=== PATIENT | female | born 1985 | race African-American/Black ===

== ENCOUNTER 2020-02-28 09:21 | Emergency (ER) | payer BC, SELFPAY ==
--- NOTE | ~2020-02-28 | XR_ITS ---
EXAMINATION: XR chest 2V 02/28/2020 10:32 INDICATION: Chest pain. Respiratory distress. PROCEDURE: 2 view chest COMPARISON: No prior studies for comparison. FINDINGS: The lungs are clear. The cardiomediastinal silhouette is within normal limits. There are no pleural effusions. There is no pneumothorax suspected. IMPRESSION: 1: NO ACUTE CARDIOPULMONARY DISEASE. Reviewed, dictated and finalized at location B. 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
--- NOTE | ~2020-02-28 | XR_ITS ---
EXAMINATION: XR foot RT min 3V DATE: 02/28/2020 10:32 INDICATION: Right foot pain. TECHNIQUE: 4 views of right foot were obtained. COMPARISON: None. FINDINGS: Bone alignment is normal. No acute fracture. There is an old healed fracture of diaphysis o f fifth metatarsal. Joint spaces are normal. There is an enthesophyte at posterior aspect of calcanea l tuberosity. IMPRESSION: 1. No acute fracture. Reviewed, dictated and finalized at location A. TUTOR IMPRESSION: 1. No acute fracture.
[2020-02-28 09:43] VITALS: BP 121/62; PULSE 74; RESP 18; TEMP 36.2; O2SAT 99
[2020-02-28] MEDS: predniSONE 20 MG TABLET 60 MG PO (12:06)
--- NOTE | 2020-02-28 12:45 | ED.GENADULT ---
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 prolonged time noting aching pain worse with weightbearing and activity patient also notes she has had some tightness of the chest with history of asthma and tobacco abuse but denies chest pain fever chills or URI symptoms and on arrival is in the room in no distress and does not appear uncomfortable Related Data Home Medications Medication Instructions Recorded Confirmed albuterol sulfate INHALATION 02/28/20 Allergies Allergy/AdvReac Type Severity Reaction Status Date / Time sulfamethoxazole Allergy Other Verified 02/28/20 11:32 [From Bactrim] trimethoprim [From Bactrim] Allergy Other Verified 02/28/20 11:32 Review of Systems Review of Systems: All systems reviewed & are unremarkable except as noted in HPI and below PMFSH Past Medical History Medical History (Updated 02/28/20 @ 12:51 by Hussain Harrison PA-C) Asthma Social History Social History (Updated 02/28/20 @ 12:47 by Hussain Harrison PA-C) Smoking status: Current every day smoker Gender identity (if verbalized by the patient): Female Sexual Orientation (if Verbalized by the Patient): Straight or Heterosexual Exam Narrative: Exam Narrative: GENERAL: Well-appearing, well-nourished, and in no acute distress. HEAD: Normocephalic, atraumatic. EYES: PERRLA and EOMI. ENT: Nares clear, no rhinorrhea or epistaxis. Mucous membranes moist. CHEST: Clear to auscultation. No respiratory distress. Expiratory wheezes noted no crackles HEART: Regular rate and rhythm. No murmur heard. Normal peripheral pulses. ABDOMEN: Soft, nontender, nondistended, normal active bowel sounds. EXTREMITIES: Normal range of motion. No edema. Tenderness of the plantar surface of the right midfoot no deformities noted remainder of foot and extremity without deformity SKIN: Warm, dry, no rash. NEURO: No focal deficits. Alert and oriented x3. Neurovascularly intact PSYCH: Normal mood and affect. Course Course Emergency Course: Patient in the room in no distress was evaluated negative x-rays felt appropriate for outpatient reevaluation will be given steroids for bronchitis advised to discontinue smoking and given instructions for podiatry follow-up and reasons to return Vital Signs Vital signs: Vital Signs Temperature 97.2 F L 02/28/20 09:43 Pulse Rate 74 02/28/20 09:43 Respiratory Rate 18 02/28/20 09:43 Blood Pressure 121/62 02/28/20 09:43 Pulse Oximetry 99 02/28/20 09:43 Temperature 97.2 F L 02/28/20 09:43 Pulse Rate 74 02/28/20 09:43 Respiratory Rate 18 02/28/20 09:43 Blood Pressure 121/62 02/28/20 09:43 Pulse Oximetry 99 02/28/20 09:43 Medical Decision Making MDM Narrative Medical decision making narrative: Patients injury or pain is consistent with musculoskeletal etiology. No signs of neurological or vascular compromise on exam. Compartments and tisues are soft without signs of compartment syndrome. Pain is felt appropriate for further evaluation on an outpatient basis. Vital Signs Vital Signs: Vital Signs Temperature 97.2 F L 02/28/20 09:43 Pulse Rate 74 02/28/20 09:43 Respiratory Rate 18 02/28/20 09:43 Blood Pressure 121/62 02/28/20 09:43 Pulse Oximetry 99 02/28/20 09:43 Temperature 97.2 F L 02/28/20 09:43 Pulse Rate 74 02/28/20 09:43 Respiratory Rate 18 02/28/20 09:43 Blood Pressure 121/62 02/28/20 09:43 Pulse Oximetry 99 02/28/20 09:43 Imaging Data Radiologist's impression: ITS Impressions Chest X-Ray 02/28/20 10:34 IMPRESSION: 1: NO ACUTE CARD
[2020-02-28 13:02] VITALS: BP 118/51; PULSE 64; RESP 16; TEMP 36.9; O2SAT 100
== END 2020-02-28 13:01 | disposition home or self-care (01) ==
PROVIDERS: Emergency Provider Emergency Medicine
DX: M79.671 Pain in right foot (principal); J45.909 Unspecified asthma, uncomplicated; F17.200 Nicotine dependence, unspecified, uncomplicated
CPT/HCPCS: 71046; 73630; 99284; J7512

== ENCOUNTER 2020-08-11 22:40 | Emergency (ER) | payer BC, SELFPAY ==
--- NOTE | ~2020-08-11 | XR_ITS ---
EXAMINATION: XR chest 2V DATE: 08/11/2020 23:51 INDICATION: Cough and shortness of breath TECHNIQUE: PA and lateral views of the chest are obtained. COMPARISON: 02/28/2020 FINDINGS: The lungs are free of acute opacities. There is no pleural effusion or pneumothorax. The ca rdiomediastinal silhouette is normal. The visualized bones and soft tissues are unremarkable. IMPRESSION: 1. No acute cardiopulmonary abnormality. Reviewed, dictated and finalized at location A.
[2020-08-11 22:40] VITALS: BP 124/70; PULSE 91; RESP 21; TEMP 36.7; O2SAT 96
[2020-08-11 22:45] VITALS: PULSE 82
[2020-08-11 22:46] VITALS: PULSE 82; RESP 12; O2SAT 94
--- NOTE | 2020-08-11 23:05 | ED.ASTHMA ---
HPI - Asthma General Chief Complaint: Asthma Stated Complaint: asthma Time Seen by Provider: 08/11/20 22:57 Source: patient Mode of arrival: ambulatory Limitations: no limitations History of Present Illness HPI Narrative: Patient is a 34-year-old female complaining of asthma attack , started yesterday worse today. Patient states that she has been having URI symptoms, described as cough, productive, yellowish-white sputum, accompanied by nasal congestion for the past 2 to 3 days. Patient states that she has a history of asthma and takes albuterol for it but states that she has not used it in a while and could be . Denies any chest pain, abdominal pain, fever, chills, nausea, vomiting, or diarrhea. Related Data Home Medications Medication Instructions Recorded Confirmed albuterol sulfate INHALATION 02/28/20 Allergies Allergy/AdvReac Type Severity Reaction Status Date / Time sulfamethoxazole Allergy Other Verified 08/11/20 22:47 [From Bactrim] trimethoprim [From Bactrim] Allergy Other Verified 08/11/20 22:47 Review of Systems Review of Systems: All systems reviewed & are unremarkable except as noted in HPI and below Constitutional: Constitutional: Denies body ache(s), Denies chills, Denies excessive sweating, Denies fatigue, Denies fever(s), Denies headache(s), Denies lethargy, Denies malaise, Denies weakness and Denies weight loss Eyes: Eyes: Denies blurry vision, Denies change in vision and Denies loss of vision ENT: Denies dizziness, Denies ear discharge, Denies headache(s), Denies lip swelling, Denies epistaxis, Denies neck pain, Denies throat swelling and Denies tongue swelling Cardiovascular: Cardiovascular: Denies chest pain, Denies chest pain at rest, Denies chest pain with activity, Denies diaphoresis, Denies rapid heart rate, Denies edema, Denies irregular heart rhythm, Denies lightheadedness and Denies palpitations Respiratory: Respiratory: Denies chest congestion and Denies hemoptysis Gastrointestinal: Gastrointestinal: Denies abdominal pain, Denies melena, Denies hematochezia, Denies diarrhea, Denies nausea, Denies vomiting and Denies hematemesis Musculoskeletal: Musculoskeletal: Denies abnormal gait, Denies deformity, Denies joint swelling, Denies limited range of motion, Denies neck pain and Denies numbness Neurologic: Denies Abnormal speech present, Denies abnormal gait, Denies confusion, Denies dizziness, Denies headache(s), Denies focal weakness, Denies loss of vision, Denies numbness, Denies Other visual disturbances, Denies Sensory deficit (Neuro) and Denies weakness Psychiatric: Psychiatric: Denies confusion, Denies depression, Denies auditory hallucinations, Denies homicidal ideation and Denies suicidal ideation Endocrine: Endocrine: Denies cold intolerance, Denies excessive sweating, Denies fatigue, Denies heat intolerance and Denies palpitations Hematologic/Lymphatic: Hematologic/Lymphatic: Denies easy bleeding and Denies easy bruising Allergic/Immunologic: Allergic/Immunologic: Denies lip swelling, Denies throat swelling and Denies tongue swelling PMF Past Medical History Medical History (Updated 08/12/20 @ 00:01 by Law Tan MD) Asthma Social History Social History (Updated 02/28/20 @ 12:47 by Hussain Harrison PA-C) Smoking status: Current every day smoker Gender identity (if verbalized by the patient): Female Comments Past medical history: Asthma Social history: Half pack per day smoker, no EtOH or drug use Family history: Diabetes, hypertension Exam Const: General: cooperative, healthy appearing, comfortable, no acute distress, well developed, alert and awake; No confusion Orientation/consciousness: oriented to person, oriented to place, oriented to time, patient oriented x3 and No confusion Limitations: no limitations Other: Mild distress HENMT: Head: normal to inspection, normocephalic and atraumatic Ears: hearing grossly normal bilaterally, TM
[2020-08-11] MEDS: IPRATROPIUM BR 0.02% INH SOLN 0.5 MG/2.5 ML VIAL INHALATION (23:12)
[2020-08-11] MEDS: ALBUTEROL SULFATE NEB 2.5 MG/0.5 ML INH 5 MG INHALATION (23:12)
[2020-08-11 23:13] VITALS: PULSE 89; RESP 20
[2020-08-11 23:20] VITALS: PULSE 94; RESP 20
[2020-08-11 23:52] VITALS: PULSE 82; RESP 18; O2SAT 97
[2020-08-12 00:18] VITALS: BP 97/68; PULSE 84; RESP 18; TEMP 36.7; O2SAT 99
[2020-08-12] MEDS: ACETAMINOPHEN 325 MG TABLET 650 MG PO (00:18)
== END 2020-08-12 00:19 | disposition home or self-care (01) ==
PROVIDERS: Emergency Provider Emergency Medicine
DX: J45.21 Mild intermittent asthma with (acute) exacerbation (principal); J06.9 Acute upper respiratory infection, unspecified
CPT/HCPCS: 71046; 94640; 99283; A9270

== ENCOUNTER 2021-07-17 07:47 | Emergency (ER) | payer BC, SELFPAY ==
--- NOTE | ~2021-07-17 | US_ITS ---
EXAMINATION: US OB <= 14 weeks fetus DATE: 07/17/2021 12:09 INDICATION: Bleeding and abdominal pain during first trimester TECHNIQUE: Real-time pelvic ultrasound utilizing both a transvaginal and transabdominal probe was pe rformed. The interpreting radiologist was not present for the study. COMPARISON: None. FINDINGS: The uterus measures 8.3 x 4.7 x 4.4 cm. The endometrial complex [id number] mm in thickness with no d efinite intrauterine gestational sac. There are a few small nonspecific regions of increased echogeni city without posterior acoustic shadowing at the posterior margin of the endometrial complex potentia lly representing small amount of hemorrhage. The right ovary measures 3.2 x 2.0 x 1.5 cm. The left ovary measures 3.2 x 1.9 x 1.5 cm. 1.7 x 0.9 cm thick-walled hypoechoic corpus luteum cyst in the left ovary. Vascular flow identified in both ovari es on color Doppler. There is no free fluid in the pelvis. IMPRESSION: 1. No evident intrauterine gestational sac. Differential includes early , failed o r ectopic . 2. A few small foci of increased echogenicity without shadowing to suggest calcification along the po sterior margin of the endometrial complex which could represent hemorrhage. Reviewed, dictated and finalized at location A. IMPRESSION: 1. No evident intrauterine gestational sac. Differential includes early pregnan cy, failed or ectopic . 2. A few small foci of increased echogenicity without shadowing to suggest calc ification along the posterior margin of the endometrial complex which could rep resent hemorrhage.
[2021-07-17 07:51] VITALS: BP 122/75; PULSE 82; RESP 18; TEMP 36.4; O2SAT 99
--- NOTE | 2021-07-17 07:57 | PC.NURSE ---
Pt states she believes she is approximately 4 weeks . LMP in may. Pt reports light spotting since yesterday. Denies abd pain.
[2021-07-17 08:43] LABS: Add Urine Microscopic? YES; Appearance Urine Clear (Clear); Bilirubin Urine Negative (Negative); Blood Urine 3+ (Negative); Color Urine Yellow (Yellow); Glucose Urine UA Negative (Negative); Ketones Urine Negative (Negative); Leukocyte Esterase Ur Negative LEU/UL (Negative); Mucus Urine Rare /lpf; Nitrate Urine Negative (Negative); Protein Urine Negative (Negative); Squamous Epithelial Cell Urine Few /hpf (Few); Urobilinogen Urine Negative mg/dL (<2.0)
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
[2021-07-17 10:01] LABS: Basophils Percent Auto 0.3 % (0.2-1.2); Eosinophils Absolute Auto 0.1 K/mm3 (0-0.3); Eosinophils Percent Auto 1.5 % (0-4.4); Hematocrit 31.4 % (37.0-47.0); Hemoglobin 10.6 g/dL (12.0-15.0); Immature Granulocyte Absolute 0.01 K/mm3 (0.00-0.031); Immature Granulocyte Percent A 0.1 % (0-0.5); Lymphocytes Absolute Auto 2.09 K/mm3 (0.9-3.2); Lymphocytes Percent Auto 31.1 % (18.3-44.2); Mean Corpuscular HGB Conc 33.8 g/dl (32-36); Mean Corpuscular Hemoglobin 30.5 pg (26-34); Mean Corpuscular Volume 90.2 fl (80-100); Mean Platelet Volume 8.6 fl (7.4-10.4); Monocytes Absolute Auto 0.6 K/mm3 (0.1-0.6); Monocytes Percent Auto 9.1 % (2.6-8.5); Neutrophils Absolute Auto 3.9 K/mm3 (1.3-6.7); Neutrophils Percent Auto 57.9 % (45.5-73.1); Platelet Count Result 249 k/mm3 (150-375); Red Blood Count 3.48 M/mm3 (4.2-5.4); Red Cell Distribution Width 13.3 % (11.5-14.5); White Blood Count 6.7 K/mm3 (4.5-10.0)
[2021-07-17 10:14] LABS: Alanine Aminotransferase 13 U/L (4-35); Albumin Level 3.9 g/dL (3.5-5.1); Alkaline Phosphatase 63 U/L (38-126); Anion Gap 4 mmol/L (8-16); Aspartate Amino Transferase 22 U/L (14-36); Bilirubin,Total 0.2 mg/dL (0.2-1.3); Blood Urea Nitrogen 10 mg/dL (7-17); Calcium 8.6 mg/dL (8.4-10.2); Carbon Dioxide 22 mmol/L (22-30); Chloride 110 mmol/L (98-107); Estimated CRCL calculation 103 ml/min; Estimated Glomerular Filt Rate > 60; Glucose 91 mg/dL (65-110); Potassium 3.9 mmol/L (3.4-5.0); Sodium 136 mmol/L (137-145)
--- NOTE | 2021-07-17 11:41 | PC.NURSE ---
Pt in ultrasound.
--- NOTE | 2021-07-17 13:17 | PC.NURSE ---
Pt informatics physician liaison light asking to speak with physician. CINDY Hampton made aware.
[2021-07-17 13:22] VITALS: BP 112/97; PULSE 69; RESP 18; O2SAT 100
[2021-07-17 14:39] VITALS: BP 103/73; PULSE 70; RESP 16; O2SAT 99
== END 2021-07-17 14:27 | disposition home or self-care (01) ==
PROVIDERS: Physician Assistant; Emergency Provider Emergency Medicine
DX: O20.0 Threatened abortion (principal); Z3A.01 Less than 8 weeks gestation of pregnancy; O99.511 Diseases of the respiratory system complicating pregnancy, first trimester; J45.909 Unspecified asthma, uncomplicated; O99.331 Smoking (tobacco) complicating pregnancy, first trimester; F17.200 Nicotine dependence, unspecified, uncomplicated
CPT/HCPCS: 36415; 76801; 80053; 81001; 81025; 84702; 85025; 85461; 87086; 99284

== ENCOUNTER 2021-11-16 11:52 | Emergency (ER) | payer BC, SELFPAY ==
[2021-11-16 12:02] VITALS: PULSE 79; RESP 16; TEMP 36.6; O2SAT 100
[2021-11-16 12:30] VITALS: PULSE 98; RESP 23
--- NOTE | 2021-11-16 12:33 | PC.NURSE ---
Notified Dr Goodrich of pt's positive test results.
[2021-11-16] MEDS: IPRATROPIUM BR 0.02% INH SOLN 0.5 MG/2.5 ML VIAL INHALATION (12:35)
[2021-11-16] MEDS: ALBUTEROL SULFATE NEB 2.5 MG/3 ML INH 5 MG INHALATION (12:35)
--- NOTE | 2021-11-16 13:34 | ED.HA ---
HPI - Headache General Chief Complaint: Headache Stated Complaint: headache Time Seen by Provider: 11/16/21 11:58 History of Present Illness HPI Narrative: Patient is a 36-year-old female who presents ER with headache. Ongoing for week. Aching on the right side of the forehead and then also some pain in the neck. No fevers or chills or sweats. Mild sinus congestion no sore throat or cough. Has been trying some Benadryl for the congestion with minimal improvement. She takes Tylenol, ibuprofen, and BC powder for the headache which helps with the headache returns. Reports increased stress. Has not had a period since June 2021 when she had a miscarriage. Concerned she may be but has not yet taken a test. No lower abdominal pain. No vaginal bleeding or discharge. Denies numbness or tingling to the arms or legs. No recent trauma. Related Data Home Medications Medication Instructions Recorded Confirmed albuterol sulfate 90 mcg/actuation inhalation 02/28/20 07/22/21 breath activated powder inhaler Allergies Allergy/AdvReac Type Severity Reaction Status Date / Time sulfamethoxazole Allergy Other Verified 11/16/21 12:01 [From Bactrim] trimethoprim [From Bactrim] Allergy Other Verified 11/16/21 12:01 Review of Systems Review of Systems: All systems reviewed & are unremarkable except as noted in HPI and below Constitutional: Constitutional: Denies chills, Denies fatigue and Denies fever(s) Eyes: Eyes: Denies change in vision and Denies photophobia ENT: Reports nasal congestion and Denies sore throat Respiratory: Respiratory: Denies cough, Denies dyspnea and Denies wheezing Gastrointestinal: Gastrointestinal: Denies abdominal pain, Denies nausea and Denies vomiting Genitourinary: Genitourinary: Denies abnormal vaginal bleeding, Denies nocturia, Denies dysuria and Denies pelvic pain Neurologic: Denies syncope, Reports headache(s), Denies focal weakness and Denies numbness PMFSH Past Medical History Medical History Anxiety Asthma GERD (gastroesophageal reflux disease) Surgical History Surgical History No pertinent past surgical history [place] teeth removed Social History Social History Smoking status: Current every day smoker Tobacco type: cigarettes Alcohol intake: current Substance use: current Substance use type: marijuana Gender identity (if verbalized by the patient): Female Sexual Orientation (if Verbalized by the Patient): Straight or Heterosexual Exam Narrative: GENERAL: Well-appearing, well-nourished, and in no acute distress. HEAD: Normocephalic, atraumatic. EYES: PERRL and EOMI. ENT: Mucous membranes moist. Mild tenderness right frontal sinus. No maxillary sinus tenderness. TMs normal bilaterally. CHEST: Clear to auscultation. No respiratory distress. HEART: Regular rate and rhythm. Normal peripheral pulses. ABDOMEN: Soft, nontender, nondistended. EXTREMITIES: Normal range of motion. No edema. NEURO: Alert and oriented x3. PSYCH: Normal mood and affect. Course Course Emergency Course: Patient resting comfortably. Informed of results. Patient tearful after discovering she was . Reports she is worried about what family members will say. She does not currently have an OB although she has seen Dr. Vernon in the past. Discussed she is welcome to follow-up with Dr. Reyes but will provide her the name of the on-call OB. Patient inquiring whether her headache could be related to stress. Discussed that it is certainly a possibility. Recommend Tylenol for headache. Will provide some Flonase for the sinus congestion. Vital Signs Vital signs: Vital Signs Temperature 97.8 F 11/16/21 12:02 Pulse Rate 79 11/16/21 12:02 Respiratory Rate 16 11/16/21 12:02 Pulse Oxi
[2021-11-16 13:50] VITALS: BP 107/78; PULSE 74; O2SAT 100
== END 2021-11-16 13:52 | disposition home or self-care (01) ==
PROVIDERS: Emergency Provider Emergency Medicine
DX: O26.899 Other specified pregnancy related conditions, unspecified trimester (principal); R51.9 Headache, unspecified; O99.519 Diseases of the respiratory system complicating pregnancy, unspecified trimester; J45.909 Unspecified asthma, uncomplicated; O99.619 Diseases of the digestive system complicating pregnancy, unspecified trimester; K21.9 Gastro-esophageal reflux disease without esophagitis; O99.330 Smoking (tobacco) complicating pregnancy, unspecified trimester; F17.210 Nicotine dependence, cigarettes, uncomplicated; Z3A.00 Weeks of gestation of pregnancy not specified
CPT/HCPCS: 81025; 94640; 99283

== ENCOUNTER 2021-11-27 17:02 | Emergency (ER) | payer BC, SELFPAY ==
--- NOTE | ~2021-11-27 | US_ITS ---
EXAMINATION: US OB <= 14 weeks fetus INDICATION: 15 weeks , vaginal bleeding TECHNIQUE: Sonography of the pelvis was performed by transabdominal techniques. COMPARISON: None. RESULT: Uterus: - Orientation: Anteverted - Size: 12.6 x 9.6 x 9.2 cm - Myometrium: homogeneous echogenicity Gestation: - Intrauterine gestational sac: Single present - Embryo: Single present - [place] rump length: 7.57 cm, corresponding gestational age 13 weeks, 5 days -Gestational heart rate: present 145 bpm -Subgestational hematoma: Absent Right ovary: -Not visualized. No adnexal mass detected transabdominally. Left ovary: -Not visualized. No adnexal mass detected transabdominally. Pelvis free fluid: None. IMPRESSION: Single, live intrauterine gestation. Estimated Gestational Age: 13 weeks, 5 days by crown rump length. GRETCHEN by ultrasound 05/30/2022. Reviewed, dictated and finalized at location K. IMPRESSION: Single, live intrauterine gestation. Estimated Gestational Age: 13 weeks, 5 days by crown rump length. GRETCHEN by ultra sound 05/30/2022.
[2021-11-27 17:06] VITALS: BP 114/49; PULSE 92; RESP 19; TEMP 36.7; O2SAT 97
[2021-11-27 17:25] LABS: Basophils Percent Auto 0.2 % (0.2-1.2); Eosinophils Absolute Auto 0.4 K/mm3 (0-0.3); Eosinophils Percent Auto 4.1 % (0-4.4); Hematocrit 28.6 % (37.0-47.0); Hemoglobin 9.5 g/dL (12.0-15.0); Immature Granulocyte Absolute 0.02 K/mm3 (0.00-0.031); Immature Granulocyte Percent A 0.2 % (0-0.5); Lymphocytes Absolute Auto 2.03 K/mm3 (0.9-3.2); Lymphocytes Percent Auto 20.2 % (18.3-44.2); Mean Corpuscular HGB Conc 33.2 g/dl (32-36); Mean Corpuscular Hemoglobin 30.3 pg (26-34); Mean Corpuscular Volume 91.1 fl (80-100); Mean Platelet Volume 8.7 fl (7.4-10.4); Monocytes Absolute Auto 0.6 K/mm3 (0.1-0.6); Monocytes Percent Auto 5.5 % (2.6-8.5); Neutrophils Percent Auto 69.8 % (45.5-73.1); Platelet Count Result 246 k/mm3 (150-375); Red Blood Count 3.14 M/mm3 (4.2-5.4); Red Cell Distribution Width 12.9 % (11.5-14.5); White Blood Count 10.1 K/mm3 (4.5-10.0)
--- NOTE | 2021-11-27 17:51 | ED.PREGNANCY ---
HPI - General Chief complaint: Vaginal Bleeding Stated complaint: 15 weeks preg, spotting Time Seen by Provider: 11/27/21 17:32 History of Present Illness HPI Narrative: 36-year-old female who is 15 weeks with no care G4, P2 presents the emergency room for sudden onset of a scant amount of vaginal bleeding. Patient states that she saw vaginal bleeding began later this afternoon. Denies any abdominal pain or cramping. Patient admits that she recently had a miscarriage earlier this year. Related Data Home Medications Medication Instructions Recorded Confirmed albuterol sulfate 90 mcg/actuation inhalation 02/28/20 07/22/21 breath activated powder inhaler Allergies Allergy/AdvReac Type Severity Reaction Status Date / Time sulfamethoxazole Allergy Other Verified 11/27/21 18:35 [From Bactrim] trimethoprim [From Bactrim] Allergy Other Verified 11/27/21 18:35 Review of Systems Review of Systems: CONSTITUTIONAL: Denies fever, chills, or sweats. EYES: Denies visual changes, redness, or discharge. ENT: Denies rhinorrhea, congestion, sore throat, or otalgia. CARDIOVASCULAR: Denies chest pain, palpitations, or edema. RESPIRATORY: Denies cough or dyspnea. GASTROINTESTINAL: Denies abdominal pain, nausea, vomiting, or diarrhea. GENITOURINARY: Reports vaginal bleeding SKIN: Denies rash or itching. MUSCULOSKELETAL: Denies back pain, joint pain, or myalgia. NEUROLOGIC: Denies headache, numbness, dizziness, or weakness. PSYCHIATRIC: Denies anxiety or depression. PMFSH Past Medical History Medical History Anxiety Asthma GERD (gastroesophageal reflux disease) Surgical History Surgical History No pertinent past surgical history [place] teeth removed Social History Social History Smoking status: Current every day smoker Tobacco type: cigarettes Alcohol intake: current Substance use: current Substance use type: marijuana Gender identity (if verbalized by the patient): Female Sexual Orientation (if Verbalized by the Patient): Straight or Heterosexual Exam Narrative: GENERAL: Well-appearing, well-nourished, no physical limitations, and in no acute distress. HEAD: Normocephalic, atraumatic. EYES: Conjunctivae normal, PERRLA and EOMI. CHEST: Clear to auscultation. No respiratory distress. No wheezes rales or rhonchi. No tenderness. HEART: Regular rate and rhythm. No murmur heard. Normal peripheral pulses. ABDOMEN: Soft, nontender, nondistended, normal active bowel sounds. BACK: No CVA tenderness EXTREMITIES: Normal range of motion. No edema. No clubbing or cyanosis SKIN: Warm, dry, no rash. No noted wounds NEURO: No focal deficits. Alert and oriented x3. MAEW. CN's II-XI intact bilaterally, normal gait PSYCH: Cooperative. Normal mood and affect. Course Vital Signs Vital signs: Vital Signs Temperature 36.7 C 11/27/21 17:06 Pulse Rate 92 11/27/21 17:06 Respiratory Rate 19 11/27/21 17:06 Blood Pressure 114/49 L 11/27/21 17:06 Pulse Oximetry 97 11/27/21 17:06 Oxygen Delivery Room Air 11/27/21 17:06 Temperature 36.7 C 11/27/21 17:06 Pulse Rate 80 11/27/21 19:33 Respiratory Rate 20 11/27/21 19:33 Blood Pressure 106/64 11/27/21 19:33 Pulse Oximetry 97 11/27/21 19:33 Oxygen Delivery Room Air 11/27/21 17:06 MDM - OB/Uterine Contractions Lab Data Result diagrams: 11/27/21 17:13 Labs: Lab Results 11/27/21 11/27/21 11/27/21 Range/Units 17:13 17:13 17:13 WBC 10.1 H (4.5-10.0) K/mm3 RBC 3.14 L (4.2-5.4) M/mm3 Hgb 9.5 L (12.0-15.0) g/dL Hct 28.6 L (37.0-47.0) % MCV 91.1 (80-100) fl MCH 30.3 (26-34) pg MCHC 33.2 (32-36) g/dl RDW 12.9 (11.5-14.5) % Plt Count 246 (150-375) k/mm3 MPV 8.7 (7.4-10.4
--- NOTE | 2021-11-27 18:34 | PC.NURSE ---
pt taken to ultrasound at this time
--- NOTE | 2021-11-27 19:10 | PC.NURSE ---
Report received from LONI Chamberlain. Assumed care of patient at this time.
[2021-11-27 19:33] VITALS: BP 106/64; PULSE 80; RESP 20; O2SAT 97
== END 2021-11-27 20:00 | disposition home or self-care (01) ==
PROVIDERS: Emergency Medicine; Emergency Provider Nurse Practitioner Family
DX: O23.41 Unspecified infection of urinary tract in pregnancy, first trimester (principal); N39.0 Urinary tract infection, site not specified; O99.511 Diseases of the respiratory system complicating pregnancy, first trimester; J45.909 Unspecified asthma, uncomplicated; Z3A.13 13 weeks gestation of pregnancy; O99.331 Smoking (tobacco) complicating pregnancy, first trimester; F17.210 Nicotine dependence, cigarettes, uncomplicated
CPT/HCPCS: 36415; 76801; 84702; 85025; 85461; 99284

== ENCOUNTER 2021-11-28 20:10 | Emergency (ER) | payer BC, SELFPAY ==
[2021-11-28 21:07] VITALS: BP 106/80; PULSE 70; RESP 18; TEMP 36.5; O2SAT 100
--- NOTE | 2021-11-28 21:26 | ED.FEMALEGU ---
HPI - Female Genitourinary General Chief complaint: Vaginal Bleeding Stated complaint: 15 weeks preg, vaginal bleeding Time Seen by Provider: 11/28/21 21:17 History of Present Illness HPI Narrative: 36-year-old female returns to the emergency room for continued vaginal bleeding. . Patient is a approximately 14 weeks per her the pelvic ultrasound that was completed yesterday. Patient states that she feels that the bleeding is heavier than yesterday. Denies saturating any pads. Patient has not had any care up to this point. Denies any abdominal pain or cramping. Related Data Home Medications Medication Instructions Recorded Confirmed albuterol sulfate 90 mcg/actuation inhalation 02/28/20 07/22/21 breath activated powder inhaler Allergies Allergy/AdvReac Type Severity Reaction Status Date / Time sulfamethoxazole Allergy Other Verified 11/28/21 21:38 [From Bactrim] trimethoprim [From Bactrim] Allergy Other Verified 11/28/21 21:38 Review of Systems Review of Systems: CONSTITUTIONAL: Denies fever, chills, or sweats. EYES: Denies visual changes, redness, or discharge. ENT: Denies rhinorrhea, congestion, sore throat, or otalgia. CARDIOVASCULAR: Denies chest pain, palpitations, or edema. RESPIRATORY: Denies cough or dyspnea. GASTROINTESTINAL: Denies abdominal pain, nausea, vomiting, or diarrhea. GENITOURINARY: Reports vaginal bleeding SKIN: Denies rash or itching. MUSCULOSKELETAL: Denies back pain, joint pain, or myalgia. NEUROLOGIC: Denies headache, numbness, dizziness, or weakness. PSYCHIATRIC: Denies anxiety or depression. [facility] Past Medical History Medical History Anxiety Asthma GERD (gastroesophageal reflux disease) Surgical History Surgical History No pertinent past surgical history [place] teeth removed Social History Social History Smoking status: Current every day smoker Tobacco type: cigarettes Alcohol intake: current Substance use: current Substance use type: marijuana Gender identity (if verbalized by the patient): Female Sexual Orientation (if Verbalized by the Patient): Straight or Heterosexual Exam Narrative: GENERAL: Well-appearing, well-nourished, no physical limitations, and in no acute distress. HEAD: Normocephalic, atraumatic. EYES: Conjunctivae normal, PERRLA and EOMI. CHEST: Clear to auscultation. No respiratory distress. No wheezes rales or rhonchi. No tenderness. HEART: Regular rate and rhythm. No murmur heard. Normal peripheral pulses. ABDOMEN: Soft, nontender, nondistended, normal active bowel sounds. FHT 145 : Normal external female exam. Scant amount of vaginal blood in the vaginal vault Cervical os is closed. BACK: No CVA tenderness; No cervical/thoracic/lumbar tenderness, step-offs, bony abnormality; FROM EXTREMITIES: Normal range of motion. No edema. No clubbing or cyanosis SKIN: Warm, dry, no rash. No noted wounds NEURO: No focal deficits. Alert and oriented x3. MAEW. CN's II-XI intact bilaterally, normal gait PSYCH: Cooperative. Normal mood and affect. Course Vital Signs Vital signs: Vital Signs Temperature 36.5 C 11/28/21 21:07 Pulse Rate 70 11/28/21 21:07 Respiratory Rate 18 11/28/21 21:07 Blood Pressure 106/80 11/28/21 21:07 Pulse Oximetry 100 11/28/21 21:07 Oxygen Delivery Room Air 11/28/21 21:07 Temperature 36.5 C 11/28/21 21:07 Pulse Rate 70 11/28/21 21:07 Respiratory Rate 18 11/28/21 21:07 Blood Pressure 106/80 11/28/21 21:07 Pulse Oximetry 100 11/28/21 21:07 Oxygen Delivery Room Air 11/28/21 21:07 MDM - Female Genitourinary MDM Narrative Medical decision making narrative: Discussed case with Dr. Siddiqi. She recommends patient following up with an LEAN LEADER through [facility]. Lab Data Result diagrams:
[2021-11-28] MEDS: SODIUM CHLORIDE 0.9% IV 1,000 ML 999 ML IV CONT (21:43)
[2021-11-28 21:54] LABS: Basophils Percent Auto 0.3 % (0.2-1.2); Eosinophils Absolute Auto 0.4 K/mm3 (0-0.3); Eosinophils Percent Auto 4.6 % (0-4.4); Hematocrit 29.8 % (37.0-47.0); Hemoglobin 9.8 g/dL (12.0-15.0); Immature Granulocyte Absolute 0.03 K/mm3 (0.00-0.031); Immature Granulocyte Percent A 0.3 % (0-0.5); Lymphocytes Absolute Auto 2.08 K/mm3 (0.9-3.2); Lymphocytes Percent Auto 22.5 % (18.3-44.2); Mean Corpuscular HGB Conc 32.9 g/dl (32-36); Mean Corpuscular Hemoglobin 30.1 pg (26-34); Mean Corpuscular Volume 91.4 fl (80-100); Mean Platelet Volume 8.9 fl (7.4-10.4); Monocytes Absolute Auto 0.6 K/mm3 (0.1-0.6); Monocytes Percent Auto 6.8 % (2.6-8.5); Neutrophils Percent Auto 65.5 % (45.5-73.1); Platelet Count Result 263 k/mm3 (150-375); Red Blood Count 3.26 M/mm3 (4.2-5.4); White Blood Count 9.2 K/mm3 (4.5-10.0)
[2021-11-28 22:32] LABS: Appearance Urine Clear (Clear); Bilirubin Urine Negative (Negative); Blood Urine 3+ (Negative); Color Urine Yellow (Yellow); Glucose Urine UA Negative (Negative); Ketones Urine Negative (Negative); Leukocyte Esterase Ur Negative LEU/UL (Negative); Nitrate Urine Negative (Negative); Protein Urine Negative (Negative); Specific Grav Ur 1.025 (1.001-1.035)
[2021-11-28 22:47] LABS: Add Urine Microscopic? YES
[2021-11-28 22:48] LABS: RBC Urine 51-75 /hpf (0-2); Squamous Epithelial Cell Urine Moderate /hpf (Few); WBC Urine 0-3 /hpf
[2021-11-29] VITALS: BP 124/77; PULSE 72; RESP 16; O2SAT 100
== END 2021-11-29 00:02 | disposition home or self-care (01) ==
PROVIDERS: Emergency Provider Nurse Practitioner Family
DX: O20.9 Hemorrhage in early pregnancy, unspecified (principal); O99.512 Diseases of the respiratory system complicating pregnancy, second trimester; J45.909 Unspecified asthma, uncomplicated; O99.612 Diseases of the digestive system complicating pregnancy, second trimester; K21.9 Gastro-esophageal reflux disease without esophagitis; O99.332 Smoking (tobacco) complicating pregnancy, second trimester; F17.210 Nicotine dependence, cigarettes, uncomplicated; Z3A.14 14 weeks gestation of pregnancy
CPT/HCPCS: 36415; 81001; 85025; 96360; 99284; J7030

== ENCOUNTER 2022-02-13 07:55 | Observation (INO) | payer BC, SELFPAY ==
[2022-02-13] VITALS (8 sets, daily range): BP systolic 96–144; BP diastolic 44–99; PULSE 75–193; TEMP 36.6; BMI 23.8
--- NOTE | ~2022-02-13 | US_ITS ---
EXAMINATION: US OB limited DATE: 02/13/2022 10:14 INDICATION: Vaginal bleeding . Placental check. TECHNIQUE: Real-time ultrasound of the pelvis was performed. The interpreting radiologist was not pre sent for the study. COMPARISON: None. FINDINGS: There is a single living fetus in breech presentation. The placenta is anterior with no evident subc horionic hematoma. The caudal margin of the placenta is approximately 5.1 cm from the internal cervic al os. heart rate is 134 beats per minute (bpm). The amniotic fluid index is 11.9 cm, which is normal (5th%-95%: 9.7-22.2 cm at 25 weeks estimated gestational age). IMPRESSION: 1. Single living fetus in breech presentation with heart rate of 134 bpm. 2. Normal amniotic fluid index of 11.9 cm. 3. Normal anterior placenta with caudal margin 5.1 cm from the internal cervical os. Reviewed, dictated and finalized at location A. HOUSE DELIVERY DRIVER IMPRESSION: 1. Single living fetus in breech presentation with heart rate of 134 bpm . 2. Normal amniotic fluid index of 11.9 cm. 3. Normal anterior placenta with caudal margin 5.1 cm from the internal cervica l os.
--- NOTE | 2022-02-15 07:44 | PM.OBTRLD ---
OB - Triage/Final Diagnosis Visit Information Reason for evaluation: threatened labor Comments/Additional reasons for admission: I have assessed the risk for this patient, Loraine Arnold, and determined that she would benefit from observation care. Evaluation Laboratory results: Laboratory Tests 02/13/22 08:54 KB Hemoglobin Negative
== END 2022-02-13 11:05 | disposition home or self-care (01) ==
PROVIDERS: Admitting Provider Obstetrics & Gynecology; Visit Provider Obstetrics & Gynecology
DX: O47.02 False labor before 37 completed weeks of gestation, second trimester (principal); Z3A.25 25 weeks gestation of pregnancy
CPT/HCPCS: 36415; 76815; 85460; G0378; G0379

== ENCOUNTER 2022-11-05 08:34 | Emergency (ER) | payer OTHER, SELFPAY ==
[2022-11-05] VITALS (14 sets, daily range): BP systolic 100–140; BP diastolic 62–95; PULSE 66–104; RESP 12–20; TEMP 36.2; O2SAT 97–100
--- NOTE | ~2022-11-05 | XR_ITS ---
EXAMINATION: XR chest 2V DATE: 11/05/2022 11:14 INDICATION: Cough and congestion TECHNIQUE: PA and lateral views of the chest are obtained. COMPARISON: 08/11/2020 FINDINGS: The lungs are free of acute opacities. No pleural effusion or pneumothorax. The cardiomedia stinal silhouette is normal. The visualized bones and soft tissues are unremarkable. IMPRESSION: 1. No acute cardiopulmonary abnormality. Reviewed, dictated and finalized at location A.
--- NOTE | 2022-11-05 09:13 | ECG_ITS ---
Measurements Intervals [place] Rate: 59 P: 72 [place]: 179 QRS: 18 QRSD: 83 T: 11 QT: 418 QTc: 416 Interpretive Statements SINUS BRADYCARDIA NONSPECIFIC T-WAVE ABNORMALITY ABNORMAL ECG NO PREVIOUS ECG AVAILABLE FOR COMPARISON Electronically Signed On 11-05-2022 12:41:09 CDT by Onur Rose M.D.
--- NOTE | 2022-11-05 09:16 | ED.URI ---
HPI - URI/Sore Throat General Chief Complaint: Upper Respiratory Infection Stated Complaint: headache, not feeling well Time Seen by Provider: 11/05/22 08:56 Source: patient Mode of arrival: ambulatory Limitations: no limitations History of Present Illness HPI Narrative: Patient is a 37 y/o female who presents to the ED with c/o URI sx's. Patient reports she began feeling unwell yesterday morning with sore throat, myalgias, headache, cough, congestion, wheezing. She feels like her asthma is acting up. She denies difficulty breathing or feeling short of breath but states the wheezing has been bothersome. Patient has an albuterol inhaler at home, which she has been trying but does not feel it is helping. She reports she previously has done well with Ventolin, but states her insurance would not approve it. She denies any chest pain, lower extremity pain or swelling. Denies fevers. Denies cough, vomiting, abdominal pain. Patient took Robitussin and Tylenol today. Related Data Home Medications Medication Instructions Recorded Confirmed albuterol sulfate 90 mcg/actuation inhalation 02/28/20 07/22/21 breath activated powder inhaler Allergies Allergy/AdvReac Type Severity Reaction Status Date / Time sulfamethoxazole Allergy Other Verified 11/28/21 21:38 [From Bactrim] trimethoprim [From Bactrim] Allergy Other Verified 11/28/21 21:38 Review of Systems Review of Systems: CONSTITUTIONAL: Denies fever, chills, or sweats. ENT: See HPI. CARDIOVASCULAR: Denies chest pain, palpitations, or edema. RESPIRATORY: See HPI. GASTROINTESTINAL: Denies abdominal pain, nausea, vomiting. MUSCULOSKELETAL: Denies back pain, joint pain, or myalgia. NEUROLOGIC: See HPI. All systems reviewed & are unremarkable except as noted in HPI and below PMFSH Past Medical History Medical History Anxiety Asthma GERD (gastroesophageal reflux disease) Surgical History Surgical History No pertinent past surgical history [place] teeth removed Social History Social History Smoking status: Current every day smoker Tobacco type: cigarettes Alcohol intake: current Substance use: current Substance use type: marijuana Gender identity (if verbalized by the patient): Female Sexual Orientation (if Verbalized by the Patient): Straight or Heterosexual Exam Narrative: GENERAL: Well appearing, well-nourished, non-toxic, in no acute distress. HEAD: Normocephalic, atraumatic. ENT: MMs moist. No significant posterior pharynx erythema. No tonsillar hypertrophy or exudate. Uvula midline. NECK: Supple. No adenopathy, no masses. RESPIRATORY: Airway patent, respirations nonlabored. Diffuse tight lung sounds bilaterally, scattered expiratory wheezing. CARDIOVASCULAR: Regular rate and rhythm without murmurs, rubs, or gallops. Radial pulses 2+ and equal bilaterally. ABDOMINAL: Soft, nontender, nondistended, no hepatosplenomegaly. Normoactive BS. MUSCULOSKELETAL: Moves all extremities. Strength/ROM intact without gross deformities. No edema. SKIN: Warm, dry, normal color. No rashes. NEURO: A&O X3. Speech clear. Cranial nerves II-XII grossly intact. Steady gait. No ataxic movements. PSYCHIATRIC: Appropriate mood and affect. Normal interaction. Course Vital Signs Vital signs: Vital Signs Temperature 97.2 F L 11/05/22 08:35 Pulse Rate 104 H 11/05/22 08:35 Respiratory Rate 16 11/05/22 08:35 Blood Pressure 134/87 11/05/22 08:35 Pulse Oximetry 97 11/05/22 08:35 Oxygen Delivery Room Air 11/05/22 08:35 Temperature 97.2 F L 11/05/22 08:35 Pulse Rate 72 11/05/22 12:13 Respiratory Rate 20 11/05/22 12:13 Blood Pressure 100/67 11/05/22 12:13 Pulse Oximetry 100 11/05/22 12:13 Oxygen Delivery Room Air 11/05/22 08:43
[2022-11-05 09:22] LABS: Strep Group A RT-PCR NOT DETECTED (Negative)
[2022-11-05 09:33] LABS: Influenza A QL RT-PCR Negative (Negative); Influenza B QL RT-PCR Negative (Negative); SARS-CoV-2 RNA PCR Negative (Negative)
[2022-11-05] MEDS: IPRATROPIUM BR 0.02% INH SOLN 0.5 MG/2.5 ML VIAL 1.5 MG INHALATION (09:40)
[2022-11-05] MEDS: LEVALBUTEROL NEB 1.25 MG/3 ML 2.5 MG INHALATION (09:40)
[2022-11-05 09:42] LABS: Basophils Percent Auto 0.1 % (0.2-1.2); Hematocrit 36.7 % (37.0-47.0); Immature Granulocyte Absolute 0.02 K/mm3 (0.00-0.031); Immature Granulocyte Percent A 0.2 % (0-0.5); Lymphocytes Percent Auto 6.9 % (18.3-44.2); Mean Corpuscular HGB Conc 32.7 g/dl (32-36); Mean Corpuscular Hemoglobin 30.1 pg (26-34); Mean Platelet Volume 9.2 fl (7.4-10.4); Monocytes Absolute Auto 0.2 K/mm3 (0.1-0.6); Monocytes Percent Auto 2.8 % (2.6-8.5); Neutrophils Absolute Auto 7.8 K/mm3 (1.3-6.7); Platelet Count Result 269 k/mm3 (150-375); Red Blood Count 3.99 M/mm3 (4.2-5.4); Red Cell Distribution Width 12.7 % (11.5-14.5); White Blood Count 8.6 K/mm3 (4.5-10.0)
[2022-11-05] MEDS: KETOROLAC 30 MG/ML VIAL (*BKC) IV PUSH (09:46)
[2022-11-05] MEDS: methylPREDNISolone SOD SUCC 125 MG VIAL IV PUSH (09:46)
[2022-11-05] MEDS: SODIUM CHLORIDE 0.9% IV 1,000 ML 999 ML IV CONT (09:47)
[2022-11-05 10:10] LABS: Alanine Aminotransferase 18 U/L (6-35); Alkaline Phosphatase 61 U/L (38-126); Anion Gap 4 mmol/L (8-16); Aspartate Amino Transferase 20 U/L (14-36); Bilirubin,Total 0.3 mg/dL (0.2-1.3); Blood Urea Nitrogen 10 mg/dL (7-17); Calcium 8.9 mg/dL (8.4-10.2); Carbon Dioxide 20 mmol/L (22-30); Chloride 109 mmol/L (98-107); Estimated CRCL calculation 105 ml/min; Estimated Glomerular Filt Rate > 60; Glucose 140 mg/dL (65-110); Potassium 4.6 mmol/L (3.4-5.0); Sodium 133 mmol/L (137-145)
[2022-11-05 10:20] LABS: Troponin I < 0.012 ng/mL (0.000-0.034)
== END 2022-11-05 12:21 | disposition home or self-care (01) ==
PROVIDERS: Preventive Medicine Aerospace Medicine; Emergency Provider Physician Assistant
DX: J45.901 Unspecified asthma with (acute) exacerbation (principal); J06.9 Acute upper respiratory infection, unspecified; Z20.822 Contact with and (suspected) exposure to COVID-19; K21.9 Gastro-esophageal reflux disease without esophagitis; F17.210 Nicotine dependence, cigarettes, uncomplicated; R00.1 Bradycardia, unspecified; R94.31 Abnormal electrocardiogram [ECG] [EKG]
CPT/HCPCS: 36415; 71046; 80053; 84484; 85025; 87636; 87651; 93005; 94640; 96361; 96374; 96375; 99284; J1885; J2930; J7030

== ENCOUNTER 2023-07-22 19:25 | Observation (INO) | payer OTHER, SELFPAY ==
[2023-07-22] VITALS (15 sets, daily range): BP systolic 126–152; BP diastolic 64–108; PULSE 109–132; RESP 17–33; TEMP 36.1–36.5; O2SAT 90–100; BMI 24.3
--- NOTE | ~2023-07-22 | XR_ITS ---
EXAMINATION: XR chest 1V portable Exam Date/Time: 07/22/2023 20:00 CDT HISTORY: ASTHMA EXACERBATION Comparison: 11/05/2022. RESULT: Lines, tubes, and devices: None. Lungs and pleura: Clear. Cardiomediastinal silhouette: Stable. Other: No acute osseous or upper abdominal finding. Old right clavicular midshaft fracture, healed i n deformity IMPRESSION: No acute cardiopulmonary process. Reviewed, dictated and finalized at location K.
[2023-07-22] MEDS: ALBUTEROL SULFATE NEB 2.5 MG/3 ML INH 10 MG INHALATION ×2 (19:43→21:13)
[2023-07-22] MEDS: EPINEPHrine HCL INJ 1 MG/ML AMPUL 0.3 MG IM (19:45)
[2023-07-22] MEDS: methylPREDNISolone SOD SUCC 125 MG VIAL IV PUSH (19:45)
--- NOTE | 2023-07-22 19:47 | ED.ASTHMA ---
HPI - Asthma General Chief Complaint: Asthma Stated Complaint: asthma Time Seen by Provider: 07/22/23 19:33 Source: patient Mode of arrival: ambulatory Limitations: no limitations History of Present Illness HPI Narrative: PATIENT CAME TO THE EMERGENCY ROOM WITH SHORTNESS OF BREATH, HISTORY OF ASTHMA, ALBUTEROL IS NOT WORKING, SYMPTOMS STARTED IN THE LAST COUPLE DAYS AND GRADUALLY GETTING WORSE. SATURATION ON ARRIVAL TO THE ED WAS 89%. Related Data Home Medications Medication Instructions Recorded Confirmed albuterol sulfate 90 mcg/actuation inhalation 02/28/20 07/22/21 breath activated powder inhaler Allergies Allergy/AdvReac Type Severity Reaction Status Date / Time sulfamethoxazole Allergy Other Verified 11/28/21 21:38 [From Bactrim] trimethoprim [From Bactrim] Allergy Other Verified 11/28/21 21:38 Review of Systems Review of Systems: All systems reviewed & are unremarkable except as noted in HPI and below PMFSH Past Medical History Medical History Anxiety Asthma GERD (gastroesophageal reflux disease) Surgical History Surgical History No pertinent past surgical history [place] teeth removed Social History Social History Smoking status: Current every day smoker Tobacco type: cigarettes Alcohol intake: current Substance use: current Substance use type: marijuana Gender identity (if verbalized by the patient): Female Sexual Orientation (if Verbalized by the Patient): Straight or Heterosexual Exam Narrative: GENERAL APPEARANCE: WELL-DEVELOPED, WELL-NOURISHED SKIN: NORMAL COLOR HEAD: NORMOCEPHALIC, NONTRAUMATIC EYES: CLEAR CONJUNCTIVA ENT: OROPHARYNX NORMAL, EARS NORMAL, NOSE NORMAL NECK: SUPPLE, NONTENDER CHEST AND RESPIRATORY: SIGNIFICANT DIMINUTION OF AIR ENTRY BILATERALLY, FEW FINE WHEEZING BILATERALLY, INTERCOSTAL RETRACTION, ACTIVE RESPIRATORY MUSCLES HEART: TACHYCARDIA ABDOMEN: SOFT, NONTENDER, NO ORGANOMEGALY, QUIET BOWEL SOUNDS VASCULAR: NORMAL PERIPHERAL PULSES, NORMAL CAPILLARY REFILL. 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 IS NORMAL TESTED, NO GROSS MOTOR DEFICIT Course Reevaluation(s) Reevaluation #1: IMPROVING Date: 07/22/23 Time: 22:19 Vital Signs Vital signs: Vital Signs Temperature 36.5 C 07/22/23 19:26 Pulse Rate 125 H 07/22/23 19:26 Respiratory Rate 24 H 07/22/23 19:26 Blood Pressure 152/96 H 07/22/23 19:26 Pulse Oximetry 90 07/22/23 19:26 Oxygen Delivery Room Air 07/22/23 19:26 Temperature 36.5 C 07/22/23 19:26 Pulse Rate 118 H 07/22/23 22:15 Respiratory Rate 19 07/22/23 22:15 Blood Pressure 138/81 07/22/23 22:15 Pulse Oximetry 100 07/22/23 22:15 Oxygen Delivery BiPAP 07/22/23 21:38 Oxygen Flow Rate 2 07/22/23 19:45 MDM - Asthma MDM Narrative Medical decision making narrative: PATIENT CAME TO THE ED BY PRIVATE CAR WITH SEVERE RESPIRATORY DISTRESS, HISTORY OF ASTHMA, PHYSICAL EXAMINATION SHOWED MARKED DIMINUTION OF AIR ENTRY BILATERALLY, FEW FINE WHEEZING BILATERALLY, EPINEPHRINE 0.3 MG IM, SOLU-MEDROL 125 MG IV, 10 MG OF ALBUTEROL NEBULIZER FOR 1 HOUR, TO G OF MAGNESIUM IV WITH LITTLE IMPROVEMENT. REPEATED EPINEPHRINE 0.5 MG IM AND 10 MG OF ALBUTEROL OVER 1 HOUR AND 0.5 MG OF ATROVENT TIME 1, WITH SLIGHT IMPROVEMENT, NOT SIGNIFICANT ENOUGH. BIPAP STARTED 08/03 PATIENT HAD SOME IMPROVEMENT BUT NOT SIGNIFICANT ENOUGH TO BE DISCHARGED HOME. ADMIT TO IMU DISCUSSED WITH THE HOSPITALIST. Differential Diagnos
--- NOTE | 2023-07-22 19:49 | PC.NURSE ---
Pt arrives to treatment room tachypnic, tachycardic, gasping, tripoding, with audible wheezing. States she has recently had what felt like a URI with productive white sputum. Reports using her inhaler and neb at home without relief. REsp and ERP notified and to bedside within 5 min. Orders received.
[2023-07-22 20:13] LABS: Basophils Absolute Auto 0.1 K/mm3 (0.0-0.1); Basophils Percent Auto 0.6 % (0.2-1.2); Eosinophils Absolute Auto 0.4 K/mm3 (0-0.3); Eosinophils Percent Auto 5.1 % (0-4.4); Hemoglobin 12.3 g/dL (12.0-15.0); Immature Granulocyte Absolute 0.01 K/mm3 (0.00-0.031); Immature Granulocyte Percent A 0.1 % (0-0.5); Lymphocytes Absolute Auto 2.93 K/mm3 (0.9-3.2); Lymphocytes Percent Auto 35.4 % (18.3-44.2); Mean Corpuscular HGB Conc 33.2 g/dl (32-36); Mean Corpuscular Hemoglobin 29.6 pg (26-34); Mean Corpuscular Volume 88.9 fl (80-100); Mean Platelet Volume 9.1 fl (7.4-10.4); Monocytes Absolute Auto 0.7 K/mm3 (0.1-0.6); Monocytes Percent Auto 8.3 % (2.6-8.5); Neutrophils Absolute Auto 4.2 K/mm3 (1.3-6.7); Neutrophils Percent Auto 50.5 % (45.5-73.1); Platelet Count Result 265 k/mm3 (150-375); Red Blood Count 4.16 M/mm3 (4.2-5.4); Red Cell Distribution Width 13.6 % (11.5-14.5); White Blood Count 8.3 K/mm3 (4.5-10.0)
[2023-07-22 20:26] LABS: Anion Gap 5 mmol/L (4-12); Blood Urea Nitrogen 9 mg/dL (7-17); Calcium 8.9 mg/dL (8.4-10.2); Carbon Dioxide 25 mmol/L (22-30); Chloride 109 mmol/L (98-107); Estimated Glomerular Filt Rate > 60; Glucose 113 mg/dL (65-110); Potassium 3.4 mmol/L (3.4-5.0); Sodium 139 mmol/L (137-145)
[2023-07-22] MEDS: MAGNESIUM SULF 2 GM/WATER 50ML 2 GM/50 ML BAG IVPB (20:42)
[2023-07-22] MEDS: EPINEPHrine HCL INJ 1 MG/ML AMPUL 0.5 MG IM ×2 (20:42→21:16)
[2023-07-22] MEDS: ACETAMINOPHEN 500 MG TABLET 1000 MG PO (21:16)
[2023-07-22 21:22] LABS: Alveolar/Arterial O2 Gradient 133.4 mmHg; Fractional Inspired Oxygen 36 %; HCO3 ABG 23.7 mEq/l (22.0-26.0); Oxygen Content ABG 16.6 %vol (16.0-22.0); Oxygen Saturation ABG 93.8 % (95.0-100.0); Oxyhemoglobin 92.6 % THb (90.0-100.0); PCO2 ABG 43.9 mmHg (35.0-45.0); PO2 ABG 72.4 mmHg (80.0-100.0); PO2 FiO2 Ratio Arterial Blood 2.01 %; Total Hemoglobin 12.7 g/dL (12.0-18.0)
[2023-07-22 21:23] LABS: Device NASAL CANNULA; Modified Allen's Test Pass; Site Drawn RIGHT RADIAL
--- NOTE | 2023-07-22 21:56 | PM.IMHP ---
H&P: HPI History of Present Illness Date/Time: 07/22/23 21:56 Chief Complaint: Asthma attack Narrative: 37-year-old female with a past medical history of moderate persistent asthma, tobacco use and marijuana use who presented to the ER due to respiratory distress from acute asthma exacerbation. Patient reports that she usually uses her rescue inhaler 2 to 3 times a week and has been compliant with her inhaled corticosteroids. She reports that she usually has asthma exacerbations twice a year that required hospitalization. She has required BiPAP support several times but has never required intubation. She reports that her asthma exacerbations are usually triggered by changes in the season. She she denies any lower extremity swelling, calf pain, recent travel or ill contacts. She went to [facility] a couple of days ago and received a prescription for prednisone. She went to get the prescription filled today but decided that her symptoms were so bad that she needs to come to the ER for evaluation. Oxygen saturations in the ER were in the upper 80s on room air. After nebulizer treatments patient was still having hypoxia. She also had significant work of breathing, tachypnea and retractions. She was then placed on BiPAP which improved her symptoms. She received 2 hour long albuterol nebulizers with Atrovent added to the 2nd nebulizer treatment. She also received 125 mg of IV Solu-Medrol, magnesium and for doses of IM epinephrine. She reports that she will often get pain in her back when she has an asthma exacerbation. She denies any ripping or tearing pain, chest pain or palpitations. Review of Systems Review of Systems: 12 systems were reviewed with pertinent positives and negatives per HPI. Except as documented in the HPI, all other systems were reviewed and are negative. She reports some irregular menstrual cycles ever since she had her tubal ligation last year. [facility] Past Medical History Medical History Anxiety Asthma GERD (gastroesophageal reflux disease) Surgical History Surgical History (Updated 07/23/23 @ 01:32 by Jacy Chen DO) History of section History of tubal ligation [place] teeth removed Family History Family History Grandparent Asthma Sibling Asthma Mother Diabetes mellitus Hypertension Father Hypertension Social History Social History (Updated 07/23/23 @ 01:34 by Jacy Chen DO) Social History: She lives at home with her 3 children ages 18, 8 and 1-year-old. 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 She has smoked as much as 0.5 packs of cigarettes per day since she was in her early 20s. She occasionally smokes marijuana. Every few months and only in moderation. Code status: Full code Surrogate decision maker: Nikki Crisostomo Smoking packs per day: 0.25 Smoking cigarettes per day: 5.0 Years smoked: 5 Smoking pack-years: 1.25 Smoking status: Current every day smoker Tobacco type: cigarettes Alcohol intake: current Substance use: never Substance use type: does not use Do You Feel Safe in your Home?: Yes Lack of Transportation: No Lack of Food: Sometimes True Current Housing: Decline to Answer Concerned About Future Housing: Decline to Answer Difficulty Paying Gas/Electric Bills: Decline to Answer Difficulty Paying for Meds: Decline to Answer Currently Unemployed: Decline to Answer Education: Decline to Answer Difficulty w/ Childcare or Family Care: Decline to Answer Gender identity (if verbalized by the patient): Female Sexual Orientation (if Verbalized by the Patient): Straight or Heterosexual Spiritual care concerns: No Meds Home Medications and Allergies Home Medications Medication Instructions Recorded Confirmed Type prednisone 20 mg tablet 20 mg PO BID 5 days #10 tabs 02/28/20 0
[2023-07-22] MEDS: IPRATROPIUM BR 0.02% INH SOLN 0.5 MG/2.5 ML VIAL INHALATION (21:57)
--- NOTE | 2023-07-22 22:08 | ECG_ITS ---
SEE SCANNED COPY FOR CONFIRMED REPORT MTDD
[2023-07-22 22:37] LABS: Influenza A QL RT-PCR Negative (Negative); Influenza B QL RT-PCR Negative (Negative); RSV RNA, RT-PCR Negative (Negative); SARS-CoV-2 RNA PCR Negative (Negative)
--- NOTE | 2023-07-22 23:10 | PC.NURSE ---
This patient, Loraine Arnold, was admitted to IMU Room 213-01. Patient/family oriented to hospital policies and general routines including ID bracelet, bed and alarms, visiting hours, pain management, procedures, bathroom and other care routines, personal items, smoking policy, room service/diet, and visiting hours. Information on how to activate the Rapid Response Team has been discussed. Patient/Family are encouraged to report perceived risks to care and to ask questions if they do not understand what they are told or what they should do.
[2023-07-22] MEDS: methylPREDNISolone SOD SUCC 125 MG VIAL 60 MG IV PUSH (23:33)
[2023-07-23] VITALS (25 sets, daily range): BP systolic 103–142; BP diastolic 53–74; PULSE 70–117; RESP 14–22; TEMP 36.5–36.9; O2SAT 96–98
[2023-07-23] MEDS: IPRATROPIUM 0.5 MG/ALBUTEROL SULFATE 2.5 MG AMPUL.NEB 3 ML INHALATION ×6 (00:48→20:26)
[2023-07-23] MEDS: ACETAMINOPHEN 325 MG TABLET 650 MG PO ×4 (03:34→20:22)
[2023-07-23 04:55] LABS: Hematocrit 37.8 % (37.0-47.0); Hemoglobin 12.2 g/dL (12.0-15.0); Mean Corpuscular HGB Conc 32.3 g/dl (32-36); Mean Corpuscular Hemoglobin 29.3 pg (26-34); Mean Corpuscular Volume 90.6 fl (80-100); Platelet Count Result 272 k/mm3 (150-375); Red Blood Count 4.17 M/mm3 (4.2-5.4); Red Cell Distribution Width 13.8 % (11.5-14.5); White Blood Count 8.9 K/mm3 (4.5-10.0)
[2023-07-23 05:11] LABS: Anion Gap 12 mmol/L (4-12); Blood Urea Nitrogen 9 mg/dL (7-17); Carbon Dioxide 17 mmol/L (22-30); Chloride 107 mmol/L (98-107); Estimated CRCL calculation 93 ml/min; Estimated Glomerular Filt Rate > 60; Glucose 194 mg/dL (65-110); Potassium 3.9 mmol/L (3.4-5.0); Sodium 136 mmol/L (137-145)
[2023-07-23] MEDS: methylPREDNISolone SOD SUCC 125 MG VIAL 60 MG IV PUSH ×3 (06:22→22:32)
[2023-07-23] MEDS: NICOTINE (*PBKC) 2 MG GUM PO ×2 (06:22→14:40)
[2023-07-23] MEDS: ENOXAPARIN 40 MG/0.4 ML SYRINGE SUB-Q (08:16)
[2023-07-23] MEDS: FLUTICASONE/SALMETEROL 45-21 MCG INHALER 1 PUFF 2 PUFF INHALATION ×2 (08:50→20:27)
--- NOTE | 2023-07-23 11:45 | PM.IMPN ---
Progress Note: A&P Assessment and Plan (1) Acute hypoxic respiratory failure: Code(s): J96.01 - Acute respiratory failure with hypoxia Status: Acute Assessment and Plan: Patient presents with acute respiratory failure. She was noted to have retractions, tachypnea tachycardia. For SpO2 was in the 80s. She was started on supplemental oxygen. ABG 7.35/44/72 on 4 L. Patient ultimately was placed on BiPAP. She received 2 hour long albuterol nebulizer treatments with Atrovent. She was started on Solu-Medrol IV. She was given magnesium and IM epinephrine x3. She was able to be weaned off the BiPAP overnight. She is on room air currently. Still wheezing but feels much better. Continue to follow closely. (2) Asthma with status asthmaticus: Qualifiers: Asthma persistence: persistent Asthma severity: moderate Qualified Code(s): J45.42 - Moderate persistent asthma with status asthmaticus Code(s): J45.902 - Unspecified asthma with status asthmaticus Status: Acute Assessment and Plan: As above. Patient is not on Advair at home she states. She only uses the albuterol rescue inhaler. Suspected triggers were change in season, ongoing tobacco use and ongoing marijuana use. She was encouraged to follow-up with a primary care doctor to get a referral to see a instructional writer to have her asthma better treated. Advair has been added here which will continue Continue steroids. Add sliding scale protocol (3) Nonsustained ventricular tachycardia: Code(s): I47.29 - Other ventricular tachycardia Status: Acute Assessment and Plan: Patient had 5 beat run of nonsustained V-tach today. EKG showed normal sinus rhythm with nonspecific T-wave changes. She does have a metabolic acidosis noted. Potassium 3.9. Check magnesium. Monitor on telemetry. (4) Metabolic acidosis: Code(s): E87.20 - Acidosis, unspecified Status: Acute Assessment and Plan: Patient developed a metabolic non gap acidosis. Probably related to above. Will continue to follow. (5) Tobacco abuse disorder: Code(s): Z72.0 - Tobacco use Status: Acute Assessment and Plan: Patient was educated about the benefits of smoking cessation (6) Marijuana use: Code(s): F12.90 - Cannabis use, unspecified, uncomplicated Status: Acute Assessment and Plan: Patient was educated about the benefits of stopping marijuana use. She was also instructed that if she wants to use marijuana, then she should use another route of ingestion such as oral intake instead of smoking marijuana. She voiced understanding of this. Plan DVT prophylax -Lovenox Code status -full Subjective Date/time seen: 07/23/23 11:45 Interval history: 37yo female with anxiety, asthma, tobacco abuse and marijuana abuse here for respiratory distress from acute asthma exacerbation. Shortness of breath is better. She is having crampy abdominal pain. Still wheezing. She is up walking to the bathroom but does have dyspnea on exertion. She does state that she was taking prednisone from the ER prior to admission the past 2-3 days Exam Narrative: AF 98.4 122/69 96 14 96% ra Gen - NARD Chest - diffuse expiratory wheezes bilaterally CV - RRR S1/S2. Telemetry showing 5 beat run nonsustained V-tach otherwise no significant dysrhythmias Abd - Soft, NT/ND, Positive BS Ext - No pedal edema Psych - Nml mood and affect Skin - Warm and dry Objective Data Vital Signs Vital Signs: Vital Signs - 24 hr 07/22/23 19:26 07/22/23 19:45 07/22/23 19:45 Temperature 97.7 F Pulse Rate 125 H 125 H 120 H Respiratory Rate 24 H 30 H Blood Pressure 152/96 H Pulse Oximetry 90 Oxygen Delivery Room Air Oxygen Flow Rate 07/22/23 19:45 07/22/23 20:47 07/22/23 21:16 Temperature Pulse Rate 132 H 126 H Respiratory Rate 33 H 25 H Blood Pressure Pulse Oximetry 94 O
--- NOTE | 2023-07-23 12:34 | PCCCNOTE ---
On 07/23/23, the student, [Mikala Rodriguez ], provided care and completed [facility] documentation on this patient. I have reviewed the student's documentation and agree with the findings.
[2023-07-23] MEDS: LORATADINE 10 MG TABLET PO (18:10)
[2023-07-23 20:07] LABS: Glucose Point of Care 211 mg/dl (65-105)
[2023-07-23] MEDS: KETOROLAC 30 MG/ML VIAL (*BKC) IV PUSH (22:44)
[2023-07-24] VITALS (16 sets, daily range): BP systolic 109–120; BP diastolic 58–64; PULSE 72–99; RESP 17–18; TEMP 35.9–36.4; O2SAT 98–99
[2023-07-24] MEDS: IPRATROPIUM 0.5 MG/ALBUTEROL SULFATE 2.5 MG AMPUL.NEB 3 ML INHALATION ×4 (00:22→12:58)
[2023-07-24 05:01] LABS: Anion Gap 8 mmol/L (4-12); Blood Urea Nitrogen 10 mg/dL (7-17); Calcium 9.2 mg/dL (8.4-10.2); Carbon Dioxide 21 mmol/L (22-30); Chloride 105 mmol/L (98-107); Estimated CRCL calculation 93 ml/min; Estimated Glomerular Filt Rate > 60; Glucose 223 mg/dL (65-110); Potassium 4.2 mmol/L (3.4-5.0); Sodium 134 mmol/L (137-145)
[2023-07-24 05:07] LABS: Hemoglobin A1C 5.6 % (<5.7)
[2023-07-24 05:25] LABS: SPREG INTERNAL CONTROL Positive; Serum Qual hCG Negative
[2023-07-24] MEDS: methylPREDNISolone SOD SUCC 125 MG VIAL 60 MG IV PUSH (05:44)
[2023-07-24 07:36] LABS: Glucose Point of Care 212 mg/dl (65-105)
[2023-07-24] MEDS: LORATADINE 10 MG TABLET PO (08:15)
[2023-07-24] MEDS: INSULIN ASPART (*BKC) 100 UNITS/ML SUB-Q (08:15)
[2023-07-24] MEDS: predniSONE 20 MG TABLET 40 MG PO (08:17)
[2023-07-24] MEDS: FLUTICASONE/SALMETEROL 45-21 MCG INHALER 1 PUFF 2 PUFF INHALATION (08:25)
[2023-07-24 11:07] LABS: Glucose Point of Care 179 mg/dl (65-105)
--- NOTE | 2023-07-24 16:13 | PM.DS ---
DS: Admitting Diagnosis Discharge Date 07/24/23 Admitting Diagnosis Shortnes of breath DS: Discharge Diagnosis Discharge Diagnosis (1) Acute hypoxic respiratory failure: Code(s): J96.01 - Acute respiratory failure with hypoxia Status: Acute (2) Asthma with status asthmaticus: Qualifiers: Asthma severity: moderate Asthma persistence: persistent Qualified Code(s): J45.42 - Moderate persistent asthma with status asthmaticus Code(s): J45.902 - Unspecified asthma with status asthmaticus Status: Acute (3) Nonsustained ventricular tachycardia: Code(s): I47.29 - Other ventricular tachycardia Status: Acute (4) Metabolic acidosis: Code(s): E87.20 - Acidosis, unspecified Status: Acute (5) Tobacco abuse disorder: Code(s): Z72.0 - Tobacco use Status: Acute (6) Marijuana use: Code(s): F12.90 - Cannabis use, unspecified, uncomplicated Status: Acute DS: Summary Hospital Course Reason for hospitalization: 37yo female with anxiety, asthma, tobacco abuse and marijuana abuse here for respiratory distress from acute asthma exacerbation. Please see H&P for details Hospital Course: Patient presents with acute respiratory failure.? She was noted to have retractions, tachypnea and tachycardia. Hrr SpO2 was in the 80s.? She was started on supplemental oxygen.? ABG 7.35/44/72 on 4 L. Patient ultimately was placed on BiPAP.? She received 2 hour long albuterol nebulizer treatments with Atrovent.? She was started on Solu-Medrol IV.? She was given magnesium and IM epinephrine x3.?She was tarted on BiPAP but able to be weaned off the BiPAP overnight.? She was ultimately weaned to room air. Patient is not on Advair at home.? She only uses the albuterol rescue inhaler. Suspected triggers were change in season, ongoing tobacco use and ongoing marijuana use. She was encouraged to follow-up with a primary care doctor to get a referral to see a sample hand to have her asthma better treated. Advair was added here. Patient was educated about the benefits of smoking cessation. Patient was educated about the benefits of stopping marijuana use.? She was also instructed that if she wants to use marijuana, then she should use another route of ingestion such as oral intake instead of smoking marijuana.? She voiced understanding of this. Patient had 5 beat run of nonsustained V-tach once. EKG showed normal sinus rhythm with nonspecific T-wave changes. She does have a metabolic acidosis noted that improved. No recurrence. She was weaned to oral steroids. SHe overall did well and was able to be discharged home on 05/25/23. Status at Discharge Cognitive/behavioral status at discharge: stable Time Spent with Patient Time attestation: Total time spent providing and/or coordinating discharge services: 36 minutes Time spent: Greater than 30 minutes Exam Narrative: AF 96.6 120/62 73 18 99% ra Gen - NARD Chest - scattered expiratory wheezes, nml RR CV - RRR S1/S2. Telemetry showing no significant dysrhythmias Abd - Soft, NT/ND, Positive BS Ext - No pedal edema Psych - Nml mood and affect Skin - Warm and dry DS: Data Data Completed and Pending Labs on day of discharge: Labs from last 24 hours 07/24/23 07/24/23 07/24/23 10:58 07:33 04:17 Sodium 134 L Potassium 4.2 Chloride 105 Carbon Dioxide 21 L Anion Gap 8 BUN 10 Creatinine 0.60 L Estim Creat Clear Calc 93 Estimated GFR > 60 Glucose 223 H POC Capillary Glucose 179 H 212 H Hemoglobin A1c 5.6 Calcium 9.2 Magnesium 2.0 Serum HCG, Qual Negative 07/23/23 20:00 Sodium Potassium Chloride Carbon Dioxide Anion Gap BUN Creatinine Estim Creat Clear Calc Estimated GFR Glucose POC Capillary Glucose 211 H Hemoglobin A1c Calcium Magnesium Serum HCG, Qual Discharge Plan Discharge Attending physician on discharge: Pastor Mixon
[2023-07-24 16:25] LABS: Glucose Point of Care 178 mg/dl (65-105)
[2023-07-24] MEDS: ACETAMINOPHEN 325 MG TABLET 650 MG PO (16:48)
== END 2023-07-24 17:15 | disposition home or self-care (01) ==
LOC: ANHED 22:28 → ANHIMU 22:57
PROVIDERS: Admitting Provider Internal Medicine; Emergency Provider Emergency Medicine; Visit Provider Internal Medicine
DX: J96.01 Acute respiratory failure with hypoxia (principal); J45.42 Moderate persistent asthma with status asthmaticus; I47.29 Other ventricular tachycardia; E87.20 Acidosis, unspecified; Z79.51 Long term (current) use of inhaled steroids; F17.210 Nicotine dependence, cigarettes, uncomplicated; F12.90 Cannabis use, unspecified, uncomplicated; Z20.822 Contact with and (suspected) exposure to COVID-19
CPT/HCPCS: 36415; 36600; 71045; 80048; 82805; 82948; 83036; 83735; 84703; 85025; 85027; 87637; 93005; 94640; 96365; 96366; 96372; 96374; 96375; 96376; 99285; A9270; G0378; G0379; J0171; J1650; J1815; J1885; J2919; J3475; J7512

== ENCOUNTER 2023-12-14 14:22 | Outpatient (CLI) | payer OTHER, SELFPAY ==
[2023-12-14 18:43] LABS: Basophils Percent Auto 0.4 % (0.2-1.2); Eosinophils Absolute Auto 0.3 K/mm3 (0-0.3); Eosinophils Percent Auto 4.8 % (0-4.4); Hematocrit 36.5 % (37.0-47.0); Hemoglobin 12.6 g/dL (12.0-15.0); Immature Granulocyte Absolute 0.01 K/mm3 (0.00-0.031); Immature Granulocyte Percent A 0.2 % (0-0.5); Lymphocytes Percent Auto 35.5 % (18.3-44.2); Mean Corpuscular HGB Conc 34.5 g/dl (32-36); Mean Corpuscular Hemoglobin 31.1 pg (26-34); Mean Corpuscular Volume 90.1 fl (80-100); Mean Platelet Volume 9.4 fl (7.4-10.4); Monocytes Absolute Auto 0.4 K/mm3 (0.1-0.6); Monocytes Percent Auto 6.7 % (2.6-8.5); Neutrophils Percent Auto 52.4 % (45.5-73.1); Platelet Count Result 322 k/mm3 (150-375); Red Blood Count 4.05 M/mm3 (4.2-5.4); Red Cell Distribution Width 12.6 % (11.5-14.5); White Blood Count 5.6 K/mm3 (4.5-10.0)
[2023-12-14 19:25] LABS: Rheumatoid Factor < 12.0 IU/ML (<12)
[2023-12-14 20:35] LABS: Folic Acid > 20.0 ng/mL (2.76->20)
[2023-12-14 20:40] LABS: Iron 114 ug/dL (37-170)
[2023-12-14 20:50] LABS: Percent Iron Saturation 34 % (20-50)
[2023-12-14 22:15] LABS: Alanine Aminotransferase 15 U/L (6-35); Albumin Level 4.1 g/dL (3.5-5.1); Alkaline Phosphatase 68 U/L (38-126); Anion Gap 11 mmol/L (4-12); Aspartate Amino Transferase 33 U/L (14-36); Bilirubin,Total 0.5 mg/dL (0.2-1.3); Blood Urea Nitrogen 11 mg/dL (7-17); Carbon Dioxide 20 mmol/L (22-30); Chloride 107 mmol/L (98-107); Estimated Glomerular Filt Rate > 60; Glucose 97 mg/dL (65-110); Potassium 3.4 mmol/L (3.4-5.0); Sodium 138 mmol/L (137-145)
[2023-12-14 22:39] LABS: Thyroid Stimulating Hormone 0.385 uIU/mL (0.465-4.680)
== END 2023-12-14 14:23 | disposition home or self-care (01) ==
LOC: ANHGOSHLAB 14:23
PROVIDERS: PCP Nurse Practitioner; Visit Provider Nurse Practitioner
DX: D64.9 Anemia, unspecified (principal); J45.909 Unspecified asthma, uncomplicated; R20.0 Anesthesia of skin; R20.2 Paresthesia of skin; R53.83 Other fatigue
CPT/HCPCS: 36415; 80053; 82607; 82728; 82746; 83540; 83550; 84443; 85025; 86430

== ENCOUNTER 2024-01-11 12:32 | Outpatient (CLI) | payer OTHER, SELFPAY ==
[2024-01-11 20:25] LABS: Free T4 Free Thyroxine 0.97 ng/mL (0.78-2.19)
[2024-01-14 02:28] LABS: Triiodothyronine T3 Free 3.6 pg/mL (2.3-4.2)
== END 2024-01-11 12:33 | disposition home or self-care (01) ==
LOC: ANHGOSHLAB 12:33
PROVIDERS: PCP Nurse Practitioner; Visit Provider Nurse Practitioner
DX: R79.89 Other specified abnormal findings of blood chemistry (principal)
CPT/HCPCS: 36415; 84439; 84443; 84481

== ENCOUNTER 2024-05-29 14:03 | Emergency (ER) | payer OTHER, SELFPAY ==
[2024-05-29] VITALS (10 sets, daily range): BP systolic 135–136; BP diastolic 76–82; PULSE 57–69; RESP 16–78; TEMP 36.2; O2SAT 96–100
--- NOTE | ~2024-05-29 | US_ITS ---
EXAMINATION: US right upper quadrant DATE: 05/29/2024 15:07 INDICATION: Abdominal pain. TECHNIQUE: Multiple grayscale and Doppler ultrasound images of the abdomen were obtained. COMPARISON: None FINDINGS: The visualized portions of the head, body, and tail of the pancreas are normal. The liver i s normal without focal lesion. There is normal flow in main portal vein. The gallbladder is normal in size. No gallstones or gallbladder wall thickening. There is no sonographic Snyder's sign. The commo n duct is normal and measures 3 mm. IMPRESSION: 1. Normal right upper quadrant ultrasound. Reviewed, dictated and finalized at location A. HT TESTER
[2024-05-29 14:19] LABS: Basophils Percent Auto 0.2 % (0.2-1.2); Eosinophils Absolute Auto 0.1 K/mm3 (0-0.3); Eosinophils Percent Auto 2.2 % (0-4.4); Hematocrit 35.8 % (37.0-47.0); Hemoglobin 11.7 g/dL (12.0-15.0); Immature Granulocyte Absolute 0.01 K/mm3 (0.00-0.031); Immature Granulocyte Percent A 0.2 % (0-0.5); Lymphocytes Absolute Auto 2.27 K/mm3 (0.9-3.2); Lymphocytes Percent Auto 44.9 % (18.3-44.2); Mean Corpuscular HGB Conc 32.7 g/dl (32-36); Mean Corpuscular Hemoglobin 29.5 pg (26-34); Mean Corpuscular Volume 90.2 fl (80-100); Monocytes Absolute Auto 0.5 K/mm3 (0.1-0.6); Monocytes Percent Auto 9.7 % (2.6-8.5); Neutrophils Absolute Auto 2.2 K/mm3 (1.3-6.7); Neutrophils Percent Auto 42.8 % (45.5-73.1); Platelet Count Result 227 k/mm3 (150-375); Red Blood Count 3.97 M/mm3 (4.2-5.4); Red Cell Distribution Width 13.4 % (11.5-14.5); White Blood Count 5.1 K/mm3 (4.5-10.0)
[2024-05-29 14:30] LABS: Alanine Aminotransferase 18 U/L (6-35); Albumin Level 4.2 g/dL (3.5-5.1); Alkaline Phosphatase 75 U/L (38-126); Anion Gap 7 mmol/L (4-12); Aspartate Amino Transferase 23 U/L (14-36); Bilirubin,Total 0.3 mg/dL (0.2-1.3); Blood Urea Nitrogen 9 mg/dL (7-17); Calcium 9.1 mg/dL (8.4-10.2); Carbon Dioxide 26 mmol/L (22-30); Chloride 104 mmol/L (98-107); Estimated CRCL calculation 99 ml/min; Estimated Glomerular Filt Rate > 60; Glucose 94 mg/dL (65-110); Lipase 52 U/L (23-300); Potassium 3.8 mmol/L (3.4-5.0); Sodium 137 mmol/L (137-145)
[2024-05-29 14:43] LABS: BEDSIDEPREGUCG Negative (Negative)
[2024-05-29 14:46] LABS: Add Urine Microscopic? YES; Appearance Urine Cloudy (Clear); Bacteria Urine None Seen /hpf; Bilirubin Urine Negative (Negative); Blood Urine Negative (Negative); Color Urine Yellow (Yellow); Glucose Urine UA Negative (Negative); Ketones Urine Negative (Negative); Leukocyte Esterase Ur Negative LEU/UL (Negative); Nitrate Urine Negative (Negative); Non Pathogenic Casts 0-2; Protein Urine Negative (Negative); Specific Grav Ur 1.022 (1.001-1.035); Squamous Epithelial Cell Urine Many /hpf (Few); WBC Urine 0-5 /hpf (0-3); pH Urine 6.5 (5.0-9.0)
[2024-05-29] MEDS: IPRATROPIUM 0.5 MG/ALBUTEROL SULFATE 2.5 MG AMPUL.NEB 3 ML INHALATION (15:01)
--- NOTE | 2024-05-29 15:05 | PCRCNOTE ---
Stat neb treatment late due to RT waiting on patient to return from ultrasound. Neb treatment started at 1503.
[2024-05-29] MEDS: ONDANSETRON INJ 4 MG/2 ML VIAL IV PUSH (15:23)
[2024-05-29] MEDS: MORPHINE SULFATE (*CRX) 4 MG/ML INJ IV PUSH (15:23)
[2024-05-29] MEDS: SODIUM CHLORIDE 0.9% IV 1,000 ML 999 ML IV CONT (15:23)
--- NOTE | 2024-05-29 15:38 | ED_ITS ---
HPI - Abdominal Pain General Chief Complaint: Abdominal Pain Stated Complaint: Pain in right upper abdomen x 3 days Time Seen by Provider: 05/29/24 14:28 History of Present Illness HPI narrative: Patient is a 38-year-old female who presents ER with right upper quadrant abdominal pain. Ongoing for 3 days. Drinks occasional goes into her back. It is not associated with eating or drinking. She has felt some gas. No vomiting but has had mild nausea. No fevers or chills or sweats. No urinary frequency urgency or dysuria. Had recently been on antibiotics. Related Data Allergies Allergy/AdvReac Type Severity Reaction Status Date / Time sulfamethoxazole (From Allergy Unknown Other Verified 05/29/24 14:05 Bactrim) trimethoprim (From Bactrim) Allergy Unknown Other Verified 05/29/24 14:05 Review of Systems 2 Review of Systems: All systems reviewed & are unremarkable except as noted in HPI and below Constitutional: Constitutional: Reports no additional constitutional complaints ENT: Reports system reviewed and no additional complaints, except as documented Cardiovascular: Cardiovascular: Reports no additional cardiovascular complaints Respiratory: Respiratory: Reports no additional respiratory complaints Gastrointestinal: Gastrointestinal: Reports no additional gastrointestinal complaints [facility] Past Medical History Medical History Anxiety Asthma GERD (gastroesophageal reflux disease) Surgical History Surgical History History of section History of tubal ligation [place] teeth removed Family History Family History Grandparent Asthma Sibling Asthma Mother Diabetes mellitus Hypertension Father Hypertension Social History Social History Social History: She lives at home with her 3 children ages 18, 8 and 1-year-old. 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 She has smoked as much as 0.5 packs of cigarettes per day since she was in her early 20s. She occasionally smokes marijuana. Every few months and only in moderation. Code status: Full code Surrogate decision maker: Nikki Kranthi Smoking packs per day: 0.25 Smoking cigarettes per day: 5.0 Years smoked: 5 Smoking pack-years: 1.25 Smoking status: Current every day smoker Tobacco type: cigarettes Alcohol intake: current Substance use: never Substance use type: does not use Do You Feel Safe in your Home?: Yes Lack of Transportation: No Lack of Food: Sometimes True Current Housing: Decline to Answer Concerned About Future Housing: Decline to Answer Difficulty Paying Gas/Electric Bills: Decline to Answer Difficulty Paying for Meds: Decline to Answer Currently Unemployed: Decline to Answer Education: Decline to Answer Difficulty w/ Childcare or Family Care: Decline to Answer Gender identity (if verbalized by the patient): Female Sexual Orientation (if Verbalized by the Patient): Straight or Heterosexual Spiritual care concerns: No Exam 2 Narrative: GENERAL: Well-appearing, well-nourished, and in no acute distress. HEAD: Normocephalic, atraumatic. ENT: Mucous membranes moist. CHEST: Mild diffuse wheezing. No respiratory distress. HEART: Regular rate and rhythm. Normal peripheral pulses. ABDOMEN: Soft, tender palpation right upper quadrant without guarding, nondistended, normal active bowel sounds. No CVA tenderness. EXTREMITIES: Normal range of motion. No edema. SKIN: Warm, dry, no rash. NEURO: Alert and oriented x3. PSYCH: Normal mood and affect. Course Course Emergency Course: Pain improved with morphine. Received Zofran for possible nausea associated with medication. She had mild wheezing that improved with neb. Vital Signs Vital signs: Vital Signs Temperature 97.2 F L 05/29/24 14:06 Pulse Rate 69 05/29/24 14:06 Respiratory Rate 16 05/29/24 14:06 Blood Pressure 135/76 05/29/24 14:06 Pulse Oximetry 100 05/29/24 14:06 Oxygen Delivery Room Air 05/29/24 14:06 Temperature 97.2 F L 05/29/24 14:06 Pulse Rate 64 05/29/24 15:23 Respiratory Rate 18 05/29/24 15:23 Blood Pressure 135/76 05/29/24 14:06 Pulse Oximetry 98 05/29/24 15:23 Oxygen Delivery Room Air 05/29/24 14:06 MDM - Abdominal Pain Lab Data 05/29/24 14:13 05/29/24 14:13 Labs: Lab Results 05/29/24 05/29/24 05/29/24 Range/Units 14:13 14:34 14:42 WBC 5.1 (4.5-10.0) K/mm3 RBC 3.97 L (4.2-5.4) M/mm3 Hgb 11.7 L (12.0-15.0) g/dL Hct 35.8 L (37.0-47.0) % MCV 90.2 (80-100) fl MCH 29.5 (26-34) pg MCHC 32.7 (32-36) g/dl RDW 13.4 (11.5-14.5) % Plt Count 227 (150-375) k/mm3 MPV 9.0 (7.4-10.4) fl Immature Gran % (Auto) 0.2 (0-0.5) % Neut % (Auto) 42.8 L (45.5-73.1) % Lymph % (Auto) 44.9 H (18.3-44.2) % [place] % (Auto) 9.7 H (2.6-8.5) % Eos % (Auto) 2.2 (0-4.4) % Baso % (Auto) 0.2 (0.2-1.2) % Lymph # (Auto) 2.27 (0.9-3.2) K/mm3 [place] # (Auto) 0.5 (0.1-0.6) K/mm3 Eos # (Auto) 0.1 (0-0.3) K/mm3 Baso # (Auto) 0.0 (0.0-0.1) K/mm3 Abs Immat Gran (auto) 0.01 (0.00-0.031) K/mm3 Absolute Neuts (auto) 2.2 (1.3-6.7) K/mm3 Absolute Nucleated RBC 0.000 (0.0-0.012) K/mm3 Nucleated RBC % 0.0 (0.0-0.2) % Sodium 137 (137-145) mmol/L Potassium 3.8 (3.4-5.0) mmol/L Chloride 104 (98-107) mmol/L Carbon Dioxide 26 (22-30) mmol/L Anion Gap 7 (4-12) mmol/L BUN 9 (7-17) mg/dL Creatinine 0.61 L (0.7-1.0) mg/dL Estim Creat Clear Calc 99 ml/min Estimated GFR > 60 (59 - ) Glucose 94 (65-110) mg/dL Calcium 9.1 (8.4-10.2) mg/dL Total Bilirubin 0.3 (0.2-1.3) mg/dL AST 23 (14-36) U/L ALT 18 (6-35) U/L Alkaline Phosphatase 75 (38-126) U/L Total Protein 7.0 (6.3-8.2) g/dL Albumin 4.2 (3.5-5.1) g/dL Lipase 52 (23-300) U/L Urine Color Yellow (Yellow) Urine Appearance Cloudy H (Clear) Urine pH 6.5 (5.0-9.0) Ur Specific [place] 1.022 (1.001-1.035) Urine Protein Negative (Negative) mg/dL Urine Glucose (UA) Negative (Negative) mg/dL Urine Ketones Negative (Negative) mg/dL Ur Blood (Man) Negative (Negative) Urine Nitrate Negative (Negative) Urine Bilirubin Negative (Negative) Urine Urobilinogen 1.0 (<2.0) mg/dL Leukocyte Esterase Rfl Negative (Negative) SAKSHI/UL Urine RBC 3-5 H (0-2) /hpf Urine WBC 0-5 (0-3) /hpf Ur Squamous Epith Cells Many H (Few) /hpf Urine Bacteria None seen /hpf Urine Casts 0-2 POC Urine HCG, Qual Negative (Negative) Imaging Data Radiologist's impression: ITS Impressions Upper Quadrant Ultrasound 05/29/24 15:09 IMPRESSION: 1. Normal right upper quadrant ultrasound. Discharge Plan Discharge Clinical Impression: Right upper quadrant abdominal pain Patient Disposition: Home, Self-Care Condition: Stable Instructions: Abdominal Pain (ED) Additional Instructions: Return to the emergency department if you develop severe abdominal pain, severe nausea and vomiting to the point where you are unable to keep down fluids, if you develop chest pain or difficulty breathing, blood in your stool, dizziness or fainting, or if you develop any other new or concerning symptoms as these could be signs of more serious medical illness. Try to stay well hydrated. Patient Language: Italian Prescriptions: New pantoprazole 40 mg tablet,delayed release (DR/EC) 40 mg PO HS 28 Days Qty: 28 0RF ondansetron 4 mg tablet,disintegrating 4 mg PO Q6H PRN (Reason: nausea and vomiting) Qty: 10 0RF simethicone 125 mg capsule 125 mg PO QID Qty: 20 0RF Rx Instructions: administer after meals and at bedtime No Action albuterol sulfate [Ventolin HFA] 90 mcg/actuation HFA aerosol inhaler 2 inh inhalation Q4H PRN (Reason: shortness of breath or wheezing) Qty: 8.5 1RF Rx Instructions: DO NOT SUBSTITUTE. Follow-up/Referrals: Rogelio Sal DO [Primary Care Provider] - 1 Week
--- OUTSIDE RECORDS SUMMARY | 2024-05-29 15:42 | XMS_ITS | CONTINUITY OF CARE DOCUMENT ---
Author Name armando roberts Address Unknown Organization [facility] Address [address] [place] [id number] Phone [phone] Care Team Providers Care Teacher Emotionally Impaired Name Role Phone Prasad Vargas MD Unavailable Prasad Vargas MD Unavailable ANASTASIYA HERNANDEZ MD Unavailable INSURANCE PROVIDERS Payer name Policy type / Coverage type Randee red alliance party ID [place] (2) Medicaid [id number]
--- OUTSIDE RECORDS SUMMARY | 2024-05-29 15:42 | XMS_ITS | Clinical Summary ---
Author Organization [facility] Address [address] [place] [id number] Care Team Providers Care Rod Hanger Name Role Phone None, Provider MD Primary Care Provider Unavaila ble Allergies No known active allergies Medications buprenorphine (SUBUTEX) [address] 16 mg under the tongue daily. 04/07/2022 Active docusate sodium (COLACE) 100 MG capsule Take 100 mg by mouth 2 (two) times a day. 03/23/2022 Active FEROSUL 325 (65 Fe) MG tablet Take 325 mg by mouth daily with breakfast. 03/23/2022 Active ibuprofen (MOTRIN) 600 MG tablet Take 600 mg by mouth 2 (two) times daily as needed for Pain or Fever. 03/23/2022 Active VITAMIN WITH IRON 27-0.8 MG tablet Take 1 tablet by mouth daily. 04/03/2022 Active Active Problems Problem Noted Date Diagnosed Date Asthma exacerbation ([facility]) 04/10/2022 Family History Medical History Relation Comments Asthma Brother Asthma Maternal Grandmother Asthma Sister Relation Status Comments Brother Maternal Grandmother Sister Social History Tobacco Use Types Packs/Day Years Used Date Smoking Tobacco: Never Smokeless Tobacco: Never Tobacco Cessation:Counseling Given: Not Answered Alcohol Use Standard Drinks/Week Comments Not Currently 0 (1 standard drink = 0.6 oz pur e alcohol) Comments No Sex and Gender Information Value Date Recorded Sex Assigned at Not on file Legal Sex Female 7:36 PM SOLAR INST[employer] Gender Identity Not on file Sexual Orientation Not on file Last Filed Vital Signs Vital Sign Reading Time Taken Comments Blood Pressure 134/80 04/12/2022 11:00 AM SOLAR INSTALLER Pulse 97 04/12/2022 11:00 AM SOLAR INSTALLER Temperature 36.8 C (98.2 F) 04/12/2022 11:00 AM SOLAR INSTALLER Respiratory Rate 18 04/12/2022 11:0 0 AM SOLAR INSTALLER Oxygen Saturation 98% 04/12/2022 11: 00 AM SOLAR INSTALLER Inhaled Oxygen Concentration - - Weight 71.2 kg (156 lb 15.5 oz) 04/12/2022 4:00 AM SOLAR INSTALLER Height 167.6 cm (5' 6 ) 04/10/2022 7:44 PM SOLAR INSTALLER Body Mass Index 25.34 04/10/2022 7:44 PM SOLAR INSTALLER Plan of Treatment Health Maintenance Due Date Last Done Comments Annual Physical 09/08/1987 Hepatitis C 2002 Hepatitis B Vaccines (1 of 3 - 19+ 3-dose series) 09/08/2003 Pneumococcal Vaccine: Pediatrics (0 to 5 Years) and At-Risk Patients (6 to 64 Years) (2 of 2 - PCV) 08/28/2016 08/29/2015 COVID-19 Vaccine (2023-2 5 season) 2023 Influenza Adult (#1) 2023 01/19/2022, 05/13/2021 Cervical Cancer Screening Pa p Smear (Age 30 to 64) Every 3 Years 03/08/2025 03/08/2022 Cervical Cancer Screening Pa p with HPV Testing (Age 30 to 64) Every 5 Years 03/08/2027 03/08/2022 Cervical Cancer Screening wi th HPV 03/08/2027 DTaP, Tdap and Td Vaccines ( 3 - Td or Tdap) 02/24/2032 02/23/2022, 05/17/2015 HPV Vaccines Aged Out No longer eligi ble based on patient's age to complete this topic Meningococcal B Vaccine Aged Out No l onger eligible based on patient's age to complete this topic Meningococcal Vaccine Aged Out No chely anthony eligible based on patient's age to complete this topic RSV Immunizations Under 20 Months Aged Out No longer eligible b ased on patient's age to complete this topic Goals Goal Patient Goal Type Associated Problems Recent Progress Patient-Stated? Author Health - patient able to perform ADLs independently Lifestyle Khris Harding, RN Insurance 2029 Franny Morales [place] [id number] [facility] C/O PROVIDER SERVICES CINDY ZAMBRANO [id number] Advance Directives * Full Code (Latest Code Status on File) Date Activated Date Inactivated Comments 04/10/2022 10:29 PM 04/12/2022 2:07 PM Care Teams Rod Hanger Relationship Specialty Start Date End Date None, Provider, PCP - General UNKNOWN PHYSICIAN SPECIALTY 04/10/22
--- OUTSIDE RECORDS SUMMARY | 2024-05-29 15:42 | XMS_ITS | Clinical Summary ---
Author Organization [facility] Address [address] [place] [address] Care Team Providers Care Sort Line Name Role Phone No, Physician Primary Care Provider Allergies No known active allergies Medications mometasone-form oterol (DULERA 100) 100-5 mcg/actuation inhalerIndicati ons:Maintenance Therapy for Asthma Inhale 2 puffs 2 (two) times a day Rinse mouth with water after use. Do not swallow. Active acetaminophen 500 mg capsuleIndicati ons:Pain Take 2 capsules (1,000 mg total) by mouth every 6 (six) hours as needed for pain 60 tablet 2 Active fluticasone (VERAMYST) 27.5 mcg/actuation nasal sprayIndication s:Allergic Rhinitis Administer 2 sprays into each nostril daily before breakfast Active aspirin 81 mg enteric coated tabletIndicatio ns:prevention of thrombosis Take 1 tablet (81 mg total) by mouth relay assembler before breakfast 3 Active albuterol HFA (PROVENTIL HFA,VENTOLIN HFA,PROAIR HFA) 90 mcg/actuation inhalerIndicati ons:Acute Asthma Attack Inhale 2 puffs every 6 (six) hours as needed for wheezing 1 each 3 Active albuterol 0.63 mg/3 mL nebulizer solutionIndicat ions:Acute Asthma Attack Take 3 mL by nebulization every 6 (six) hours as needed for wheezing or shortness of breath 3 mL 3 3 Active acetaminophen (TYLENOL) 500 mg tabletIndicatio ns:Pain Take 2 tablets (1,000 mg total) by mouth every 8 (eight) hours 42 tablet 3 Active oxyCODONE (ROXICODONE) 5 mg immediate release tabletIndicatio ns:Pain Take 1 tablet (5 mg total) by mouth every 4 (four) hours as needed for pain 10 tablet 3 Active naproxen (NAPROSYN) 500 mg tablet Take 1 tablet (500 mg total) by mouth 2 (two) times a day with meals 30 tablet 3 Active triamcinolone (KENALOG) 0.1 % ointment Apply 1 Application topically 2 (two) times a day for 7 days, THEN 1 Application daily as needed for irritation. 30 g 1 4 Active Active Problems Problem Noted Date Diagnosed Date Unwanted fertility 11/03/2022 Overview (11/03/2022): Patient presents with continued undesired fertility. Consents lapsed, last signed 04/2022. Re-signed consents 11/03/22. Plan: - Case request placed under Dr. Liao. Will schedule/fill out FMLA paperwork when able - DMPA ordered for in-clinic administration in the interim - Discussed risks/benefits/alternatives to procedure, patient voiced understanding Encounter for other contraceptive management Overview (05/09/2022): Added automatically from request for surgery [id number] care following delivery 02/25 Overview (03/23/2022): # ID: Afebrile. No signs/symptoms of infection. #COVID-19: Test not indicated # Heme: EBL 800 mL. No symptoms acute blood loss anemia. Preop Hgb 9.2 > 8.6 POD1 # CV/Pulm: Vital signs stable, within normal limits. #Asthma: continue symbicort BID, albuterol PRN # GI/: Tolerating PO. Voiding spontaneously. Encouraged ambulation to increase passing flatus. Incision extended vertically, should not labor in the future, patient aware # Endo: GDMA1: Fasting BG POD1 95. For 2hr GTT at 6 week PP visit. # Psych: Anx/dep: Mood stable on no meds. S/p SW consult. Tob Use: patches offered # Pain: Controlled with above regimen.Pain well controlled with PO regimen. # Post DVT prophylaxis: The patient has the following MAJOR risk factors prolonged labor OR antepartum admission >72h immediately prior to delivery and the following MINOR risk factors delivery, tobacco use and parity >/=3. enoxaparin 40 mg daily ordered for VTE prophylaxis. # MOC: Depo-provera as bridge until BTL (tubal consent signed 03/21). # MOF: Both formula and . Urine drug screen not indicated. Patient informed of results: N/A. # COVID Vaccination Status: Not assessed # Disposition: Follow up task sent to [facility] scheduling pool. Desires discharge home today. premature rupture of membranes 2 Maternal asthma complicating 2 COPD exacerbation 11/13/2014 Smoking 11/13/2014 Acute respiratory failure with hypoxia 5 Asthma with status asthmaticus 08/21/2014 Asthma 08/21/2014 Overview (11/03/2022): Patient has a long standing history of asthma, began as a child. Notes some worsening symptoms, although, does not currently have an inhaler. Denies any recent hospitalizations, notes having nighttime symptoms 2x per week. Plan: - Provided with ventolin inhaler and albuterol neb Rx - Discussed that patient should call with worsening symptoms, for which she voiced understanding - Appreciate CPAP assistance with coordination of asthma symptoms for the OR Asthma with status asthmaticus 08/21/2014 Immunizations Immunization Administration Dates Next Due Influenza, Quadrivalent, Spl it, Preservative Free, Intramuscular 01/19/2022,05/13/2021 MMR 05/17/2015 Pneumococcal Polysaccharide PPV23 08/29/2015 Tdap 05/17/2015 Surgical History Surgery Date Site/Laterality Comments SECTION 03/27/2021 - 03/26/2022 Medical History Medical History Date Comments Asthma Social History Tobacco Use Types Packs/Day Years Used Date Smoking Tobacco: Every Day Cigarettes Smokeless Tobacco: Never Tobacco Cessation:Ready to Q uit: Not Asked; Counseling Given: Not Answered Social Connection and Isolat ion Panel [NHANES] Answer Date Recorded In a typical week, how many times do you talk on the phone with family, friends, or neighbors? More than three times a week 03/11/2022 How often do you get togethe r with friends or relatives? More than three times a week 03/11/2022 How often do you attend chur ch or baptist services? Never 03/11/2022 Do you belong to any clubs o r organizations such as zoroastrian groups, unions, fraternal or athletic groups, or school groups? No 03/11/2022 How often do you attend meet ings of the clubs or organizations you belong to? Never 03/11/2022 Are you , , di vorced, , never , or living with a partner? Never 03/11/2022 AUDIT-C Answer Date Recorded Q1: How often do you have a drink containing alc ohol? 2-4 times a month 01/03/2023 Q2: How many drinks containi ng alcohol do you have on a typical day when you are drinking? 1 or 2 01/03/2023 Frequency of Binge Drinking Not on file 12/25 Overall Financial Resource Strain (CARDIA) Answe r Date Recorded How hard is it for you to pa y for the very basics like food, housing, medical care, and heating? Somewhat hard 03/11/2022 Hunger Vital Sign Answer Date Recorded Within the past 12 months, y ou worried that your food would run out before you got the money to buy more. Never true 06/06/19 24 Within the past 12 months, t he food you bought just didn't last and you didn't have money to get more. Never true 06/06/2023 PRAPARE - Transportation Answer Date Re corded In the past 12 months, has l ack of transportation kept you from medical appointments or from getting medications? No 02/24 In the past 12 months, has l ack of transportation kept you from meetings, work, or from getting things needed for daily living? No 03/11/2022 Housing Stability Vital Sign Answer Juan e Recorded In the last 12 months, was t here a time when you were not able to pay the mortgage or rent on time? No 03/11/2022 In the last 12 months, how many places have you lived? 0 03/11/2022 In the last 12 months, was t here a time when you did not have a steady place to sleep or slept in a long term (including now)? No 03/11/2022 [place] Depression Scale Answer Date Recorded [place] Depression Scale Total 8 05/06/2022 The thought of harming myself has occurred to me . Never 05/06/2022 Personal Safety Answer Date Recorded Have you ever been in or are you currently in a harmful physical or emotional relationship or is someone making you feel afraid or unsafe? Denies 01/03/2023 Comments No Sex and Gender Information Value Date Recorded Sex Assigned at Not on file Legal Sex Female 7:43 PM BACTERIOLOGIST FOOD Gender Identity Not on file Sexual Orientation Not on file Obstetrics History Para Term AB IAB SAB Ectopic Multiple Livin g Live Births 4 3 2 1 1 1 0 3 3 Date Outcome GA Total Labor Labor/2nd/3rd Weight Sex Type Anes PTL Opla A1 A5 Name Clin 2005 Term M Vag-Sp ont Epidur al N Livin g Complications:None 2015 Term M Vag-Sp ont None N Livin g Complications:None 2021 SAB SAB 2021 28w 1d 1.11 kg (2 lb 7.2 oz) F C-S j incis Genera l Y Livin g 1 7 JANY RODRIGES,GI BILL gentile, Meet Arnold MD Delivery Location:[facility] Main C ampus ([facility] L AND D PROCEDURE) Last Filed Vital Signs Vital Sign Reading Time Taken Comments Blood Pressure 130/57 06/06/2023 2:49 PM CDT Pulse 84 06/06/2023 2:49 PM CDT Temperature 36 C (96.8 F) 01/03/2023 4:00 PM CDT Respiratory Rate 18 06/06/2023 2:49 PM CDT Oxygen Saturation 100% 06/06/2023 2:49 PM CDT Inhaled Oxygen Concentration - - Weight 69 kg (152 lb 3.2 oz) 06/06/2023 2:49 PM CDT Height 170.2 cm (5' 7 ) 06/06/2023 2:49 PM CDT Body Mass Index 23.84 06/06/2023 2:49 PM CDT Plan of Treatment Health Maintenance Due Date Last Done Comments Varicella Vaccines (1 of 2 - 13+ 2-dose series) 1997 Hepatitis B Screening 2002 Regular Well Visit/Exam 18-64 2002 Pneumococcal vaccine <65 (2 of 2 - PCV) 08/28/2016 08/29/2015 Cervical Cancer Screening 05/06/2023 05/06/2022 Depression Screening 05/06/2023 05/06/2022 Influenza Vaccine (#1) 2023 , 05/13/2021 DTaP/Tdap/Td Vaccine (3 - Td or Tdap) 02/24/2032 02/23/2022, 05/17/2015 Hepatitis C Screening Completed 12/01/2021 HPV Vaccines Aged Out No longer eligi ble based on patient's age to complete this topic Procedures Procedure Name Priority Date/Time Associated Diagnosis Comments PAP AND HIGH RISK HPV, REFLEX TO GENOTYPING Routine 05/06/2022 11:44 AM BACTERIOLOGIST FOOD care following delivery HEPATITIS C ANTIBODY Routine 12/01/2021 from Last 3 Months or Most Recently Relevant to Health Maintenance Results * Pap and High Risk HPV, reflex to Genotyping (05/06/2022 11:44 AM BACTERIOLOGIST FOOD) Thin prep (Pap test) 05/06/2022 11:44 AM BACTERIOLOGIST FOOD 05/06/2022 1:23 PM BACTERIOLOGIST FOOD Narrative PATHOLOGY [facility] - 05/17/2022 3:11 PM BACTERIOLOGIST FOOD EPIC results best viewed via link to PDF [facility] [place] [address] Note to Patients: This report may contain a detailed description of human tissue sent by a health care provider to the laboratory for pathologic evaluation. The content of this report is essential for diagnosis and may provide important critical findings. This information may be unfamiliar to patients to review without a medical professional present. It is advised that the patient review this report in the presence of a health care provider who can answer questions and explain the details. 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 FINAL INTERPRETATION SOURCE OF SPECIMEN Liquid based Thin Prep pap with HPV: STATEMENT OF ADEQUACY - Satisfactory for evaluation - Endocervical cells/transformation zone sample present GENERAL CATEGORIZATION: - Negative for squamous intraepithelial lesion or malignancy DESCRIPTION: - Atrophy Comments HPV Result: NEGATIVE for high risk types of Human Papilloma Virus (HPV) RNA This probe detects the presence of HPV types: 16, 18, 31, 33, 35, 39, 45, 51, 52, 56, 58, 59, 66 and 68. This HPV test was performed at [facility] in [place], [place] utilizing the Gen-Probe Aptima assay. ml/05/17/2022 15:11 Jenny Nixon MS, CT (ASCP) Report Electronically Reviewed and Signed Out By Jenny Nixon MS, CT (ASCP) 05/17/2022 15:11:39 Cervicovaginal Cytology (Pap Test) Disclaimer: The Pap test is a screening test used to detect cervical cancer and its precursors; it is not a diagnostic procedure. False negative and false positive results do occur. Pap test results should be interpreted in the context of pertinent clinical information and biopsy results as indicated. CMS Clinical Laboratory Improvement Amendments (CLIA) mandate that cytologic and histologic results be correlated for laboratory type disk quality control supervisor & improvement standards. FOR ALL HIGH-GRADE CASES we request submission of follow-up histological material and/or reports that have not been previously provided so that we may fulfill said required standards. Gross Description A. Liquid based Thin Prep pap with HPV: Cervical/vaginal - Screening ThinPrep Clinical Diagnosis and History Last Menstrual Period: Not Provided. The patient is a 36 year old female with screening. The HPV test was performed by [facility], [address] [place] [address]. Report Images and scanned documents, if included only viewable in PDF version The performance characteristics of some immunohistochemical stains, in-situ hybridization and fluorescence in-situ hybridization tests and immunophenotyping by flow cytometry cited in this report (if any) were determined by the Surgical Pathology Department at [facility] as part of an ongoing quality manager program and in compliance with federally mandated regulations drawn from the Clinical Laboratory Improvement Act of 1988 (CLIA '88). Some of these tests rely on the use of analyte specific reagents and are subject to specific labeling requirements by the US Food and Drug Administration. Such diagnostic tests may only be performed in a facility that is certified by the Department of Health and Human Services as a high complexity laboratory under CLIA '88. The FDA has determined that such clearance or approval is not necessary. This test is used for clinical purposes. It should not be regarded as investigational or for research. Nevertheless, federal rules concerning the medical use of analyte specific reagents require that the following disclaimer be attached to the report: This test was developed and its performance characteristics determined by the Surgical Pathology Department of [facility]. It has not been cleared or approved by the U. S. Food and Drug Administration. Marylu Tariq MD LAB CYTOLOGY ORDERABLES F inal Result PATHOLOGY [facility] [address] Floor [place], [place] [phone] * Hepatitis C antibody (12/01/2021) SCRIBED HCV ab neg Blood Pricila Le MD LAB MICROBIOLOGY - GENERAL ORDERABLES Final Result from Last 3 Months or Most Recently Relevant to Health Maintenance Insurance [facility] Advance Directives For more information, please contact: [phone] * Full Code (Latest Code Status on File) Date Activated Date Inactivated Comments 03/20/2022 3:50 AM 03/23/2022 3:29 PM * Full Code Date Activated Date Inactivated Comments 03/08/2022 5:08 PM 03/08/2022 10:52 PM Full CPR in case of cardiopulmonary arrest Care Teams Sort Line Relationship Specialty Start Date End Date No, Physician PCP - General 12/23/22
--- OUTSIDE RECORDS SUMMARY | 2024-05-29 15:42 | XMS_ITS | Data Portability ---
Author Organization [facility] CONNI[facility]ere Saucedo Address [address] [place] [address] Care Team Providers Care Oracle Sql Developer Name Role Phone VERA PAYNE Collections Rep Assessment Encounter Date Assessment Date Assessment LastModified by Organization Details LastModified Time 02/14/2022 02/14/2022 36y/o with PMH of asthma, anxiety/depressi on and tobacco abuse with GRETCHEN 05/29/2022 based on LMP 08/22/2021 Pt's presentation, findings, assessment and plan were discussed with resident. This is a high-risk , and pt has not followed all medical advice given. Pt left before I was able to see and examine pt with resident, altho' she understood that we were planning to see her. I reviewed the documentation and agree with the resident's note. Dr. Rodriguez Not available 02/17/2022 07:35:51 Plan of Treatment Reminders Order Date Submit Date Provider Last Modified By Organization Details Last Modified Time Details Appointments None recorded. Lab glucose tolerance test, post-50G, 1-hour 2021 022 [email or web address] [facility], [address], [address], [place], [address], 3 12:08:22 HIV 1 + 2, meaningful use set 2021 022 [email or web address] [facility], [address], [address], [place], [address], 3 12:08:23 RPR (rapid plasma reagin), serum 2021 022 [email or web address] [facility], [address], [address], [place], [address], 3 12:08:23 CBC 2021 022 [email or web address] [facility], [address], [address], [place], [address], 3 12:08:23 urinalysis, dipstick 2021 022 [email or web address] In-Office Order, Internal Use Only DO Not Attach Compendium DO Not Attach Compendium, Do Not Delete/merge, [id number] 2 17:09:44 urinalysis, dipstick 2021 022 [email or web address] In-Office Order, Internal Use Only DO Not Attach Compendium DO Not Attach Compendium, Do Not Delete/merge, [id number] 2 17:14:49 glucose tolerance test, post-50G, 1-hour 2021 022 [email or web address] [facility], [address], [address], [place], [address], 3 12:08:21 HIV 1 + 2, meaningful use set 2021 022 [email or web address] [facility], [address], [address], [place], [address], 3 12:08:22 RPR (rapid plasma reagin), serum 2021 022 [email or web address] [facility], [address], [address], [place], [address], 3 12:08:22 CBC 2021 022 [email or web address] [facility], [address], [address], [place], [address], 3 12:08:22 urinalysis complete, reflex culture 2021 022 VICTORINO [facility], [address], [address], [place], [address], 2 15:09:07 vaginal pathogens panel, THOMAS+probe, vaginal fluid 2021 VICTORINO [facility], [address], [address], [place], [address], 15:09:[address] referral 2022 023 VICTORINO Not available 3 12:18:55 Procedures None recorded. Surgeries None recorded. Imaging None recorded. Medication Orders fluconazole 150 mg tablet 2021 022 [email or web address] [id number], [address], [place], [place], [id number], 15:16:58 Patient TargetsNo targets recorded. Patient Instructions Encounter Date Encounter Id Patient Instructions Last Modified By Organization Details Last Modified Time 01/26/2022 [id number] On the date of this encounter, I saw and examined the patient, personally verifying the bowling and critical findings in the resident s note. I reviewed and agree with the resident/fellow s findings and plan. Not available 01/30/2022 19:04:54 02/23/2022 [id number] carpal tunnel syndrome: care instructions Not available 02/23/2022 21:50:41 carpal tunnel syndrome: exercises Not available 02/23/2022 21:50:41 On the date of this encounter, I saw and examined the patient, personally verifying the bowling and critical findings in the resident s note. I reviewed and agree with the resident/fellow s findings and plan. Not available 02/24/2022 11:25:06 03/08/2022 [id number] On the date of this encounter, I saw and examined the patient, personally verifying the bowling and critical findings in the resident s note. I reviewed and agree with the resident/fellow s findings and plan. [facility] Not available 03/16/2022 07:37:18 04/14/2022 [id number] eating healthy foods: care instructions Not available 04/14/2022 11:16:57 I hereby attest to the accuracy of the student s note as to history, physical examination, and medical decision-making with any exceptions or corrections noted. I independently performed or re-performed the physical examination and medical decision-making on the date of the encounter. [facility] Not available 04/14/2022 12:27:27 Reason for Referral Manager Care Referral for A [facility] Referring Physician: Pricila Le, Family Medicine, Encounter Date: 04/14/2022 Results Created Date Observation Date Name Description Value Unit Range Abnormal Flag Note LastModifiedBy Organization Detail LastModifiedTime 01/06/20 22 01/05/2022 AFP, SERUM , OPEN SPINA BIFID A comment: Akanksha dias , Ph.D. , [facility] Refer ences : Avail able Upon Reque st. Multi ples Of Media n Cutof fs For AFP [place] tions Singl eton 2.5 Black 2.8 IDD 2.0 Twins 4.5 Abbre viati on Defin ition s IDD - Insul in Dep Diabe georgina OSBR - Open Spina Bifid a Risk For furth er inqui jasmin conta ct [facility]i prtiesh at [phone]. This test was devel oped and its perfo rmanc e federico cteri stics deter mined by [facility]. It has not been clear ed or appro tyrese by the Food and Drug Admin istra tion. Not Available [facility] ([facility]) [address], [place], [address], 01/07/2022 06:14:55 01/06/2001/06/2022 AFP, SERUM , OPEN SPINA BIFID A results Report Not Available [facility] ([facility]) [address] [place], [address], 01/07/2022 06:14:55 01/06/2001/06/2022 AFP, SERUM , OPEN SPINA BIFID A test results: *Scree n Negati ve* Not Available [facility] ([facility]) [address] [place], [address], 01/07/2022 06:14:55 01/06/2001/06/2022 AFP, SERUM , OPEN SPINA BIFID A gest. age on collection date 19.4 weeks Not Available [facility]) [address] [place], [address], 01/07/2022 06:14:55 01/06/2001/06/2022 AFP, SERUM , OPEN SPINA BIFID A gestat. age based on GRETCHEN 05/29 Recal culat ions are not recom jose enrique d when gesta makeda l datin g by LMP and ultra sound are withi n 10 days. Not Available [facility] ([facility]) [address] [place], [address], 01/07/2022 06:14:55 01/06/2001/06/2022 AFP, SERUM , OPEN SPINA BIFID A [age] Not Available [facility]) [address] [place], [address], 01/07/2022 06:14:55 01/06/2001/06/2022 AFP, SERUM , OPEN SPINA BIFID A race Black Not Available [facility] ([facility]) [address] [place], [address], 01/07/2022 06:14:55 01/06/2001/06/2022 AFP, SERUM , OPEN SPINA BIFID A weight 143 lbs Not Available [facility] ([facility]) [address] [place], [address], 01/07/2022 06:14:55 01/06/2001/06/2022 AFP, SERUM , OPEN SPINA BIFID A insulin dep diabetes No Not Available [facility]) [address] [place], [address], 01/07/2022 06:14:55 01/06/2001/06/2022 AFP, SERUM , OPEN SPINA BIFID A multiple gestation No Not Available [facility]) [address] [place], [address], 01/07/2022 06:14:55 01/06/2001/06/2022 AFP, SERUM , OPEN SPINA BIFID A AFP value 84.0 NG/mL Not Available [facility] ([facility]) [address] [place], [address], 01/07/2022 06:14:55 01/06/2001/06/2022 AFP, SERUM , OPEN SPINA BIFID A AFP MOM 1.35 Not Available [facility] ([facility]) [address] [place], [address], 01/07/2022 06:14:55 01/06/2001/06/2022 AFP, SERUM , OPEN SPINA BIFID A OSBR risk 1 in 8303 Not Available [facility] ([facility]) [address] [place], [address], 01/07/2022 06:14:55 01/06/2001/06/2022 AFP, SERUM , OPEN SPINA BIFID A interpretati on Commen t Inter preta tion: Scree n Negat amrita This resul t is scree n negat amrita for OSB. The AFP MoM calcu lated is based on the gesta makeda l age provi ded. MS-AF P can ident filomena up to 80% of open neura l tube defec ts. Close d neura l tube defec ts and some open defec ts may not be detec mamie by this test. This test does not scree n for Down Syndr ome or Triso my 18. If scree mono for Down Syndr ome or Triso my 18 is petra ed, conta ct Agnes ic [facility] Servi pritesh to discu ss avail able optio ns. The Luz Elena can Colle ge of Obste trici ans and Gynec ologi sts recom mends amnio cente sis be offer ed to women age 35 and older . Not Available [facility] ([facility]) [address] [place], [address], 01/07/2022 06:14:55 01/06/2001/06/2022 AFP, SERUM , OPEN SPINA BIFID A pdf . Not Available [facility] ([facility]) [address] [place], [address], 01/07/2022 06:14:55 01/20/2001/20/2022 NUSWA B VAGIN ITIS PLUS (VG+) atopobium vaginae Low - 0 score Not Available [facility] ([facility]) [address] [place], [address], 01/21/2022 06:15:02 01/20/2001/20/2022 NUSWA B VAGIN ITIS PLUS (VG+) bvab 2 Low - 0 score Not Available [facility] ([facility]) [address] [place], [address], 01/21/2022 06:15:02 01/20/2001/20/2022 NUSWA B VAGIN ITIS PLUS (VG+) megasphaera 1 Low - 0 score Calcu late total score by bethel valentino the 3 indiv idual bacte rial vagin osis (BV) marke r score s toget her. Total score is inter prete d as follo ws: Total score 0-1: Indic ates the absen ce of BV. Total score 2: Indet ermin ate for BV. Addit ional clini fidencio data shoul d be evalu ated to estab mirnacarter carrera osis. Total score 3-6: Indic ates the prese nce of BV. This test was devel oped and its perfo rmanc e federico cteri stics deter mined by [facility]. It has not been clear ed or appro tyrese by the Food and Drug Admin istra tion. Not Available [facility] ([facility]) [address] [place], [address], 01/21/2022 06:15:02 01/20/2001/20/2022 NUSWA B VAGIN ITIS PLUS (VG+) damian albicans, THOMAS Negati ve negati ve Not Available [facility] ([facility]) [address] [place], [address], 01/21/2022 06:15:02 01/20/2001/20/2022 NUSWA B VAGIN ITIS PLUS (VG+) damian glabrata, THOMAS Negati ve negati ve Not Available [facility]) [address] [place], [address], 01/21/2022 06:15:02 01/20/2001/20/2022 NUSWA B VAGIN ITIS PLUS (VG+) trich vag by THOMAS Negati ve negati ve Not Available [facility]) [address] [place], [address], 01/21/2022 06:15:02 01/20/2001/20/2022 NUSWA B VAGIN ITIS PLUS (VG+) chlamydia trachomatis, THOMAS Negati ve negati ve Not Available [facility] ([facility]) [address] [place], [address], 01/21/2022 06:15:02 01/20/2001/20/2022 NUSWA B VAGIN ITIS PLUS (VG+) neisseria gonorrhoeae, THOMAS Negati ve negati ve Not Available [facility]) [address] [place], [address], 01/21/2022 06:15:02 01/27/20 22 01/28/2022 NUA B VAGIN ITIS PLUS (VG+) atopobium vaginae Low - 0 score Not Available [facility]) [address] [place], [address], 01/28/2022 15:09:06 01/27/2001/28/2022 NUA B VAGIN ITIS PLUS (VG+) bvab 2 Low - 0 score Not Available [facility]) [address] [place], [address], 01/28/2022 15:09:06 01/27/20 22 01/28/2022 [facility] (VG+) megasphaera 1 Low - 0 score Calcu late total score by bethel g the 3 indiv idual bacte rial vagin osis (BV) marke r score s toget her. Total score is inter prete d as follo ws: Total score 0-1: Indic ates the absen ce of BV. Total score 2: Indet ermin ate for BV. Addit ional clini fidencio data shoul d be evalu ated to estab mirna a diagn osis. Total score 3-6: Indic ates the prese nce of BV. This test was devel oped and its perfo rmanc e federico cteri stics deter mined by [facility]. It has not been clear ed or appro tyrese by the Food and Drug Admin istra tion. Not Available [facility] ([facility]) [address] [place], [address], 01/28/2022 15:09:06 01/27/20 22 01/28/2022 NUA B VAGIN ITIS PLUS (VG+) damian albicans, THOMAS Negati ve negati ve Not Available [facility]) [address] [facility] [address], [place], [address], 01/28/2022 15:09:06 01/27/20 22 01/28/2022 NUA B VAGIN ITIS PLUS (VG+) damian glabrata, THOMAS Negati ve negati ve Not Available [facility]) [address] [facility] [address], [place], [address], 01/28/2022 15:09:06 01/27/20 22 01/28/2022 NUSWA B VAGIN ITIS PLUS (VG+) trich vag by THOMAS Negati ve negati ve Not Available [facility]) [address] [facility] [address], [place], [address], 01/28/2022 15:09:06 01/27/20 22 01/28/2022 NUA B VAGIN ITIS PLUS (VG+) chlamydia trachomatis, THOMAS Negati ve negati ve Not Available [facility]) [address] [facility] [address], [place], [address], 01/28/2022 15:09:06 01/27/20 22 01/28/2022 NUA B VAGIN ITIS PLUS (VG+) neisseria gonorrhoeae, THOMAS Negati ve negati ve Not Available [facility]) [address] [facility] [address], [place], [address], 01/28/2022 15:09:06 01/27/20 22 01/27/2022 UA WITH CULTU RE REFLE X specific gravity 1.018 1.005- 1.030 Not Available [facility]) [address], [place], [address], 01/28/2022 15:09:07 01/27/20 22 01/27/2022 UA WITH CULTU RE REFLE X pH 8.0 5.0-7. 5 above high normal Not Available [facility]) [address], [place], [address], 01/28/2022 15:09:07 01/27/20 22 01/27/2022 UA WITH CULTU RE REFLE X urine-color Yellow yellow Not Available [facility] [address], [place], [address], 01/28/2022 15:09:07 01/27/20 22 01/27/2022 UA WITH CULTU RE REFLE X appearance Clear clear Not Available [facility]) [address], [place], [address], 01/28/2022 15:09:07 01/27/20 22 01/27/2022 UA WITH CULTU RE REFLE X WBC esterase 2+ negati ve abnormal Not Available [facility]) [address], [place], [address], 01/28/2022 15:09:07 01/27/20 22 01/27/2022 UA WITH CULTU RE REFLE X protein Trace negati ve/tra ce Not Available [facility]) [address], [place], [address], 01/28/2022 15:09:07 01/27/20 22 01/27/2022 UA WITH CULTU RE REFLE X glucose Negati ve negati ve Not Available [facility]) [address], [place], [address], 01/28/2022 15:09:07 01/27/20 22 01/27/2022 UA WITH CULTU RE REFLE X ketones Negati ve negati ve Not Available [facility]) [address] [facility] [address], [place], [address], 01/28/2022 15:09:07 01/27/20 22 01/27/2022 UA WITH CULTU RE REFLE X occult blood Negati ve negati ve Not Available [facility]) [address], [place], [address], 01/28/2022 15:09:07 01/27/20 22 01/27/2022 UA WITH CULTU RE REFLE X bilirubin Negati ve negati ve Not Available [facility]) [address] [facility] [address], [place], [address], 01/28/2022 15:09:07 01/27/20 22 01/27/2022 UA WITH CULTU RE REFLE X urobilinogen ,semi-qn 0.2 mg/dL 0.2-1. 0 Not Available [facility]) [address], [place], [address], 01/28/2022 15:09:07 01/27/20 22 01/27/2022 UA WITH CULTU RE REFLE X nitrite, urine Negati ve negati ve Not Available [facility]) [address], [place], [address], 01/28/2022 15:09:07 01/27/20 22 01/27/2022 UA WITH CULTU RE REFLE X microscopic examination See below: Micro scopi c was indic ated and was perfo rmed. Not Available [facility]) [address], [place], [address], 01/28/2022 15:09:07 01/27/20 22 01/27/2022 UA WITH CULTU RE REFLE X urinalysis reflex Commen t This speci men has refle xed to a Urine Cultu re. Not Available [facility]) [address], [place], [address], 01/28/2022 15:09:07 01/27/20 22 01/28/2022 URINE CULTU RE, ROUTI NE urine culture, routine Final report Not Available [facility]) [address] [facility], [place], [address], 01/28/2022 15:09:08 01/27/20 22 01/28/2022 URINE CULTU RE, ROUTI NE result 1 Commen t Mixed uroge nital alo 10,00 0-25, 000 colon y formi ng units per mL Not Available [facility]) [address], [place], [address], 01/28/2022 15:09:08 01/27/20 22 01/27/2022 MICRO SCOPI C EXAMI NATIO N WBC 6-10 /hpf 0-5 abnormal Not Available [facility]) [address] [facility], [place], [address], 01/28/2022 15:09:07 01/27/20 22 01/27/2022 MICRO SCOPI C EXAMI NATIO N RBC None seen /hpf 0-2 Not Available [facility] [address], [place], [address], 01/28/2022 15:09:07 01/27/20 22 01/27/2022 MICRO SCOPI C EXAMI NATIO N epithelial cells (non renal) 0-10 /hpf 0-10 Not Available [facility] [address] [place], [address], 01/28/2022 15:09:07 01/27/20 22 01/27/2022 MICRO SCOPI C EXAMI NATIO N casts None seen /lpf nonese en Not Available [facility]) [address] [place], [address], 01/28/2022 15:09:07 01/27/20 22 01/27/2022 MICRO SCOPI C EXAMI NATIO N bacteria Few nonese en/few Not Available [facility]) [address] [place], [address], 01/28/2022 15:09:07 02/15/20 22 02/14/2022 urina lysis , dipst ick Leukocytes Negati ve Not Available In-Office Order Internal Use Only DO Not Attach Compendium DO Not Attach Compendium, Do Not Delete/merge, [id number] 02/14/2022 16:13:41 02/15/20 22 02/14/2022 urina lysis , dipst ick Nitrite negati ve Not Available In-Office Order Internal Use Only DO Not Attach Compendium DO Not Attach Compendium, Do Not Delete/merge, [id number] 02/14/2022 16:13:41 02/15/20 22 02/14/2022 urina lysis , dipst ick Urobilinogen 8 Not Available In-Of fice Order Internal Use Only DO Not Attach Compendium DO Not Attach Compendium, Do Not Delete/merge, [id number] 02/14/2022 16:13:41 02/15/20 22 02/14/2022 urina lysis , dipst ick Protein 30 Not Available In-Office Order Internal Use Only DO Not Attach Compendium DO Not Attach Compendium, Do Not Delete/merge, [id number] 02/14/2022 16:13:41 02/15/20 22 02/14/2022 urina lysis , dipst ick pH 8.5 Not Available In-Office Order Internal Use Only DO Not Attach Compendium DO Not Attach Compendium, Do Not Delete/merge, [id number] 02/14/2022 16:13:41 02/15/20 22 02/14/2022 urina lysis , dipst ick Blood Negati ve Not Available In-Office Order Internal Use Only DO Not Attach Compendium DO Not Attach Compendium, Do Not Delete/merge, [id number] 02/14/2022 16:13:41 02/15/20 22 02/14/2022 urina lysis , dipst ick Specific [place] 1.020 Not Available In-Off ice Order Internal Use Only DO Not Attach Compendium DO Not Attach Compendium, Do Not Delete/merge, [id number] 02/14/2022 16:13:41 02/15/20 22 02/14/2022 urina lysis , dipst ick Ketone Trace Not Available In-Office Order Internal Use Only DO Not Attach Compendium DO Not Attach Compendium, Do Not Delete/merge, [id number] 02/14/2022 16:13:41 02/15/20 22 02/14/2022 urina lysis , dipst ick Bilirubin Small Not Available In-Offic e Order Internal Use Only DO Not Attach Compendium DO Not Attach Compendium, Do Not Delete/merge, [id number] 02/14/2022 16:13:41 02/15/20 22 02/14/2022 urina lysis , dipst ick Glucose 100 Not Available In-Office Order Internal Use Only DO Not Attach Compendium DO Not Attach Compendium, Do Not Delete/merge, [id number] 02/14/2022 16:13:41 02/15/20 22 02/14/2022 urina lysis , dipst ick Appearance Cloudy Not Available In-Offi ce Order Internal Use Only DO Not Attach Compendium DO Not Attach Compendium, Do Not Delete/merge, [id number] 02/14/2022 16:13:41 02/15/20 22 02/14/2022 urina lysis , dipst ick Color Dark Yellow Not Available In-Office Order Internal Use Only DO Not Attach Compendium DO Not Attach Compendium, Do Not Delete/merge, [id number] 02/14/2022 16:13:41 03/08/20 22 03/08/2022 urina lysis , dipst ick Leukocytes Large Not Available In-Offi ce Order Internal Use Only DO Not Attach Compendium DO Not Attach Compendium, Do Not Delete/merge, [id number] 03/08/2022 17:04:29 03/08/20 22 03/08/2022 urina lysis , dipst ick Nitrite negati ve Not Available In-Office Order Internal Use Only DO Not Attach Compendium DO Not Attach Compendium, Do Not Delete/merge, 03/08/2022 17:04:29 03/08/20 22 03/08/2022 urina lysis , dipst ick Protein Trace Not Available In-Office Order Internal Use Only DO Not Attach Compendium DO Not Attach Compendium, Do Not Delete/merge, [id number] 03/08/2022 17:04:29 03/08/20 22 03/08/2022 urina lysis , dipst ick pH 7.5 Not Available In-Office Order Internal Use Only DO Not Attach Compendium DO Not Attach Compendium, Do Not Delete/merge, [id number] 03/08/2022 17:04:29 03/08/20 22 03/08/2022 urina lysis , dipst ick Blood Small Not Available In-Office Order Internal Use Only DO Not Attach Compendium DO Not Attach Compendium, Do Not Delete/merge, [id number] 03/08/2022 17:04:29 03/08/20 22 03/08/2022 urina lysis , dipst ick Specific [place] 1.010 Not Available In-Off ice Order Internal Use Only DO Not Attach Compendium DO Not Attach Compendium, Do Not Delete/merge, [id number] 03/08/2022 17:04:29 03/08/20 22 03/08/2022 urina lysis , dipst ick Ketone Negati ve Not Available In-Office Order Internal Use Only DO Not Attach Compendium DO Not Attach Compendium, Do Not Delete/merge, [id number] 03/08/2022 17:04:29 03/08/20 22 03/08/2022 urina lysis , dipst ick Bilirubin Negati ve Not Available In-Office Order Internal Use Only DO Not Attach Compendium DO Not Attach Compendium, Do Not Delete/merge, [id number] 03/08/2022 17:04:29 03/08/20 22 03/08/2022 urina lysis , dipst ick Glucose Negati ve Not Available In-Office Order Internal Use Only DO Not Attach Compendium DO Not Attach Compendium, Do Not Delete/merge, [id number] 03/08/2022 17:04:29 03/08/20 22 03/08/2022 urina lysis , dipst ick Appearance Clear Not Available In-Offi ce Order Internal Use Only DO Not Attach Compendium DO Not Attach Compendium, Do Not Delete/merge, [id number] 03/08/2022 17:04:29 03/08/20 22 03/08/2022 urina lysis , dipst ick Color Yellow Not Available In-Office Order Internal Use Only DO Not Attach Compendium DO Not Attach Compendium, Do Not Delete/merge, [id number] 03/08/2022 17:04:29 02/15/20 22 02/13/2022 US, obste tric, limit ed No observ ation record ed. [email or web address] Not Available 2021 10:41:04 02/17/20 22 02/02/2022 US, obste tric, mater nal evalu ation + anato my No observ ation record ed. [address] [place], [address], 03/01/2022 17:43:38 02/22/20 22 02/02/2022 US, obste tric, mater nal evalu ation + anato my No observ ation record ed. [address] [place], [address], 02/23/2022 21:48:02 12/17/19 24 12/17/2023 XR, chest No observ ation record ed. [email or web address] [facility] [address] [place], [address], 12/18/2023 11:47:10 Result Notes None recorded. Problems Name Problem SNOMED Code Status Onset Date Resolution Date Notes Provider Name and Address Organization Details Recorded Time Pregnanc y 41476606 Completed 202104/14/2022 Pricila Le MD Attn: Neha valentino,[address] [place], [address], [facility] 3 11:09:45 Smoker [id number] Active pt plans on quitting , pharmacy referral has been made; 1/2 PPD x 5 years Krysta Dias MD Attn: Neha valentino,[address] [place], [address], [facility] 3 12:37:17 Trang a user [id number] Active Krysta Dias MD Attn: Neha valentino,[address] [facility], [place], [address], [place] [facility] 3 12:37:17 First trimeste r bleeding [id number] 63451 Active Krysta Dias MD Attn: Alexxsamara valentino,[address] [facility], [place], [place], [address] [place] [address] 2, [place] [facility] 3 12:37:17 Past pregnanc y history of miscarri age 150682775 Active Krysta Dias MD Attn: Alexxsamara valentino,[address] [facility], [place], [place], [address] [place] [address] 2, [place] [facility] 3 12:37:17 Advanced maternal age 102763444 Active Krysta Dias MD Attn: Alexxsamara valentino,[address] [facility], [place], [place], [address] [place] [address] 2, [place] [facility] 3 12:37:17 Smoker [id number] Completed pt plans on quitting , pharmacy referral has been made; 1/2 PPD x 5 years Krysta Dias MD Attn: Alexxsamara valentino,[address] [facility], [place], [place], [address] [place] [address] 2, [place] - [facility] 3 12:37:17 Marijuan a user [id number] Completed Krysta Dias MD Attn: Neha chelsy,[address] [facility], [place], [place], [address] [place] [address] 2, [place] - [facility] 3 12:37:17 First trimeste r bleeding [id number] Completed Krysta Dias MD Attn: Neha chelsy,[address] [facility], [place], [place], [address] [place] [address] 2, [place] [facility] 3 12:37:17 Past pregnanc y history of miscarri age [id number] Completed Krysta Dias MD Attn: Neha chelsy,[address] [facility], [place], [address], [place] [facility] 3 12:37:17 Advanced maternal age 175551147 Completed Krysta Dias MD Attn: Neha chelsy,[address] [place], [address], [place] [facility] 3 12:37:17 Asthma 679128275 Completed on albutero l and Dulera, referral to pharmacy has been made Krysta Dias MD Attn: Neha valentino,[address] [facility], [place], [address], [place] [facility] 3 12:37:17 Mixed anxiety and depressi ve disorder 577692135 Completed currentl y on no medicati on, referral to Behavior al therapis t has been made Krysta Dais MD Attn: Neha valentino,[address] [facility], [place], [address], [place] [facility] 3 12:37:17 Asthma in pregnanc y [id number] 103 Active 2021 Krysta Dias MD Attn: Neha valentino,[address] [facility], [place], [address], [place] [facility] 3 12:37:17 Asthma in pregnanc y [id number] 103 Completed 2021 Krysta Dias MD Attn: Neha valentino,[address] [facility], [place], [address], [place] [facility] 3 12:37:17 Problem Notes None recorded. Procedures Surgical History None recorded. Imaging Results Imaging Date Name Status LastModified by Organiz ation Details LastModified Time 02/13/2022 US,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 02/23/2022 text/html HOME VISIT: Dr. Fowler, Dr. George Godwin, Dr. Le and Dr. Tariq Vera is a 36y/o presenting @ 24.5 with GRETCHEN 06/10/2022 based on anatomy US on 02/02/2022 at 21.5 weeks. She is unsure about LMP and no documented first trimester ultrasound.She has no significant concerns today and reports normal antepartum symptoms of . She denies vaginal discharge, loss of fluid, or contractions. Good FM. No ED visits since last appointment. She does endorse some thin white discharge that is unchanged. Has not had to utilize her albuterol inhaler in the last few weeks. Also endorses right wrist pain and numbness/tingling. States she had carpal tunnel in that wrist during her previous pregnancies. Pricila Le MD Attn: Accounting[address] [facility], [place], [address], [facility] 02/24/2022 11:30:00 03/08/2022 text/html Vera is a 36 y /o presenting @ 26.4 dated by 20 week US; here for routine OB exam. Reports is feeling baby move although slightly less than normal. Has been urinating more frequently for the past week and has incontinent reporting she has been saturating a pad with clear fluid. She is concerned for UTI but denies dysuria or burning. Reports had some bloody discharge after intercourse 2 nights ago. Otherwise has no concerns. Denies feeling any contractions. Had 1 visit to triage on 02/26 for back pain, cramping in lower abdomen. Category I, good tones, no contractions. Urine was cultured but was negative. She was discharged home after overnight stay. Pricila Le MD Attn: Accounting,[address] [facility], [place], [address], [facility] 03/16/2022 07:37:26 04/14/2022 text/html 36 yo F in clini for a hospital follow up for asthma exacerbation. Patient is experiencing seasonal asthma exacerbations. She had two exacerbations in November 2022, and one in March 2022. She has no past intubations for asthma exacerbations. She does not often feel short of breath or cough at night. Currently she is using her albuterol PRN. She has been using her albuterol more frequently over the winter. She would like to see a video games storywriter to get her asthma more controlled. Pricila Le MD Attn: Accounting[address] [facility], [place], [address], [facility] 04/15/2022 10:48:07 OBGyn Episode Ob Episode Information Episode Created Date Number of Fetuses Patient Bloodtype Patient rh Status Prepregnancy Weight lbs Domestic Partner Domestic Partner Phone Father Name Exceptional Student Education Teacher Status 12/02/19 22 1 CLOSED Fetus Data First Name Last Name Admitted to NICU Weight (g) Sex Living Outcome Pediatric Complications Fetus ID Race Codes Race Delivery Type 3118.44 5 M Full Term [id number] Vaginal Gretchen Calculation Initial Gretchen Date Initial Exam Date Initial Exam Provider Initial Ultrasound Date Last Menstrual Period Date Ultra Sound Weeks Gestation 0 Eighteen To Twenty Week Gretchen Update Ultra Sound Date Fundal Height At Umbil Quickening Date Ultra Sound Latest Weeks Gestation Final Gretchen Confirmed By Final Gretchen Confirmed Date Final Gretchen Date Ultra Sound Latest Days Gestation 0 0 Menstrual History Last Menstrual Date Menses Monthly On Bcp Conception Prior Menses Frequency Hcg Plus Date Menarche Onset Age Delivery Information Delivery Date Delivery Type Labor Anesthesia Weeks Gestation Incision Type Labor Labor Length Hrs Delivered By Post Complications Tubal Sterilization Discharge Date Comments 6 None swidish [facility] Discharge Information Feeding Method Contraceptive Method Maternal HG B and HCT Levels Ob Episode Information Episode Created Date Number of Fetuses Patient Bloodtype Patient rh Status Prepregnancy Weight lbs Domestic Partner Domestic Partner Phone Father Name Exceptional Student Education Teacher Status 12/02/19 22 1 B Positive CLOSED Fetus Data First Name Last Name Admitted to NICU Weight (g) Sex Living Outcome Pediatric Complications Fetus ID Race Codes Race Delivery Type marium na Minoo nd Willi ams 1111.30 04 F Prematur e 40283 2057-08 Afric an Ameri can Primary Problems Problem Notes Unsure about support person. Unsure about epidural. Planning to feed with bottle. Problem Name Start Date End Date Resolution Snomed Code Not e Asthma in 01/03/2022 [id number] Asthma [id number] on albuter ol and Dulera, referral to pharmacy has been made Mixed anxiety and depressive disorder [id number] currentl y on no medication, referral to Behavioral therapist has been made Smoker [id number] pt plans o n quitting, pharmacy referral has been made; 1/2 PPD x 5 years Marijuana user [id number] First trimester bleeding [id number] Past history of miscarriage [id number] Advanced maternal age [id number] Gretchen Calculation Initial Gretchen Date Initial Exam Date Initial Exam Provider Initial Ultrasound Date Last Menstrual Period Date Ultra Sound Weeks Gestation 05/29/2022 12/01/2021 anthony 11/27/2021 08/22/2021 13 Eighteen To Twenty Week Gretchen Update Ultra Sound Date Fundal Height At Umbil Quickening Date Ultra Sound Latest Weeks Gestation Final Gretchen Confirmed By Final Gretchen Confirmed Date Final Gretchen Date Ultra Sound Latest Days Gestation 02/03/20 22 21 [email or web address] 02/23/2022 06/11/19 23 5 Pre- Flowsheet Flowsheet Date 12/01/2021 Morrison Score Blood Edema Fundus Height Fundus Units Glucose Ketones Leukocytes Nitrite Labor Signs Protein Cervic Dilation Cervic Effacement Cervic Station Type Weight in lbs Pre/Post Dialysis Refused Weight 138.042477045185 BP Diastolic BP Location Tested BP Systolic BP Type 80 112 sitting Fetus Heart Rate Present A 145 Present Fetus Movement Comments 36 y/o [id number] at 14.3 week b ased on first trimester Ultrasound. Presents to clinic to establish care. Pt reports that this was an unplanned but is excited about the . FOB is involved but currently doesn't live here. Pt reports that she went to [facility] on nov 27 due to vaginal bleeding ultrasound was done and baby was fine, but she was diagnosed with UTI. She was prescribed nitrofurantoin that she as suppose to take for 5 days, but only took 3 doses and the ED doctor told her to stop taking it. Pt reports that she is still spotting. currently smoking 1/2 pack a day, but is planning on quitting. Pt uses MJ routinely. Initial OB labs were ordered. Urine culture was also ordered pending. Behavioral and pharmacy referral has been made. Ordered . Follow up in 1 week. Flowsheet Date 12/08/2021 Morrison Score Blood Edema Fundus Height Fundus Units Glucose Ketones Leukocytes Nitrite Labor Signs Protein Cervic Dilation Cervic Effacement Cervic Station Type Weight in lbs Pre/Post Dialysis Refused Weight 138.671626957006 BP Diastolic BP Location Tested BP Systolic BP Type 80 118 sitting Fetus Heart Rate Present Fetus Movement Comments Flowsheet Date 01/03/2022 Morrison Score Blood Edema Fundus Height Fundus Units Glucose Ketones Leukocytes Nitrite Labor Signs Protein Cervic Dilation Cervic Effacement Cervic Station trace none none small Backpain trace Type Weight in lbs Pre/Post Dialysis Refused With clothes 143.261777406637 BP Diastolic BP Location Tested BP Systolic BP Type 46 92 sitting Fetus Heart Rate Present A 140 Present Fetus Movement A Yes Comments Vera Arnold is a 36 y/o G 32794 at 19.1 week based on first trimester Ultrasound with past medical history of asthma presenting for routine care. She was in the ED again December 17 for an asthma exacerbation. Patient denies other symptoms. Will obtain Anatomy US and AFP for neural tube defects. Flowsheet Date 01/19/2022 Morrison Score Blood Edema Fundus Height Fundus Units Glucose Ketones Leukocytes Nitrite Labor Signs Protein Cervic Dilation Cervic Effacement Cervic Station neg none 22 cm none negative Other (see comments ) neg Type Weight in lbs Pre/Post Dialysis Refused With clothes 147.596641133861 BP Diastolic BP Location Tested BP Systolic BP Type 60 90 sitting Fetus Heart Rate Present A 150 Present Fetus Movement A Yes Comments Vera Arnold is a 36 y/o G [id number] at 21.3 week based LMP (CANNOT FIND DOCUMENTATION of 1st TM US) with past medical history of asthma presenting for routine care. Patient was in the ED again december 17 and was in the ED again on 01/17 ([facility] did not check baby as they did not have US on site) for an asthma exacerbation - was on BIPAP for a few hours, received magnesium during this last visit - ICS bid and encouraged to take nebulizer. Patient denies any chest pain, vomiting, nausea, abdominal pain, urinary, stool changes. Pt as DC from hospital 01/17 - has not had any symptoms since. Complained of severe GERD without improvement of antacids - added famotidine. Anatomy US ordered. Nuswab due to persisting vaginal discharge with foul smell unresponsive to fluconazole. Continue 81mg ASA for AMA Flowsheet Date 01/26/2022 Morrison Score Blood Edema Fundus Height Fundus Units Glucose Ketones Leukocytes Nitrite Labor Signs Protein Cervic Dilation Cervic Effacement Cervic Station Type Weight in lbs Pre/Post Dialysis Refused Weight 147.867520026959 BP Diastolic BP Location Tested BP Systolic BP Type 86 102 sitting Fetus Heart Rate Present Fetus Movement Comments Flowsheet Date 02/14/2022 Morrison Score Blood Edema Fundus Height Fundus Units Glucose Ketones Leukocytes Nitrite Labor Signs Protein Cervic Dilation Cervic Effacement Cervic Station neg none trace trace none 1+ Type Weight in lbs Pre/Post Dialysis Refused With clothes 148.070802591810 BP Diastolic BP Location Tested BP Systolic BP Type 46 98 sitting Fetus Heart Rate Present A 130 Present Fetus Movement A Yes Comments Vera is a 36y/o pr esenting @ 25.1 dated by LMP at (CANNOT FIND DOCUMENTATION of 1st TM US) ; here for routine OB exam. She has no significant concerns today and reports normal antepartum symptoms of . She denies vaginal discharge, loss of fluid, or contractions. No asthma exacerbations.Was seen in ED yesterday for one episode of brown vaginal bleeding/spotting. Has thus since resolved and no further episodes. 28 week labs ordered. Given resources for WIC and rides for appointments Flowsheet Date 02/23/2022 Morrison Score Blood Edema Fundus Height Fundus Units Glucose Ketones Leukocytes Nitrite Labor Signs Protein Cervic Dilation Cervic Effacement Cervic Station neg none 25 cm none negative neg Type Weight in lbs Pre/Post Dialysis Refused 0.0 Not Performed BP Diastolic BP Location Tested BP Systolic BP Type 65 120 sitting Fetus Heart Rate Present A 135 Present Fetus Movement A Yes Comments Vera is a 36y/o pr esenting @ 24.5 with GRETCHEN 06/10/2022 based on anatomy US on 02/02/2022 at 21.5 weeks. She is unsure about LMP and no documented first trimester ultrasound. She has no significant concerns today and reports normal antepartum symptoms of . She denies vaginal discharge, loss of fluid, or contractions. Good FM. No ED visits since last appointment. TDAP given todayShe does endorse some thin white discharge that is unchanged. Has not had to utilize her albuterol inhaler in the last few weeks. Also endorses right wrist pain and numbness/tingling. States she had carpal tunnel in that wrist during her previous pregnancies. Flowsheet Date 03/08/2022 Morrison Score Blood Edema Fundus Height Fundus Units Glucose Ketones Leukocytes Nitrite Labor Signs Protein Cervic Dilation Cervic Effacement Cervic Station 1+ none none negative Other (see comments ) trace Type Weight in lbs Pre/Post Dialysis Refused 0.0 Not Performed BP Diastolic BP Location Tested BP Systolic BP Type 76 118 sitting Fetus Heart Rate Present A 130 Fetus Movement Comments Vera is a 36 y/o p resenting @ 26.4 dated by 20 week US; here for routine OB exam. Reports is feeling baby move although slightly less than normal. Has been urinating more frequently for the past week and has incontinent reporting she has been saturating a pad with clear fluid. She is concerned for UTI but denies dysuria or burning. Reports had some bloody discharge after intercourse 2 nights ago. Otherwise has no concerns. Denies feeling any contractions. Had 1 visit to triage on 02/26 for back pain, cramping in lower abdomen. Category I, good tones, no contractions. Urine was cultured but was negative. She was discharged home after overnight stay.Recommend patient go to triage for evaluation of PROM. Flowsheet Date 04/14/2022 Morrison Score Blood Edema Fundus Height Fundus Units Glucose Ketones Leukocytes Nitrite Labor Signs Protein Cervic Dilation Cervic Effacement Cervic Station Type Weight in lbs Pre/Post Dialysis Refused Weight 146.030256145848 BP Diastolic BP Location Tested BP Systolic BP Type 80 110 sitting Fetus Heart Rate Present Fetus Movement Comments Menstrual History Last Menstrual Date Menses Monthly On Bcp Conception Prior Menses Frequency Hcg Plus Date Menarche Onset Age 0508/22/2021 false 05/29/2021 12/02/19 2 2 16 Genetic Screening And Infection History Question Response Note Patient's Age Will Be 35 Yea rs Or Older At Estimated Date of Delivery true Thalassemia (English, Danish, Mediterranean, Or Background): MCV < 80 false Neural Tube Defect (Meningom yelocele, Spina Bifida, Or Anencephaly) false Congenital Heart Defect false Down Syndrome false Leon-Sachs (eg, Church, Cajun, Egyptian-Thai) f alse Melida Disease false Sickle Cell Disease Or Trait () false Hemophilia Or Other Blood Disorders false Muscular Dystrophy false Cystic Fibrosis false [place]'s Chorea false Mental Retardation/Autism false If Yes, Was Person Tested For Fragile X? false Other Inherited Genetic Or Chromosomal Disorder false Maternal Metabolic Disorder (eg, Type 1 Diabetes , PKU) false Patient Or Baby's Father Had A Child With Defects Not Listed Above false Recurrent Loss, Or A Stillbirth true on 07/21/2021 Medications (including Suppl ements, Vitamins, Herbs, OTC Drugs), Illicit/Recreational Drugs, Alcohol false If Yes, Agent(s) And Strength/Dosage false Any Other Genetic History false Live With Someone With TB Or Exposed To TB false Patient Or Partner Has History Of Genital Herpes false Rash Or Viral Illness Since Last Menstrual Perio d false History Of STD, Gonorrhea, Chlamydia, HPV, Syphi lis false Other Infection History false History of HIV false History of Hepatitis false Prior GBS-infected child false Delivery Information Delivery Date Delivery Type Labor Anesthesia Weeks Gestation Incision Type Labor Labor Length Hrs Delivered By Post Complications Tubal Sterilization Discharge Date Comments 2 Sponta neous 28.1 Low Transvers e true [facility] 03/22/2022 Discharge Information Feeding Method Contraceptive Method Maternal HG B and HCT Levels Ob Episode Information Episode Created Date Number of Fetuses Patient Bloodtype Patient rh Status Prepregnancy Weight lbs Domestic Partner Domestic Partner Phone Father Name Exceptional Student Education Teacher Status 12/02/19 22 1 CLOSED Fetus Data First Name Last Name Admitted to NICU Weight (g) Sex Living Outcome Pediatric Complications Fetus ID Race Codes Race Delivery Type , Spontane ous [id number] Gretchen Calculation Initial Gretchen Date Initial Exam Date Initial Exam Provider Initial Ultrasound Date Last Menstrual Period Date Ultra Sound Weeks Gestation 0 Eighteen To Twenty Week Gretchen Update Ultra Sound Date Fundal Height At Umbil Quickening Date Ultra Sound Latest Weeks Gestation Final Gretchen Confirmed By Final Gretchen Confirmed Date Final Gretchen Date Ultra Sound Latest Days Gestation 0 0 Menstrual History Last Menstrual Date Menses Monthly On Bcp Conception Prior Menses Frequency Hcg Plus Date Menarche Onset Age Delivery Information Delivery Date Delivery Type Labor Anesthesia Weeks Gestation Incision Type Labor Labor Length Hrs Delivered By Post Complications Tubal Sterilization Discharge Date Comments 2 reports that it was less then 20 weeks Discharge Information Feeding Method Contraceptive Method Maternal HG B and HCT Levels Ob Episode Information Episode Created Date Number of Fetuses Patient Bloodtype Patient rh Status Prepregnancy Weight lbs Domestic Partner Domestic Partner Phone Father Name Exceptional Student Education Teacher Status 12/02/19 22 1 CLOSED Fetus Data First Name Last Name Admitted to NICU Weight (g) Sex Living Outcome Pediatric Complications Fetus ID Race Codes Race Delivery Type 2352.78 1704 M Full Term [id number] Vaginal Gretchen Calculation Initial Gretchen Date Initial Exam Date Initial Exam Provider Initial Ultrasound Date Last Menstrual Period Date Ultra Sound Weeks Gestation 0 Eighteen To Twenty Week Gretchen Update Ultra Sound Date Fundal Height At Umbil Quickening Date Ultra Sound Latest Weeks Gestation Final Gretchen Confirmed By Final Gretchen Confirmed Date Final Gretchen Date Ultra Sound Latest Days Gestation 0 0 Menstrual History Last Menstrual Date Menses Monthly On Bcp Conception Prior Menses Frequency Hcg Plus Date Menarche Onset Age Delivery Information Delivery Date Delivery Type Labor Anesthesia Weeks Gestation Incision Type Labor Labor Length Hrs Delivered By Post Complications Tubal Sterilization Discharge Date Comments 6 Regional-Ep idural false swidish [facility] Discharge Information Feeding Method Contraceptive Method Maternal HG B and HCT Levels
--- OUTSIDE RECORDS SUMMARY | 2024-05-29 15:42 | XMS_ITS | Referral Summary ---
Author Organization [facility] Address [address] [place] [address] Care Team Providers Care Site Auditor Name Role Phone No, Physician Primary Care Provider [phone] Allergies No known active allergies Medications mometasone-form [...] 1 tablet (81 mg total) by mouth farm instructor before breakfast 3 Active albuterol HFA (PROVENTIL [...] (05/09/2022): Added automatically from request for surgery [id number] care following delivery 02/25 Overview (03/23/2022): # [...] # Disposition: Follow up task sent to [facility] scheduling pool. Desires discharge home today. [...] 05/17/2015 Pneumococcal Polysaccharide PPV23 08/29/2015 Tdap 05/17/2015 Social History Tobacco Use Types Packs/Day Years [...] often do you attend chur ch or zoroastrianism services? Never 03/11/2022 Do you belong to any clubs o r organizations such as druze groups, unions, fraternal or athletic groups, or [...] place to sleep or slept in a penitentiary (including now)? No 03/11/2022 Baker Depression Scale Answer Date Recorded Baker Depression Scale Total 8 05/06/2022 The thought [...] on file Legal Sex Female 7:43 PM ANIMAL CARE ATTENDANT Gender Identity Not on file Sexual Orientation [...] 06/06/2023 2:49 PM CDT Plan of Treatment Not on file Procedures Procedure Name Priority Date/Time Associated Diagnosis Comments PAP AND HIGH RISK HPV, REFLEX TO GENOTYPING Routine 05/06/2022 11:44 AM ANIMAL CARE ATTENDANT care following delivery HEPATITIS C ANTIBODY Routine 12/01/2021 from Last 3 Months or Most Recently Relevant to Health Maintenance Results * Pap and High Risk HPV, reflex to Genotyping (05/06/2022 11:44 AM ANIMAL CARE ATTENDANT) Thin prep (Pap test) 05/06/2022 11:44 AM ANIMAL CARE ATTENDANT 05/06/2022 1:23 PM ANIMAL CARE ATTENDANT Narrative PATHOLOGY [facility] - 05/17/2022 3:11 PM ANIMAL CARE ATTENDANT EPIC results best viewed via link to PDF [facility] Marisol [facility] Laboratory [place] [address] Note to Patients: This report may contain [...] the details. CYTOPATHOLOGY REPORT FINAL Patient Name: LORAINE VERDUZCO Gender: F : 1985 (Age: 36) Address: [address] [place] [address] [address], [place] [address] Hospital #: [id number] Service: REFRIGERATED CARGO CLERK Location: Patient Type: [facility] Ancillary Taken: 05/06/2022 Received: 05/06/2022 Accessioned: 05/10/2022 [...] 68. This HPV test was performed at [facility] in [place], [place] utilizing the Gen-Probe Aptima assay. /05/17/2022 15:[address] (ASCP) Report Electronically Reviewed and Signed Out By Jenny Nixon MS CT (ASCP) 05/17/2022 15:11:39 Cervicovaginal Cytology (Pap [...] and histologic results be correlated for laboratory quality control lead & improvement standards. FOR ALL HIGH-GRADE CASES [...] screening. The HPV test was performed by [facility], [address] [place] [address]. Report Images and scanned documents, if included only viewable in PDF version The performance characteristics of some immunohistochemical stains, in-situ hybridization and fluorescence in-situ hybridization tests and immunophenotyping by flow cytometry cited in this report (if any) were determined by the Surgical Pathology Department at [facility] as part of an ongoing senior quality engineer program and in compliance with federally mandated [...] determined by the Surgical Pathology Department of [facility]. It has not been cleared or approved by the U. S. Food and Drug Administration. Marylu Tariq MD LAB CYTOLOGY ORDERABLES F inal Result PATHOLOGY [facility] 3rd Floor [place], [place] [phone] * Hepatitis C antibody (12/01/2021) SCRIBED HCV ab neg Blood Pricila Le MD LAB MICROBIOLOGY - GENERAL ORDERABLES Final Result from Last 3 Months or Most Recently Relevant to Health Maintenance Insurance [facility] Advance Directives For more information, please contact: [phone] * Full Code (Latest Code Status on File) Date Activated Date Inactivated Comments 03/20/2022 3:50 AM 03/23/2022 3:29 PM * Full Code Date Activated Date Inactivated Comments 03/08/2022 5:08 PM 03/08/2022 10:52 PM Full CPR in case of cardiopulmonary arrest Care Teams Site Auditor Relationship Specialty Start Date End Date No, Physician PCP - General 12/23/22
--- OUTSIDE RECORDS SUMMARY | 2024-05-29 16:49 | XMS_ITS | Clinical Summary ---
Author Organization [facility] Address [address] [place] [address] Care Team Providers Care Fitter Helper Name Role Phone No, Physician Primary Care Provider [phone] Allergies No known active allergies Medications mometasone-form [...] 1 tablet (81 mg total) by mouth drop pit worker before breakfast 3 Active albuterol HFA (PROVENTIL [...] (05/09/2022): Added automatically from request for surgery [id number] care following delivery 02/25 Overview (03/23/2022): # [...] # Disposition: Follow up task sent to [facility] scheduling pool. Desires discharge home today. premature [...] often do you attend chur ch or lutheran services? Never 03/11/2022 Do you belong to any clubs o r organizations such as mormonism groups, unions, fraternal or athletic groups, or [...] place to sleep or slept in a [place] (including now)? No 03/11/2022 [place] Depression Scale Answer Date Recorded [place] Depression Scale Total 8 05/06/2022 The thought [...] on file Legal Sex Female 7:43 PM SLATE MIXER Gender Identity Not on file Sexual Orientation Not on file Obstetrics History Para Term AB IAB SAB Ectopic Multiple Livin g Live Births 4 3 2 1 1 1 0 3 3 Date Outcome GA Total Labor Labor/2nd/3rd Weight Sex Type Anes PTL Opal A1 A5 Name Clin 2005 Term M Vag-Sp ont Epidur al N Livin g Complications:None 2015 Term M Vag-Sp ont None N Livin g Complications:None 2021 SAB SAB 2021 28w 1d 1.11 kg (2 lb 7.2 oz) F C-S j incis Genera l Y Livin g 1 7 JANY RODRIGES,GI BILL gentile, Meet Aronld MD Delivery Location:[facility] Main C ampus ([facility] L AND D PROCEDURE) Last Filed Vital [...] REFLEX TO GENOTYPING Routine 05/06/2022 11:44 AM SLATE MIXER care following delivery HEPATITIS C ANTIBODY Routine 12/01/2021 from Last 3 Months or Most Recently Relevant to Health Maintenance Results * Pap and High Risk HPV, reflex to Genotyping (05/06/2022 11:44 AM SLATE MIXER) Thin prep (Pap test) 05/06/2022 11:44 AM SLATE MIXER 05/06/2022 1:23 PM SLATE MIXER Narrative PATHOLOGY [facility] - 05/17/2022 3:11 PM SLATE MIXER EPIC results best viewed via link to PDF [facility] Marisol Rosa Laboratory [place] [address] Note to Patients: This report may contain [...] Gender: F : 1985 (Age: 36) Address: [address] [place] [address] [address], [place] [address] Hospital #: [id number] Service: DESTINATION IMAGINATION COORDINATOR Location: Patient Type: [facility] Ancillary Taken: 05/06/2022 Received: 05/06/2022 Accessioned: 05/10/2022 [...] 68. This HPV test was performed at [facility] in [place], [place] utilizing the Gen-Probe Aptima assay. ml/05/17/2022 [...] and histologic results be correlated for laboratory vendor quality supervisor & improvement standards. FOR ALL HIGH-GRADE [...] screening. The HPV test was performed by [facility], [address] [place] [address]. Report Images and scanned documents, if included only viewable in PDF version The performance characteristics of some immunohistochemical stains, in-situ hybridization and fluorescence in-situ hybridization tests and immunophenotyping by flow cytometry cited in this report (if any) were determined by the Surgical Pathology Department at [facility] as part of an ongoing director quality assurance program and in compliance with federally mandated [...] determined by the Surgical Pathology Department of [facility]. It has not been cleared or approved by the U. S. Food and Drug Administration. Marylu Tariq MD LAB CYTOLOGY ORDERABLES F inal Result PATHOLOGY [facility] 3rd Floor [place], [place] [phone] * Hepatitis C antibody (12/01/2021) SCRIBED HCV ab neg Blood Pricila Le MD LAB MICROBIOLOGY - GENERAL ORDERABLES Final Result from Last 3 Months or Most Recently Relevant to Health Maintenance Insurance [facility] Advance Directives For more information, please contact: [phone] * Full Code (Latest Code Status on File) Date Activated Date Inactivated Comments 03/20/2022 3:50 AM 03/23/2022 3:29 PM * Full Code Date Activated Date Inactivated Comments 03/08/2022 5:08 PM 03/08/2022 10:52 PM Full CPR in case of cardiopulmonary arrest Care Teams Fitter Helper Relationship Specialty Start Date End Date No, Physician PCP - General 12/23/22
--- OUTSIDE RECORDS SUMMARY | 2024-05-29 16:49 | XMS_ITS | Referral Summary ---
Author Organization [facility] Address [address] [place] [address] Care Team Providers Care Heddler Name Role Phone No, Physician Primary Care Provider [phone] Allergies No known active allergies Medications mometasone-form [...] 1 tablet (81 mg total) by mouth oral health therapist before breakfast 3 Active albuterol HFA (PROVENTIL [...] (05/09/2022): Added automatically from request for surgery [id number] care following delivery 02/25 Overview (03/23/2022): # [...] # Disposition: Follow up task sent to [facility] scheduling pool. Desires discharge home today. [...] often do you attend chur ch or faith services? Never 03/11/2022 Do you belong to any clubs o r organizations such as anabaptism groups, unions, fraternal or athletic groups, or [...] place to sleep or slept in a [facility] (including now)? No 03/11/2022 [place] Depression Scale Answer Date Recorded [place] Depression Scale Total 8 05/06/2022 The thought [...] on file Legal Sex Female 7:43 PM QUALITY ASSISTANT Gender Identity Not on file Sexual Orientation [...] REFLEX TO GENOTYPING Routine 05/06/2022 11:44 AM QUALITY ASSISTANT care following delivery HEPATITIS C ANTIBODY Routine 12/01/2021 from Last 3 Months or Most Recently Relevant to Health Maintenance Results * Pap and High Risk HPV, reflex to Genotyping (05/06/2022 11:44 AM QUALITY ASSISTANT) Thin prep (Pap test) 05/06/2022 11:44 AM QUALITY ASSISTANT 05/06/2022 1:23 PM QUALITY ASSISTANT Narrative PATHOLOGY [facility] - 05/17/2022 3:11 PM QUALITY ASSISTANT EPIC results best viewed via link to PDF [facility] Marisol Rosa Laboratory [place] [address] Note to Patients: This report may contain [...] Gender: F : 1985 (Age: 36) Address: [address] [place] [address] [address] [address] Hospital #: [id number] Service: CNC LATHE PROGRAMMER Location: Patient Type: [facility] Ancillary Taken: 05/06/2022 Received: 05/06/2022 [...] 68. This HPV test was performed at in [place], [place] utilizing the Gen-Probe Aptima assay. /05/17/2022 [...] and histologic results be correlated for laboratory supplier quality & improvement standards. FOR ALL HIGH-GRADE CASES [...] screening. The HPV test was performed by , [address] [place] [address]. Report Images and scanned documents, if included only viewable in PDF version The performance characteristics of some immunohistochemical stains, in-situ hybridization and fluorescence in-situ hybridization tests and immunophenotyping by flow cytometry cited in this report (if any) were determined by the Surgical Pathology Department at [facility] as part of an ongoing corporate quality engineer program and in compliance with [...] determined by the Surgical Pathology Department of [facility]. It has not been cleared or approved by the U. S. Food and Drug Administration. Marylu Tariq MD LAB CYTOLOGY ORDERABLES F inal Result PATHOLOGY [facility] 3rd Floor [place], [place] [phone] * Hepatitis C antibody (12/01/2021) SCRIBED HCV ab neg Blood Pricila Le MD LAB MICROBIOLOGY - GENERAL ORDERABLES Final Result from Last 3 Months or Most Recently Relevant to Health Maintenance Insurance [facility] Advance Directives For more information, please contact: [phone] * Full Code (Latest Code Status on File) Date Activated Date Inactivated Comments 03/20/2022 3:50 AM 03/23/2022 3:29 PM * Full Code Date Activated Date Inactivated Comments 03/08/2022 5:08 PM 03/08/2022 10:52 PM Full CPR in case of cardiopulmonary arrest Care Teams Heddler Relationship Specialty Start Date End Date No, Physician PCP - General 12/23/22
--- OUTSIDE RECORDS SUMMARY | 2024-05-29 16:49 | XMS_ITS | Clinical Summary ---
Author Organization [facility] Address [address] [place] [address] Care Team Providers Care Doll Surgeon Name Role Phone None, Provider MD Primary [...] Problem Noted Date Diagnosed Date Asthma exacerbation ([facility]) 04/10/2022 Family History Medical History Relation Comments [...] on file Legal Sex Female 7:36 PM FIELD TEST ENGINEER Gender Identity Not on file Sexual Orientation Not on file Last Filed Vital Signs Vital Sign Reading Time Taken Comments Blood Pressure 134/80 04/12/2022 11:00 AM FIELD TEST ENGINEER Pulse 97 04/12/2022 11:00 AM FIELD TEST ENGINEER Temperature 36.8 C (98.2 F) 04/12/2022 11:00 AM FIELD TEST ENGINEER Respiratory Rate 18 04/12/2022 11:0 0 AM FIELD TEST ENGINEER Oxygen Saturation 98% 04/12/2022 11: 00 AM FIELD TEST ENGINEER Inhaled Oxygen Concentration - - Weight 71.2 kg (156 lb 15.5 oz) 04/12/2022 4:00 AM FIELD TEST ENGINEER Height 167.6 cm (5' 6 ) 04/10/2022 7:44 PM FIELD TEST ENGINEER Body Mass Index 25.34 04/10/2022 7:44 PM FIELD TEST ENGINEER Plan of Treatment Health Maintenance Due Date [...] ADLs independently Lifestyle Khris Harding, RN Insurance C/O PROVIDER SERVICES CINDY ZAMBRANO [id number] Advance Directives * Full Code (Latest Code Status on File) Date Activated Date Inactivated Comments 04/10/2022 10:29 PM 04/12/2022 2:07 PM Care Teams Doll Surgeon Relationship Specialty Start Date End Date None, Provider, PCP - General UNKNOWN PHYSICIAN SPECIALTY 04/10/22
--- OUTSIDE RECORDS SUMMARY | 2024-05-29 16:50 | XMS_ITS | CONTINUITY OF CARE DOCUMENT ---
Author Name armando roberts Address Unknown Organization [facility] Address [address] [place] [address] Phone [phone] Care Team Providers Care Cross Cut Sawyer Name Role Phone Prasad Vargas MD Unavailable Prasad Vargas MD Unavailable [phone] ANASTASIYA HERNADNEZ MD Unavailable [phone] INSURANCE PROVIDERS Payer name Policy type / Coverage type [place] Medicaid [id number]
== END 2024-05-29 16:07 | disposition home or self-care (01) ==
PROVIDERS: Emergency Medicine; Emergency Provider Emergency Medicine; PCP Internal Medicine
DX: R10.11 Right upper quadrant pain (principal); J45.909 Unspecified asthma, uncomplicated; K21.9 Gastro-esophageal reflux disease without esophagitis; F17.210 Nicotine dependence, cigarettes, uncomplicated
CPT/HCPCS: 36415; 76705; 80053; 81001; 81025; 83690; 85025; 94640; 96361; 96374; 96375; 99284; J2270; J2405; J7030

== ENCOUNTER 2024-06-10 19:20 | Emergency (ER) | payer OTHER, SELFPAY ==
--- OUTSIDE RECORDS SUMMARY | 2024-06-10 19:23 | XMS_ITS | Clinical Summary ---
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 Gender Identity Not on file Sexual Orientation Not on file Last Filed Vital Signs Vital Sign Reading Time Taken Comments Blood Pressure 134/80 04/12/2022 11:00 AM MOLD LOFT WORKER Pulse 97 04/12/2022 11:00 AM MOLD LOFT WORKER Temperature 36.8 C (98.2 F) 04/12/2022 11:00 AM MOLD LOFT WORKER Respiratory Rate 18 04/12/2022 11:0 0 AM MOLD LOFT WORKER Oxygen Saturation 98% 04/12/2022 11: 00 AM MOLD LOFT WORKER Inhaled Oxygen Concentration - - Weight 71.2 kg (156 lb 15.5 oz) 04/12/2022 4:00 AM MOLD LOFT WORKER Height 167.6 cm (5' 6 ) 04/10/2022 7:44 PM MOLD LOFT WORKER Body Mass Index 25.34 04/10/2022 7:44 PM MOLD LOFT WORKER Plan of Treatment Health Maintenance Due Date [...] RN Insurance C/O PROVIDER SERVICES CINDY ZAMBR[place] [id number] Advance Directives * Full Code (Latest Code Status on File) Date Activated Date Inactivated Comments 04/10/2022 10:29 PM 04/12/2022 2:07 PM Care Teams Machine Leather Trimmer Relationship Specialty Start Date End Date None, Provider, PCP - General UNKNOWN PHYSICIAN SPECIALTY 04/10/22
--- OUTSIDE RECORDS SUMMARY | 2024-06-10 19:23 | XMS_ITS | CONTINUITY OF CARE DOCUMENT ---
Author Name armando roberts Address Unknown Organization [facility] Address [address] [place] [address] Phone [phone] Care Team Providers Care Human Resources Officer Name Role Phone Prasad Vargas MD Unavailable [phone] Prasad Vargas MD Unavailable ANASTASIYA HERNANDEZ MD Unavailable [phone] INSURANCE PROVIDERS Payer name Policy type / Coverage type [place] Medicaid [id number]
--- OUTSIDE RECORDS SUMMARY | 2024-06-10 19:23 | XMS_ITS | Clinical Summary ---
Author Organization [facility] Address [address] [place] [address] Care Team Providers Care Residential Framing Carpenter Name Role Phone No, Physician Primary Care Provider [phone] Allergies No known active allergies Medications mometasone-form [...] 1 tablet (81 mg total) by mouth plunger scoop operator before breakfast 3 Active albuterol HFA (PROVENTIL [...] (05/09/2022): Added automatically from request for surgery [id number] care following delivery 02/25 Overview (03/23/2022): # [...] # Disposition: Follow up task sent to [facility] scheduling pool. Desires discharge home today. [...] often do you attend chur ch or church services? Never 03/11/2022 Do you belong to any clubs o r organizations such as episcopalian groups, unions, fraternal or athletic groups, or [...] place to sleep or slept in a fdc (including now)? No 03/11/2022 [place] Depression Scale Answer Date Recorded [place] Depression Scale Total 8 05/06/2022 The thought [...] on file Legal Sex Female 7:43 PM AGATE SETTER Gender Identity Not on file Sexual Orientation [...] RODRIGES,GI BILL gentile, Meet Arnold MD Delivery Location:[facility] Main C ampus ([facility] L AND D PROCEDURE) Last [...] REFLEX TO GENOTYPING Routine 05/06/2022 11:44 AM AGATE SETTER care following delivery HEPATITIS C ANTIBODY Routine 12/01/2021 from Last 3 Months or Most Recently Relevant to Health Maintenance Results * Pap and High Risk HPV, reflex to Genotyping (05/06/2022 11:44 AM AGATE SETTER) Thin prep (Pap test) 05/06/2022 11:44 AM AGATE SETTER 05/06/2022 1:23 PM AGATE SETTER Narrative PATHOLOGY [facility] - 05/17/2022 3:11 PM AGATE SETTER EPIC results best viewed via link to PDF [facility] Marisol Rosa Laboratory [place] [address] Note to Patients: This report may contain [...] F : 1985 (Age: 36) Address: [address] [place] [address] [address], [place] [address] Hospital #: [id number] Service: MEDICAL STAFF PHYSICIAN Location: Patient Type: [facility] Ancillary Taken: 05/06/2022 Received: 05/06/2022 [...] 68. This HPV test was performed at [facility] in [place], [place] utilizing the Gen-Probe Aptima assay. ml/05/17/2022 [...] and histologic results be correlated for laboratory head of quality & improvement standards. FOR ALL HIGH-GRADE [...] screening. The HPV test was performed by [facility], [address] [place] [address]. Report Images and scanned documents, if included only viewable in PDF version The performance characteristics of some immunohistochemical stains, in-situ hybridization and fluorescence in-situ hybridization tests and immunophenotyping by flow cytometry cited in this report (if any) were determined by the Surgical Pathology Department at [facility] as part of an ongoing head of quality program and in compliance with federally mandated [...] determined by the Surgical Pathology Department of [facility]. It has not been cleared or approved by the U. S. Food and Drug Administration. Marylu Tariq MD LAB CYTOLOGY ORDERABLES F inal Result PATHOLOGY [facility] 3rd Floor [place], [place] [phone] * Hepatitis C antibody (12/01/2021) SCRIBED HCV ab neg Blood Pricila Le MD LAB MICROBIOLOGY - GENERAL ORDERABLES Final Result from Last 3 Months or Most Recently Relevant to Health Maintenance Insurance [facility] Advance Directives For more information, please contact: [phone] * Full Code (Latest Code Status on File) Date Activated Date Inactivated Comments 03/20/2022 3:50 AM 03/23/2022 3:29 PM * Full Code Date Activated Date Inactivated Comments 03/08/2022 5:08 PM 03/08/2022 10:52 PM Full CPR in case of cardiopulmonary arrest Care Teams Residential Framing Carpenter Relationship Specialty Start Date End Date No, Physician PCP - General 12/23/22
--- OUTSIDE RECORDS SUMMARY | 2024-06-10 19:23 | XMS_ITS | Data Portability ---
Author Organization [facility] Saucedo Address [address] [place] [address] Care Team Providers Care Database Modeler Name Role Phone VERA PAYNE Boarding Machine Operator Assessment Encounter Date Assessment Date Assessment LastModified [...] agree with the resident's note. Dr. Rodriguez [email or web address] Not available 02/17/2022 07:35:51 Plan of Treatment Reminders Order Date Submit Date Provider Last Modified By Organization Details Last Modified Time Details Appointments None recorded. Lab glucose tolerance test, post-50G, 1-hour 2021 022 [email or web address] [facility], [address], [address], [place], [address], 3 12:08:22 HIV 1 + 2, meaningful use set 2021 022 [email or web address] [facility], [address] [facility] [address] [address], [place], [address], 3 12:08:23 RPR (rapid plasma reagin), serum 2021 022 [email or web address] [facility], [address], [address], [place], [address], 3 12:08:23 CBC 2021 022 [email or web address] [facility], [address], [address], [place], [address], 3 12:08:23 urinalysis, dipstick 2021 022 [email or web address] In-Office Order, Internal Use Only DO Not Attach Compendium DO Not Attach Compendium, Do Not Delete/merge, [id number] 2 17:09:44 urinalysis, dipstick 2021 022 [email or web address] [email or web address] In-Office Order, Internal Use Only DO Not Attach Compendium DO Not Attach Compendium, Do Not Delete/merge, [id number] 2 17:14:49 glucose tolerance test, post-50G, 1-hour 2021 022 [email or web address] [facility], [address], [address], [place], [address], 3 12:08:21 HIV 1 + 2, meaningful use set 2021 022 [email or web address] [facility], [address], [address], [place], [address], 3 12:08:22 RPR (rapid plasma reagin), serum 2021 022 [email or web address] [facility], [address], [address], [place], [address], 3 12:08:22 CBC 2021 022 [email or web address] [facility], [address] [facility] [address], [place], [address], 3 12:08:22 urinalysis complete, reflex culture 2021 022 VICTORINO [facility], [address] [facility] [address], [place], [address], 2 15:09:07 vaginal pathogens panel, THOMAS+probe, vaginal fluid 2021 VICTORINO [facility], [address] [facility] [address] [address], [place], [address], 15:09:[address] referral 2022 023 VICTORINO Not available 3 12:18:55 Procedures None recorded. Surgeries None recorded. Imaging None recorded. Medication Orders fluconazole 150 mg tablet 2021 022 [email or web address] [id number], [address] [facility], [place], [place], [id number], 15:16:58 Patient TargetsNo targets recorded. Patient Instructions Encounter Date Encounter Id Patient Instructions Last Modified By Organization Details Last Modified Time 01/26/2022 [id number] On the date of this encounter, I saw and examined the patient, personally verifying the bowling and critical findings in the resident s note. I reviewed and agree with the resident/fellow s findings and plan. Not available 01/30/2022 19:04:54 02/23/2022 [id number] carpal tunnel syndrome: care instructions Not available 02/23/2022 21:50:41 carpal tunnel syndrome: exercises Not available 02/23/2022 21:50:41 On the date of this encounter, I saw and examined the patient, personally verifying the bowling and critical findings in the resident s note. I reviewed and agree with the resident/fellow s findings and plan. Not available 02/24/2022 11:25:06 03/08/2022 [id number] On the date of this encounter, I saw and examined the patient, personally verifying the bowling and critical findings in the resident s note. I reviewed and agree with the resident/fellow s findings and plan. [facility] Not available 03/16/2022 07:37:18 04/14/2022 [id number] eating healthy foods: care instructions Not available 04/14/2022 11:16:57 I hereby attest to the accuracy of the student s note as to history, physical examination, and medical decision-making with any exceptions or corrections noted. I independently performed or re-performed the physical examination and medical decision-making on the date of the encounter. [facility] Not available 04/14/2022 12:27:27 Reason for Referral Nitro Man Referral for A [facility] Referring Physician: Pricila Le, Family Medicine, Encounter Date: 04/14/2022 Results Created Date Observation Date Name Description Value Unit Range Abnormal Flag Note LastModifiedBy Organization Detail LastModifiedTime 01/06/20 22 01/05/2022 AFP, SERUM , OPEN SPINA BIFID A comment: Akanksha dias , Ph.D. , [facility] Refer ences : Avail able Upon Reque st. Multi ples Of Media n Cutof fs For AFP [place] tions Singl eton 2.5 Black 2.8 IDD 2.0 Twins 4.5 Abbre viati on Defin ition s IDD - Insul in Dep Diabe georgina OSBR - Open Spina Bifid a Risk For furth er inqui jasmin conta ct [facility]nes [facility] Servi pritesh at [phone] GENE. This test was devel oped and its perfo rmanc e federico cteri stics deter mined by [facility]. It has not been clear ed or appro tyrese by the Food and Drug Admin istra tion. Not Available [facility] ([facility]) [address] [facility], [place], [address], 01/07/2022 06:14:55 01/06/2001/06/2022 AFP, SERUM , OPEN SPINA BIFID A results Report Not Available [facility] ([facility]) [address] [place], [address], 01/07/2022 06:14:55 01/06/2001/06/2022 AFP, SERUM , OPEN SPINA BIFID A test results: *Scree n Negati ve* Not Available [facility] ([facility]) [address] [place], [address], 01/07/2022 06:14:55 01/06/2001/06/2022 AFP, SERUM , OPEN SPINA BIFID A gest. age on collection date 19.4 weeks Not Available [facility] ([facility]) [address] [place], [address], 01/07/2022 06:14:55 01/06/2001/06/2022 AFP, SERUM , OPEN SPINA BIFID A gestat. age based on GRETCHEN 05/29 Recal culat ions are not recom jose enrique d when gesta makeda l datin g by LMP and ultra sound are withi n 10 days. Not Available [facility] ([facility]) [address] [place], [address], 01/07/2022 06:14:55 01/06/2001/06/2022 AFP, SERUM , OPEN SPINA BIFID A [age] Not Available [facility] ([facility]) [address] [place], [address], 01/07/2022 06:14:55 01/06/2001/06/2022 AFP, SERUM , OPEN SPINA BIFID A race Black Not Available [facility] ([facility]) [address] [place], [address], 01/07/2022 06:14:55 01/06/2001/06/2022 AFP, SERUM , OPEN SPINA BIFID A weight 143 lbs Not Available [facility] ([facility]) [address] [place], [address], 01/07/2022 06:14:55 01/06/2001/06/2022 AFP, SERUM , OPEN SPINA BIFID A insulin dep diabetes No Not Available [facility] ([facility]) [address] [place], [address], 01/07/2022 06:14:55 01/06/2001/06/2022 AFP, SERUM , OPEN SPINA BIFID A multiple gestation No Not Available [facility] ([facility]) [address] [place], [address], 01/07/2022 06:14:55 01/06/2001/06/2022 AFP, SERUM , OPEN SPINA BIFID A AFP value 84.0 NG/mL Not Available [facility] ([facility]) [address] [place], [address], 01/07/2022 06:14:55 01/06/2001/06/2022 AFP, SERUM , OPEN SPINA BIFID A AFP MOM 1.35 Not Available [facility] ([facility]) [address] [place], [address], 01/07/2022 06:14:55 01/06/2001/06/2022 AFP, SERUM , OPEN SPINA BIFID A OSBR risk 1 in 8303 Not Available [facility] ([facility]) [address] [place], [address], 01/07/2022 06:14:55 01/06/2001/06/2022 AFP, SERUM , OPEN [...] 35 and older . Not Available [facility] ([facility]) [address] [place], [address], 01/07/2022 06:14:55 01/06/2001/06/2022 AFP, SERUM , OPEN SPINA BIFID A pdf . Not Available [facility] ([facility]) [address] [place], [address], 01/07/2022 06:14:55 01/20/2001/20/2022 NUSWA B VAGIN ITIS PLUS (VG+) atopobium vaginae Low - 0 score Not Available [facility] ([facility]) [address] [place], [address], 01/21/2022 06:15:02 01/20/2001/20/2022 NUSWA B VAGIN ITIS PLUS (VG+) bvab 2 Low - 0 score Not Available [facility] ([facility]) [address] [place], [address], 01/21/2022 06:15:02 01/20/2001/20/2022 NUSWA B VAGIN ITIS [...] Drug Admin istra tion. Not Available [facility] ([facility]) [address] [place], [address], 01/21/2022 06:15:02 01/20/2001/20/2022 NUSWA B VAGIN ITIS PLUS (VG+) damian albicans, THOMAS Negati ve negati ve Not Available [facility] ([facility]) [address] [place], [address], 01/21/2022 06:15:02 01/20/2001/20/2022 NUSWA B VAGIN ITIS PLUS (VG+) damian glabrata, THOMAS Negati ve negati ve Not Available [facility] ([facility]) [address] [place], [address], 01/21/2022 06:15:02 01/20/2001/20/2022 NUSWA B VAGIN ITIS PLUS (VG+) trich vag by THMOAS Negati ve negati ve Not Available [facility] ([facility]) [address] [place], [address], 01/21/2022 06:15:02 01/20/2001/20/2022 NUSWA B VAGIN ITIS PLUS (VG+) chlamydia trachomatis, THOMAS Negati ve negati ve Not Available [facility] ([facility]) [address] [place], [address], 01/21/2022 06:15:02 01/20/2001/20/2022 NUSWA B VAGIN ITIS PLUS (VG+) neisseria gonorrhoeae, THOMAS Negati ve negati ve Not Available [facility] ([facility]) [address] [place], [address], 01/21/2022 06:15:02 01/27/20 22 01/28/2022 NUA B VAGIN ITIS PLUS (VG+) atopobium vaginae Low - 0 score Not Available [facility] ([facility]) [address] [place], [address], 01/28/2022 15:09:06 01/27/2001/28/2022 NUA B VAGIN ITIS PLUS (VG+) bvab 2 Low - 0 score Not Available [facility] ([facility]) [address] [place], [address], 01/28/2022 15:09:06 01/27/20 22 01/28/2022 [facility] [...] Drug Admin istra tion. Not Available [facility] ([facility]) [address] [place], [address], 01/28/2022 15:09:06 01/27/20 22 01/28/2022 NUA B VAGIN ITIS PLUS (VG+) damian albicans, THOMAS Negati ve negati ve Not Available [facility] ([facility]) [address] [facility], [place], [address], 01/28/2022 15:09:06 01/27/20 22 01/28/2022 NUA B VAGIN ITIS PLUS (VG+) damian glabrata, THOMAS Negati ve negati ve Not Available [facility] ([facility]) [address] [facility], [place], [address], 01/28/2022 15:09:06 01/27/20 22 01/28/2022 NUSWA B VAGIN ITIS PLUS (VG+) trich vag by THOMAS Negati ve negati ve Not Available [facility] ([facility]) [address] [facility], [place], [address], 01/28/2022 15:09:06 01/27/20 22 01/28/2022 NUA B VAGIN ITIS PLUS (VG+) chlamydia trachomatis, THOMAS Negati ve negati ve Not Available [facility] ([facility]) [address] [facility], [place], [address], 01/28/2022 15:09:06 01/27/20 22 01/28/2022 NUA B VAGIN ITIS PLUS (VG+) neisseria gonorrhoeae, THOMAS Negati ve negati ve Not Available [facility] ([facility]) [address] [facility], [place], [address], 01/28/2022 15:09:06 01/27/20 22 01/27/2022 UA WITH CULTU RE REFLE X specific gravity 1.018 1.005- 1.030 Not Available [facility] ([facility]) [address] [facility], [place], [address], 01/28/2022 15:09:07 01/27/20 22 01/27/2022 UA WITH CULTU RE REFLE X pH 8.0 5.0-7. 5 above high normal Not Available [facility] ([facility]) [address] [facility], [place], [address], 01/28/2022 15:09:07 01/27/20 22 01/27/2022 UA WITH CULTU RE REFLE X urine-color Yellow yellow Not Available [facility] ([facility]) [address] [facility], [place], [address], 01/28/2022 15:09:07 01/27/20 22 01/27/2022 UA WITH CULTU RE REFLE X appearance Clear clear Not Available [facility] ([facility]) [address] [facility], [place], [address], 01/28/2022 15:09:07 01/27/20 22 01/27/2022 UA WITH CULTU RE REFLE X WBC esterase 2+ negati ve abnormal Not Available [facility] ([facility]) [address] [facility], [place], [address], 01/28/2022 15:09:07 01/27/20 22 01/27/2022 UA WITH CULTU RE REFLE X protein Trace negati ve/tra ce Not Available [facility] ([facility]) [address] [facility], [place], [address], 01/28/2022 15:09:07 01/27/20 22 01/27/2022 UA WITH CULTU RE REFLE X glucose Negati ve negati ve Not Available [facility] ([facility]) [address] [facility], [place], [address], 01/28/2022 15:09:07 01/27/20 22 01/27/2022 UA WITH CULTU RE REFLE X ketones Negati ve negati ve Not Available [facility] ([facility]) [address] [facility], [place], [address], 01/28/2022 15:09:07 01/27/20 22 01/27/2022 UA WITH CULTU RE REFLE X occult blood Negati ve negati ve Not Available [facility] ([facility]) [address] [facility], [place], [address], 01/28/2022 15:09:07 01/27/20 22 01/27/2022 UA WITH CULTU RE REFLE X bilirubin Negati ve negati ve Not Available [facility] ([facility]) [address] [facility], [place], [address], 01/28/2022 15:09:07 01/27/20 22 01/27/2022 UA WITH CULTU RE REFLE X urobilinogen ,semi-qn 0.2 mg/dL 0.2-1. 0 Not Available [facility] ([facility]) [address] [facility], [place], [address], 01/28/2022 15:09:07 01/27/20 22 01/27/2022 UA WITH CULTU RE REFLE X nitrite, urine Negati ve negati ve Not Available [facility] ([facility]) [address] [facility], [place], [address], 01/28/2022 15:09:07 01/27/20 22 01/27/2022 UA WITH CULTU RE REFLE X microscopic examination See below: Micro scopi c was indic ated and was perfo rmed. Not Available [facility] ([facility]) [address] [facility], [place], [address], 01/28/2022 15:09:07 01/27/20 22 01/27/2022 UA WITH CULTU RE REFLE X urinalysis reflex Commen t This speci men has refle xed to a Urine Cultu re. Not Available [facility] ([facility]) [address] [facility], [place], [address], 01/28/2022 15:09:07 01/27/20 22 01/28/2022 URINE CULTU RE, ROUTI NE urine culture, routine Final report Not Available [facility] ([facility]) [address] [facility], [place], [address], 01/28/2022 15:09:08 01/27/20 22 01/28/2022 URINE CULTU RE, ROUTI NE result 1 Commen t Mixed uroge nital alo 10,00 0-25, 000 colon y formi ng units per mL Not Available [facility] ([facility]) [address] [facility], [place], [address], 01/28/2022 15:09:08 01/27/20 22 01/27/2022 MICRO SCOPI C EXAMI NATIO N WBC 6-10 /hpf 0-5 abnormal Not Available [facility] ([facility]) [address] [facility], [place], [address], 01/28/2022 15:09:07 01/27/20 22 01/27/2022 MICRO SCOPI C EXAMI NATIO N RBC None seen /hpf 0-2 Not Available [facility] ([facility]) [address] [facility], [place], [address], 01/28/2022 15:09:07 01/27/20 22 01/27/2022 MICRO SCOPI C EXAMI NATIO N epithelial cells (non renal) 0-10 /hpf 0-10 Not Available [facility] ([facility]) [address] [place], [address], 01/28/2022 15:09:07 01/27/20 22 01/27/2022 MICRO SCOPI C EXAMI NATIO N casts None seen /lpf nonese en Not Available [facility] ([facility]) [address] [place], [address], 01/28/2022 15:09:07 01/27/20 22 01/27/2022 MICRO SCOPI C EXAMI NATIO N bacteria Few nonese en/few Not Available [facility] ([facility]) [address] [place], [address], 01/28/2022 15:09:07 02/15/20 22 02/14/2022 urina lysis , dipst ick Leukocytes Negati ve Not Available In-Office Order Internal Use Only DO Not Attach Compendium DO Not Attach Compendium, Do Not Delete/merge, [id number] 02/14/2022 16:13:41 02/15/20 22 02/14/2022 urina lysis , dipst ick Nitrite negati ve Not Available In-Office Order Internal Use Only DO Not Attach Compendium DO Not Attach Compendium, Do Not Delete/merge, [id number] 02/14/2022 16:13:41 02/15/20 22 02/14/2022 urina lysis , dipst ick Urobilinogen 8 Not Available In-Of fice Order Internal Use Only DO Not Attach Compendium DO Not Attach Compendium, Do Not Delete/merge, [id number] 02/14/2022 16:13:41 02/15/20 22 02/14/2022 urina lysis , dipst ick Protein 30 Not Available In-Office Order Internal Use Only DO Not Attach Compendium DO Not Attach Compendium, Do Not Delete/merge, [id number] 02/14/2022 16:13:41 02/15/20 22 02/14/2022 urina lysis , dipst ick pH 8.5 Not Available In-Office Order Internal Use Only DO Not Attach Compendium DO Not Attach Compendium, Do Not Delete/merge, [id number] 02/14/2022 16:13:41 02/15/20 22 02/14/2022 urina lysis , dipst ick Blood Negati ve Not Available In-Office Order Internal Use Only DO Not Attach Compendium DO Not Attach Compendium, Do Not Delete/merge, [id number] 02/14/2022 16:13:41 02/15/20 22 02/14/2022 urina lysis , dipst ick Specific [place] 1.020 Not Available In-Off ice Order Internal Use Only DO Not Attach Compendium DO Not Attach Compendium, Do Not Delete/merge, [id number] 02/14/2022 16:13:41 02/15/20 22 02/14/2022 urina lysis , dipst ick Ketone Trace Not Available In-Office Order Internal Use Only DO Not Attach Compendium DO Not Attach Compendium, Do Not Delete/merge, [id number] 02/14/2022 16:13:41 02/15/20 22 02/14/2022 urina lysis , dipst ick Bilirubin Small Not Available In-Offic e Order Internal Use Only DO Not Attach Compendium DO Not Attach Compendium, Do Not Delete/merge, [id number] 02/14/2022 16:13:41 02/15/20 22 02/14/2022 urina lysis , dipst ick Glucose 100 Not Available In-Office Order Internal Use Only DO Not Attach Compendium DO Not Attach Compendium, Do Not Delete/merge, [id number] 02/14/2022 16:13:41 02/15/20 22 02/14/2022 urina lysis , dipst ick Appearance Cloudy Not Available In-Offi ce Order Internal Use Only DO Not Attach Compendium DO Not Attach Compendium, Do Not Delete/merge, [id number] 02/14/2022 16:13:41 02/15/20 22 02/14/2022 urina lysis , dipst ick Color Dark Yellow Not Available In-Office Order Internal Use Only DO Not Attach Compendium DO Not Attach Compendium, Do Not Delete/merge, [id number] 02/14/2022 16:13:41 03/08/20 22 03/08/2022 urina lysis , dipst ick Leukocytes Large Not Available In-Offi ce Order Internal Use Only DO Not Attach Compendium DO Not Attach Compendium, Do Not Delete/merge, [id number] 03/08/2022 17:04:29 03/08/20 22 03/08/2022 urina lysis , dipst ick Nitrite negati ve Not Available In-Office Order Internal Use Only DO Not Attach Compendium DO Not Attach Compendium, Do Not Delete/merge, 03/08/2022 17:04:29 03/08/20 22 03/08/2022 urina lysis , dipst ick Protein Trace Not Available In-Office Order Internal Use Only DO Not Attach Compendium DO Not Attach Compendium, Do Not Delete/merge, [id number] 03/08/2022 17:04:29 03/08/20 22 03/08/2022 urina lysis , dipst ick pH 7.5 Not Available In-Office Order Internal Use Only DO Not Attach Compendium DO Not Attach Compendium, Do Not Delete/merge, [id number] 03/08/2022 17:04:29 03/08/20 22 03/08/2022 urina lysis , dipst ick Blood Small Not Available In-Office Order Internal Use Only DO Not Attach Compendium DO Not Attach Compendium, Do Not Delete/merge, [id number] 03/08/2022 17:04:29 03/08/20 22 03/08/2022 urina lysis , dipst ick Specific [place] 1.010 Not Available In-Off ice Order Internal Use Only DO Not Attach Compendium DO Not Attach Compendium, Do Not Delete/merge, [id number] 03/08/2022 17:04:29 03/08/20 22 03/08/2022 urina lysis , dipst ick Ketone Negati ve Not Available In-Office Order Internal Use Only DO Not Attach Compendium DO Not Attach Compendium, Do Not Delete/merge, [id number] 03/08/2022 17:04:29 03/08/20 22 03/08/2022 urina lysis , dipst ick Bilirubin Negati ve Not Available In-Office Order Internal Use Only DO Not Attach Compendium DO Not Attach Compendium, Do Not Delete/merge, [id number] 03/08/2022 17:04:29 03/08/20 22 03/08/2022 urina lysis , dipst ick Glucose Negati ve Not Available In-Office Order Internal Use Only DO Not Attach Compendium DO Not Attach Compendium, Do Not Delete/merge, [id number] 03/08/2022 17:04:29 03/08/20 22 03/08/2022 urina lysis , dipst ick Appearance Clear Not Available In-Offi ce Order Internal Use Only DO Not Attach Compendium DO Not Attach Compendium, Do Not Delete/merge, [id number] 03/08/2022 17:04:29 03/08/20 22 03/08/2022 urina lysis , dipst ick Color Yellow Not Available In-Office Order Internal Use Only DO Not Attach Compendium DO Not Attach Compendium, Do Not Delete/merge, [id number] 03/08/2022 17:04:29 02/15/20 22 02/13/2022 US, obste tric, limit ed No observ ation record ed. [email or web address] Not Available 2021 10:41:04 02/17/20 22 02/02/2022 US, obste tric, mater nal evalu ation + anato my No observ ation record ed. [address] [place], [address], 03/01/2022 17:43:38 02/22/20 22 02/02/2022 US, obste tric, mater nal evalu ation + anato my No observ ation record ed. [address] [place], [address], 02/23/2022 21:48:02 12/17/19 24 12/17/2023 XR, chest No observ ation record ed. [email or web address] [address] [place], [address], 12/18/2023 11:47:10 Result Notes None recorded. Problems Name Problem SNOMED Code Status Onset Date Resolution Date Notes Provider Name and Address Organization Details Recorded Time Pregnanc y 50758934 Completed 202104/14/2022 Prciila Le MD Attn: Neha valentino,[address] [place], [address], [facility] 3 11:09:45 Smoker 91259656 Active pt plans on quitting , pharmacy referral has been made; 1/2 PPD x 5 years Krysta Dias MD Attn: Neha valentino,[address] [place], [address], [facility] 3 12:37:17 Trang a user 688424187 Active Krysta Dias MD Attn: Neha valentino,[address] [facility], [place], [address], [place] [facility] 3 12:37:17 First trimeste r bleeding 22246568102 89284 Active Krysta Dias MD Attn: Alexxsamara valentino,[address] [facility], [place], [place], [address] [place] [address] 2, [place] [facility] 3 12:37:17 Past pregnanc y history of miscarri age 436814320 Active Krysta Dias MD Attn: Alexxsamara valentino,[address] [facility], [place], [place], [address] [place] [address] 2, [place] [facility] 3 12:37:17 Advanced maternal age 867533347 Active Krysta Dias MD Attn: Alexxsamara valentino,[address] [facility], [place], [address] [place] [address] 2, [place] [facility] 3 12:37:17 Smoker 30408075 Completed pt plans on quitting , pharmacy referral has been made; 1/2 PPD x 5 years Krysta Dias MD Attn: Alexxsamara valentino,[address] [facility], [place], [place], [address] [place] [address] 2, [place] [facility] 3 12:37:17 Marijuan a user 813527533 Completed Krysta Dias MD Attn: Neha chelsy,[address] [facility], [place], [address] [place] [address] 2, [place] [facility] 3 12:37:17 First trimeste r bleeding [id number] 24379 Completed Krysta Dias MD Attn: Neha chelsy,[address] [facility], [place], [address] [place] [address] 2, [place] [facility] 3 12:37:17 Past pregnanc y history of miscarri age 502568058 Completed Krysta Dias MD Attn: Neha chelsy,[address] [facility], [place], [address], [place] [facility] 3 12:37:17 Advanced maternal age 594558508 Completed Krysta Dias MD Attn: Neha chelsy,[address] [place], [address], [place] [facility] 3 12:37:17 Asthma 646241356 Completed on albutero l and Dulera, referral to pharmacy has been made Krysta Dias MD Attn: Neha valentino,[address] [facility], [place], [address], [place] [facility] 3 12:37:17 Mixed anxiety and depressi ve disorder 252512037 Completed currentl y on no medicati on, referral to Behavior al therapis t has been made Krysta Dias MD Attn: Neha valentino,[address] [facility], [place], [address], [place] [facility] 3 12:37:17 Asthma in pregnanc y 67189212526 103 Active 2021 Krysta Dias MD Attn: Neha valentino,[address] [facility], [place], [address], [place] [facility] 3 12:37:17 Asthma in pregnanc y 18841056108 103 Completed 2021 Krysta Dias MD Attn: Neha valentino,[address] [facility], [place], [address], [place] [facility] 3 12:37:17 Problem Notes None recorded. Procedures Surgical History None recorded. Imaging Results Imaging Date Name Status LastModified by Organiz ation Details LastModified Time 02/13/2022 US, obstetric, limited completed mmetias Information not available 03/08/2022 10:41:04 02/02/2022 US, obstetric, maternal evaluation + anatomy completed [address] [place], [address], 03/01/2022 17:43:38 02/02/2022 US, obstetric, maternal evaluation + anatomy completed [place] [address] [place], [address], 02/23/2022 21:48:02 12/17/2023 XR, chest completed [email or web address] [facility] [address] [place], [address], 12/18/2023 11:47:10 Procedure Notes None recorded. Medical [...] 102 mm[Hg] 86 mm[Hg] Sharon Carter [facility] 2 12:04:11 Date Recorded Body weight Provider Name an d Address Organization Details Last Updated DateTime 01/26/2022 06443.345107 g Maia Zaldivar [facility] 023 10:10:51 Date Recorded Body height Body mass index (BMI) Heart rate Body temperature Respiratory rate Oxygen saturation Oxygen saturation in Arterial blood by Pulse oximetry Systolic blood pressure Diastolic blood pressure Provider Name and Address Organization Details Last Updated DateTime 2 167.64 cm 23.9 kg/m2 51 /min 96.8 [degF] 16 /min 99 % 99 % 98 mm[Hg] 46 mm[Hg] Eliz Garcia MA [facility] 2 16:11:17 Date Recorded Body weight Provider Name an d Address Organization Details Last Updated DateTime 02/14/2022 27375.374235 g VERA PAYNE DO Attn: Accounting,[address] [place], [address], [facility] 02/14/2022 17:04:56 Date Recorded Body temperature Body height Heart rate Oxygen saturation Oxygen saturation in Arterial blood by Pulse oximetry Respiratory rate Systolic blood pressure Diastolic blood pressure Provider Name and Address Organization Details Last Updated DateTime 2 97.2 [degF] 167.64 cm 73 /min 99 % 99 % 16 /min 120 mm[Hg] 65 mm[Hg] VERA PAYNE DO Attn: Neha valentino,[address] [place], [address],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
--- OUTSIDE RECORDS SUMMARY | 2024-06-10 19:23 | XMS_ITS | Referral Summary ---
Author Organization [facility] Address [address] [place] [address] Care Team Providers Care [employer] Planners Name Role Phone No, Physician Primary Care Provider [phone] Allergies No known active allergies Medications mometasone-form [...] 1 tablet (81 mg total) by mouth manager distribution center before breakfast 3 Active albuterol HFA (PROVENTIL [...] (05/09/2022): Added automatically from request for surgery [id number] care following delivery 02/25 Overview (03/23/2022): # [...] # Disposition: Follow up task sent to [facility] scheduling pool. Desires discharge home [...] often do you attend chur ch or anglican services? Never 03/11/2022 Do you belong to any clubs o r organizations such as presybeterian groups, unions, fraternal or athletic groups, or [...] place to sleep or slept in a jail (including now)? No 03/11/2022 Mil[place] Depression Scale Answer Date Recorded [place] Depression Scale Total 8 05/06/2022 The thought [...] on file Legal Sex Female 7:43 PM TRUCK SWITCHER Gender Identity Not on file Sexual Orientation [...] REFLEX TO GENOTYPING Routine 05/06/2022 11:44 AM TRUCK SWITCHER care following delivery HEPATITIS C ANTIBODY Routine 12/01/2021 from Last 3 Months or Most Recently Relevant to Health Maintenance Results * Pap and High Risk HPV, reflex to Genotyping (05/06/2022 11:44 AM TRUCK SWITCHER) Thin prep (Pap test) 05/06/2022 11:44 AM TRUCK SWITCHER 05/06/2022 1:23 PM TRUCK SWITCHER Narrative PATHOLOGY [facility] - 05/17/2022 3:11 PM TRUCK SWITCHER EPIC results best viewed via link to PDF [facility] [place] [address] Note to Patients: This report may contain [...] Gender: F : 1985 (Age: 36) Address: [address] [place] [address] [address], [place] [address] Hospital #: [id number] Service: TRANSIT DEPARTMENT CLERK Location: Patient Type: [facility] Ancillary Taken: 05/06/2022 Received: 05/06/2022 [...] 68. This HPV test was performed at [facility] in [place], [place] utilizing the Gen-Probe Aptima assay. /05/17/2022 [...] histologic results be correlated for laboratory quality coordinator & improvement standards. FOR ALL HIGH-GRADE CASES [...] screening. The HPV test was performed by [facility], [address] [place] [address]. Report Images and scanned documents, if included only viewable in PDF version The performance characteristics of some immunohistochemical stains, in-situ hybridization and fluorescence in-situ hybridization tests and immunophenotyping by flow cytometry cited in this report (if any) were determined by the Surgical Pathology Department at [facility] as part of an ongoing quality internship program and in compliance with federally mandated [...] determined by the Surgical Pathology Department of [facility]. It has not been cleared or approved by the U. S. Food and Drug Administration. Marylu Tariq MD LAB CYTOLOGY ORDERABLES F inal Result PATHOLOGY [facility] 3rd Floor [place], [place] [phone] * Hepatitis C antibody (12/01/2021) SCRIBED HCV ab neg Blood Pricila Le MD LAB MICROBIOLOGY - GENERAL ORDERABLES Final Result from Last 3 Months or Most Recently Relevant to Health Maintenance Insurance [facility] Advance Directives For more information, please contact: [phone] * Full Code (Latest Code Status on File) Date Activated Date Inactivated Comments 03/20/2022 3:50 AM 03/23/2022 3:29 PM * Full Code Date Activated Date Inactivated Comments 03/08/2022 5:08 PM 03/08/2022 10:52 PM Full CPR in case of cardiopulmonary arrest Care Teams [employer] Pl[employer] Relationship Specialty Start Date End Date No, Physician PCP - General 12/23/22
[2024-06-10 19:46] VITALS: BP 122/66; PULSE 92; RESP 18; TEMP 36.8; O2SAT 100
--- NOTE | 2024-06-10 20:00 | ECG_ITS ---
Test Date: 2024-06-10 20:43:02 Measurements Intervals [place] Rate: 88 P: 67 HI: 200 QRS: 62 QRSD: 92 T: 54 QT: 357 QTc: 433 Interpretive Statements SINUS RHYTHM No previous ECG available for comparison Electronically Signed On 06-11-2024 16:46:10 CDT by Jarad Page M.D.
--- NOTE | 2024-06-10 22:27 | PC.NURSE ---
Pt sitting in waiting room entrance area multiple times since arrival. Pt yelled at this RN to have IV removed and stated that she is leaving because she is not staying for the wait. IV removed with tip intact. Pt taken back to ed entrance where she is waiting to be picked up.
--- NOTE | 2024-06-10 22:47 | PC.NURSE ---
Pt ambulated to ED exit with steady gait and in NAD at this time.
--- OUTSIDE RECORDS SUMMARY | 2024-06-10 23:16 | XMS_ITS | Clinical Summary ---
Author Organization [facility] Address [address] [place] [address] Care Team Providers Care Service Delivery Supervisor Name Role Phone No, Physician Primary Care Provider [phone] Allergies No known active allergies Medications mometasone-form [...] 1 tablet (81 mg total) by mouth hydrogen power plant manager before breakfast 3 Active albuterol HFA (PROVENTIL [...] (05/09/2022): Added automatically from request for surgery [id number] care following delivery 02/25 Overview (03/23/2022): # [...] # Disposition: Follow up task sent to [facility] scheduling pool. Desires discharge home today. [...] often do you attend chur ch or jain services? Never 03/11/2022 Do you belong to any clubs o r organizations such as restorationist groups, unions, fraternal or athletic groups, or [...] place to sleep or slept in a nursing home (including now)? No 03/11/2022 [place] Depression Scale Answer Date Recorded [place] Depression Scale Total 8 05/06/2022 The thought [...] on file Legal Sex Female 7:43 PM PENSION FUND MANAGER Gender Identity Not on file Sexual Orientation [...] RODRIGES,GI BILL gentile, Meet Arnold MD Delivery Location:[facility] Main C ampus ([facility] L AND D PROCEDURE) Last Filed [...] REFLEX TO GENOTYPING Routine 05/06/2022 11:44 AM PENSION FUND MANAGER care following delivery HEPATITIS C ANTIBODY Routine 12/01/2021 from Last 3 Months or Most Recently Relevant to Health Maintenance Results * Pap and High Risk HPV, reflex to Genotyping (05/06/2022 11:44 AM PENSION FUND MANAGER) Thin prep (Pap test) 05/06/2022 11:44 AM PENSION FUND MANAGER 05/06/2022 1:23 PM PENSION FUND MANAGER Narrative PATHOLOGY [facility] - 05/17/2022 3:11 PM PENSION FUND MANAGER EPIC results best viewed via link to PDF [facility] Marisol Rosa [facility] [place] [address] Note to Patients: This report may contain [...] Gender: F : 1985 (Age: 36) Address: [address] [place] [address] [address], [place] [address] Hospital #: [id number] Service: RAILROAD REPAIRER Location: Patient Type: [facility] Ancillary Taken: 05/06/2022 Received: 05/06/2022 Accessioned: [...] 68. This HPV test was performed at [facility] in [place], [place] utilizing the Gen-Probe Aptima assay. ml/05/17/2022 [...] results be correlated for laboratory quality control specialist & improvement standards. FOR ALL HIGH-GRADE CASES [...] screening. The HPV test was performed by [facility], [address] [place] [address]. Report Images and scanned documents, if included only viewable in PDF version The performance characteristics of some immunohistochemical stains, in-situ hybridization and fluorescence in-situ hybridization tests and immunophenotyping by flow cytometry cited in this report (if any) were determined by the Surgical Pathology Department at [facility] as part of an ongoing quality worker program and in compliance with federally mandated [...] determined by the Surgical Pathology Department of [facility]. It has not been cleared or approved by the U. S. Food and Drug Administration. Marylu Tariq MD LAB CYTOLOGY ORDERABLES F inal Result PATHOLOGY [facility] 3rd Floor [place], [place] [phone] * Hepatitis C antibody (12/01/2021) SCRIBED HCV ab neg Blood Pricila Le MD LAB MICROBIOLOGY - GENERAL ORDERABLES Final Result from Last 3 Months or Most Recently Relevant to Health Maintenance Insurance [facility] Advance Directives For more information, please contact: [phone] * Full Code (Latest Code Status on File) Date Activated Date Inactivated Comments 03/20/2022 3:50 AM 03/23/2022 3:29 PM * Full Code Date Activated Date Inactivated Comments 03/08/2022 5:08 PM 03/08/2022 10:52 PM Full CPR in case of cardiopulmonary arrest Care Teams Service Delivery Supervisor Relationship Specialty Start Date End Date No, Physician PCP - General 12/23/22
--- OUTSIDE RECORDS SUMMARY | 2024-06-10 23:16 | XMS_ITS | Clinical Summary ---
Author Organization [facility] Address [address] [place] [address] Care Team Providers Care Weatherstrip Machine Operator Name Role Phone None, Provider MD Primary [...] Problem Noted Date Diagnosed Date Asthma exacerbation ([facility]) 04/10/2022 Family History Medical History Relation Comments [...] on file Legal Sex Female 7:36 PM COMMERCIAL APPRAISER Gender Identity Not on file Sexual Orientation Not on file Last Filed Vital Signs Vital Sign Reading Time Taken Comments Blood Pressure 134/80 04/12/2022 11:00 AM COMMERCIAL APPRAISER Pulse 97 04/12/2022 11:00 AM COMMERCIAL APPRAISER Temperature 36.8 C (98.2 F) 04/12/2022 11:00 AM COMMERCIAL APPRAISER Respiratory Rate 18 04/12/2022 11:0 0 AM COMMERCIAL APPRAISER Oxygen Saturation 98% 04/12/2022 11: 00 AM COMMERCIAL APPRAISER Inhaled Oxygen Concentration - - Weight 71.2 kg (156 lb 15.5 oz) 04/12/2022 4:00 AM COMMERCIAL APPRAISER Height 167.6 cm (5' 6 ) 04/10/2022 7:44 PM COMMERCIAL APPRAISER Body Mass Index 25.34 04/10/2022 7:44 PM COMMERCIAL APPRAISER Plan of Treatment Health Maintenance Due Date [...] RN Insurance C/O PROVIDER SERVICES CINDY ZAMBRANO [id number] Advance Directives * Full Code (Latest Code Status on File) Date Activated Date Inactivated Comments 04/10/2022 10:29 PM 04/12/2022 2:07 PM Care Teams Weatherstrip Machine Operator Relationship Specialty Start Date End Date None, Provider, PCP - General UNKNOWN PHYSICIAN SPECIALTY 04/10/22
--- OUTSIDE RECORDS SUMMARY | 2024-06-10 23:16 | XMS_ITS | Referral Summary ---
Author Organization [facility] Address [address] [place] [address] Care Team Providers Care Relief Docking Master Name Role Phone No, Physician Primary Care Provider [phone] Allergies No known active allergies Medications mometasone-form [...] 1 tablet (81 mg total) by mouth family nurse before breakfast 3 Active albuterol HFA (PROVENTIL [...] (05/09/2022): Added automatically from request for surgery [id number] care following delivery 02/25 Overview (03/23/2022): # [...] # Disposition: Follow up task sent to [facility] scheduling pool. Desires discharge home today. [...] often do you attend chur ch or mormonism services? Never 03/11/2022 Do you belong to any clubs o r organizations such as congregation groups, unions, fraternal or athletic groups, or [...] a nursing home (including now)? No 03/11/2022 [place] Depression Scale Answer Date Recorded [place] Depression Scale Total 8 05/06/2022 The thought [...] on file Legal Sex Female 7:43 PM CHANGE CONTROL COORDINATOR Gender Identity Not on file Sexual Orientation [...] REFLEX TO GENOTYPING Routine 05/06/2022 11:44 AM CHANGE CONTROL COORDINATOR care following delivery HEPATITIS C ANTIBODY Routine 12/01/2021 from Last 3 Months or Most Recently Relevant to Health Maintenance Results * Pap and High Risk HPV, reflex to Genotyping (05/06/2022 11:44 AM CHANGE CONTROL COORDINATOR) Thin prep (Pap test) 05/06/2022 11:44 AM CHANGE CONTROL COORDINATOR 05/06/2022 1:23 PM CHANGE CONTROL COORDINATOR Narrative PATHOLOGY [facility] - 05/17/2022 3:11 PM CHANGE CONTROL COORDINATOR EPIC results best viewed via link to PDF [facility] Marisol Rosa Laboratory [place] [address] Note to Patients: This report may contain [...] Gender: F : 1985 (Age: 36) Address: [address] [place] [address] [address], [place] [address] Hospital #: [id number] Service: TRADE MARKER Location: Patient Type: [facility] Ancillary Taken: 05/06/2022 Received: 05/06/2022 Accessioned: [...] 68. This HPV test was performed at [facility] in [place], [place] utilizing the Gen-Probe Aptima assay. /05/17/2022 [...] histologic results be correlated for laboratory quality assurance monitor chassis & improvement standards. FOR ALL HIGH-GRADE CASES [...] screening. The HPV test was performed by [facility], [address] [place] [address]. Report Images and scanned documents, if included only viewable in PDF version The performance characteristics of some immunohistochemical stains, in-situ hybridization and fluorescence in-situ hybridization tests and immunophenotyping by flow cytometry cited in this report (if any) were determined by the Surgical Pathology Department at [facility] as part of an ongoing quality control microbiology supervisor program and in compliance with federally mandated [...] determined by the Surgical Pathology Department of [facility]. It has not been cleared or approved by the U. S. Food and Drug Administration. Marylu Tariq MD LAB CYTOLOGY ORDERABLES F inal Result PATHOLOGY [facility] 3rd Floor [place], [place] [phone] * Hepatitis C antibody (12/01/2021) SCRIBED HCV ab neg Blood Pricila Le MD LAB MICROBIOLOGY - GENERAL ORDERABLES Final Result from Last 3 Months or Most Recently Relevant to Health Maintenance Insurance [facility] Advance Directives For more information, please contact: [phone] * Full Code (Latest Code Status on File) Date Activated Date Inactivated Comments 03/20/2022 3:50 AM 03/23/2022 3:29 PM * Full Code Date Activated Date Inactivated Comments 03/08/2022 5:08 PM 03/08/2022 10:52 PM Full CPR in case of cardiopulmonary arrest Care Teams Relief Docking Master Relationship Specialty Start Date End Date No, Physician PCP - General 12/23/22
--- OUTSIDE RECORDS SUMMARY | 2024-06-10 23:16 | XMS_ITS | CONTINUITY OF CARE DOCUMENT ---
Author Name armando roberts Address Unknown Organization [facility] Address [address] [place] [address] Phone [phone] Care Team Providers Care Load Haul Dump Operator Name Role Phone Prasad Vargas MD Unavailable [phone] Prasad Vargas MD Unavailable [phone] ANASTASIYA HERNANDEZ MD Unavailable [phone] INSURANCE PROVIDERS Payer name Policy type / Coverage type Randee red libertarian [place] (2) Medicaid [id number]
== END 2024-06-10 22:27 | disposition left against medical advice (07) ==
PROVIDERS: Emergency Provider Physician Assistant; PCP Internal Medicine
DX: R06.02 Shortness of breath (principal)
CPT/HCPCS: 93005; 99199

== ENCOUNTER 2024-11-18 18:02 | Emergency (ER) | payer OTHER, SELFPAY ==
--- NOTE | ~2024-11-18 | XR_ITS ---
EXAMINATION: XR chest 1V DATE: 11/18/2024 19:23 INDICATION: Upper respiratory tract infection TECHNIQUE: PA view of the chest was obtained. COMPARISON: Chest radiograph dated 07/22/2023 FINDINGS: The lungs are clear with no focal airspace opacities, pulmonary edema, pleural effusion or pneumothorax. The cardiomediastinal silhouette is normal. Mild lower thoracic dextrocurvature. 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 IMPRESSION: 1. No acute cardiopulmonary disease. Reviewed, dictated and finalized at location A.
[2024-11-18 18:11] VITALS: BP 123/74; PULSE 94; RESP 16; TEMP 36.4; O2SAT 97
[2024-11-18 18:40] VITALS: O2SAT 98
--- NOTE | 2024-11-18 19:24 | ED.GENADULT ---
HPI - General Adult General Chief complaint: Upper Respiratory Infection Stated complaint: headache, congested Time Seen by Provider: 11/18/24 19:03 History of Present Illness HPI narrative: Patient is a 39-year-old female who presents to the emergency department this evening complaining of URI symptoms. Patient states she has been having headache, sinus congestion, and went to [facility] last night and she was given steroids and discharge. She does have 2 kids at home were both sick with URI symptoms. Patient states that he tried take Tylenol earlier today for the headache but he did not improved. She denies any fevers or chills at home. No additional symptoms or concerns at this time. Related Data Allergies Allergy/AdvReac Type Severity Reaction Status Date / Time sulfamethoxazole (From Allergy Unknown Other Verified 11/18/24 18:41 Bactrim) trimethoprim (From Bactrim) Allergy Unknown Other Verified 11/18/24 18:41 Review of Systems Review of Systems: All systems are reviewed and are negative unless stated otherwise in the HPI. [facility] Past Medical History Medical History GERD (gastroesophageal reflux disease) Anxiety Asthma Surgical History Surgical History History of section History of tubal ligation [place] teeth removed Family History Family History Grandparent Asthma Sibling Asthma Mother Diabetes mellitus Hypertension Father Hypertension Social History Social History Social History: She lives at home with her 3 children ages 18, 8 and 1-year-old. 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 She has smoked as much as 0.5 packs of cigarettes per day since she was in her early 20s. She occasionally smokes marijuana. Every few months and only in moderation. Code status: Full code Surrogate decision maker: Nikki Crisostomo Smoking packs per day: 0.25 Smoking cigarettes per day: 5.0 Years smoked: 5 Smoking pack-years: 1.25 Smoking status: Current every day smoker Tobacco type: cigarettes Alcohol intake: current Substance use: never Substance use type: does not use Do You Feel Safe in your Home?: Yes Lack of Transportation: No Lack of Food: Sometimes True Current Housing: Decline to Answer Concerned About Future Housing: Decline to Answer Difficulty Paying Gas/Electric Bills: Decline to Answer Difficulty Paying for Meds: Decline to Answer Currently Unemployed: Decline to Answer Education: Decline to Answer Difficulty w/ Childcare or Family Care: Decline to Answer Gender identity (if verbalized by the patient): Female Sexual Orientation (if Verbalized by the Patient): Straight or Heterosexual Spiritual care concerns: No Exam Narrative: General: Alert, awake, afebrile, in no acute distress. HEENT: PERRL, no rhinorrhea, no post nasal drip, oropharynx clear. Neck: Trachea midline, no JVD, no lymphadenopathy. Cardiovascular: Regular rate and rhythm, no murmurs, rubs or gallops, no peripheral edema. Respiratory: Clear to auscultation bilaterally, no tachypnea, no wheezing, no rhonchi, no rubs, no respiratory distress. Abdomen: Soft, nontender, nondistended, no rebound, no guarding, no peritoneal signs. Musculoskeletal: No joint swelling or deformity, normal muscle tone. Skin: No rashes or petechia, no signs of infection. Psychiatric: Alert and oriented, normal behavior and judgment for situation. Neurological: Alert and oriented to person, place, and time. Follows all commands. No focal deficits, speech is clear and fluent. Course Vital Signs Vital signs: Vital Signs Temperature 97.6 F 11/18/24 18:11 Pulse Rate 94 11/18/24 18:11 Respiratory Rate 16 11/18/24 18:11 Blood Pressure 123/74 11/18/24 18:11 Pulse Oximetry 97 11/18/24 18:11 Oxygen Delivery Room Air 11/18/24 18:11 Temperature 97.6 F 11/18/24 18:11 Pulse Rate 94 11/18/24 18:11 Respiratory Rate 16 11/18/24 18:11 Blood Pressure 123/74 11/18/24 18:11 Pulse Oximetry 98 11/18/24 18:40 Oxygen Delivery Room Air 11/18/24 18:40 Medical Decision Making MDM Narrative Medical decision making narrative: The patient was evaluated by myself in the emergency department. History is obtained from patient who is an independent historian and physical exam was performed. External medical records were reviewed at this time. IV was established and pertinent tests were ordered. Patient was administered 1 L IV fluid bolus with normal saline, 15 mg of IV Toradol, 10 mg of IV Reglan and 25 mg IV Benadryl. Viral swabs were obtained and noted to be Negative for COVID /influenza / RSV. Imaging studies obtained included CXR which was independently interpreted by me revealing no acute process, which is pending final radiology interpretation. Differential diagnosis considerations include acute viral syndrome, sinusitis, migraine headache. Comorbidities impacting this visit include none. I have evaluated and discussed social determinants of health with the patient that could potentially impact subsequent diagnosis and treatment plans. On repeat assessment of the patient, reevaluation revealed that the patient is doing well and is in no acute distress. Patient symptoms have improved since she arrived to our emergency department. Patient states that her headache has completely resolved. Repeat vital signs were all reviewed and noted to be stable. Differential diagnosis and treatment plan were discussed with the patient at bedside. Patient agrees with discussion and after shared medical decision making agrees with discharge. All questions were answered to the patient's satisfaction. Patient will follow up with her PCP in 3-5 days. Patient was provided with strict return precautions and instructed to return to the emergency department if any new or worsening symptoms develop. The patient was discharged in stable condition. Vital Signs Vital Signs: Vital Signs Temperature 97.6 F 11/18/24 18:11 Pulse Rate 94 11/18/24 18:11 Respiratory Rate 16 11/18/24 18:11 Blood Pressure 123/74 11/18/24 18:11 Pulse Oximetry 97 11/18/24 18:11 Oxygen Delivery Room Air 11/18/24 18:11 Temperature 97.6 F 11/18/24 18:11 Pulse Rate 94 11/18/24 18:11 Respiratory Rate 16 11/18/24 18:11 Blood Pressure 123/74 11/18/24 18:11 Pulse Oximetry 98 11/18/24 18:40 Oxygen Delivery Room Air 11/18/24 18:40 Lab Data Labs: Lab Results 11/18/24 Range/Units 19:40 Influenza A (RT-PCR) Negative (Negative) Influenza B (RT-PCR) Negative (Negative) RSV (RT-PCR) Negative (Negative) SARS-CoV-2 RNA (RT-PCR) Negative (Negative) Discharge Plan Discharge Clinical Impression: URI (upper respiratory infection) Patient Disposition: Home Condition: Improved Instructions: Antibiotic Form, Viral Syndrome (ED) Additional Instructions: Please follow-up with the family doctor within the next 3-5 days. Return emergency department for any new or worsening symptoms develop. Patient Language: Latvian Prescriptions: No Action azithromycin 250 mg tablet See Rx Instructions PO .COMPLEX Qty: 6 0RF Rx Instructions: For 250 mg dose pack: take 500 mg today (day 1), then 250 mg for 4 days (days 2-5) PO varenicline tartrate [Chantix Starting Month Box] 0.5 mg (11)- 1 mg (42) tablets,dose pack See Rx Instructions PO PER PKG DIR Qty: 53 0RF Rx Instructions: PO PER PKG DIR albuterol sulfate [Ventolin HFA] 90 mcg/actuation HFA aerosol inhaler 2 inh inhalation Q4H PRN (Reason: shortness of breath or wheezing) Qty: 8.5 1RF Rx Instructions: DO NOT SUBSTITUTE. Trelegy Ellipta 100-62.5-25 mcg blister with device 1 inh inhalation DAILY Qty: 28 1RF Follow-up/Referrals: Mattie Yi TELEPHONE ORDER CLERK ROOM SERVICE [Primary Care Provider, Internal Medicine] - 3 Days Time of Disposition: 20:45
--- OUTSIDE RECORDS SUMMARY | 2024-11-18 19:32 | XMS_ITS | Clinical Summary ---
Author Organization [facility] Address [address] [place] [address] Care Team Providers Care Investment Professional Name Role Phone No, Physician Primary Care Provider [phone] Allergies No known active allergies Medications mometasone-form [...] 1 tablet (81 mg total) by mouth heel seat sander before breakfast 3 Active albuterol HFA (PROVENTIL [...] (05/09/2022): Added automatically from request for surgery [id number] care following delivery 02/25 Overview (03/23/2022): # [...] # Disposition: Follow up task sent to [facility] scheduling pool. Desires discharge home today. [...] Counseling Given: Not Answered Social Connection and Isolation Panel Answer Date Recorded In a typical week, how many times do you talk on the phone with family, friends, or neighbors? More than three times a week 03/11/2022 How often do you get togethe r with friends or relatives? More than three times a week 03/11/2022 How often do you attend chur ch or moravian services? Never 03/11/2022 Do you belong to any clubs o r organizations such as baptist groups, unions, fraternal or athletic groups, or [...] place to sleep or slept in a assisted (including now)? No 03/11/2022 [place] Depression Scale Answer Date Recorded [place] Depression Scale Total 8 05/06/2022 The thought [...] on file Legal Sex Female 7:43 PM PUBLIC INFORMATION RELATIONS MANAGER Gender Identity Not on file Sexual [...] l Y Livin g 1 7 JANY RODRIGES,ENRIQUE gentile, Meet Arnold MD Delivery Location:[facility] Main C ampus ([facility] L AND D PROCEDURE) Last Filed Vital [...] 2:49 PM CDT Height 170.2 cm (5' 7) 06/06/2023 2:49 PM CDT Body Mass Index 23.84 06/06/2023 2:49 PM CDT Plan of Treatment Health Maintenance Due Date Last Done Comments Breast Cancer Screening-Mammogram 1985 Hepatitis B Screening 2002 Regular Well Visit/Exam 18-64 2002 HPV Vaccines (1 - 3-dose SCDM series) 09/08/2011 Varicella Vaccines (1 of 2 - 13+ 2-dose series) 06/14/2015 Pneumococcal vaccine <65 (2 of 2 - PCV) 08/28/2016 0 08/29/2015 Cervical Cancer Screening 05/06/2023 05/06/2022 Depression Screening 05/06/2023 05/06/2022 Influenza Vaccine (#1) 2024 01/19/2022, 2021 DTaP/Tdap/Td Vaccine (3 - Td or Tdap) 02/24/2032, 05/17/2015 Hepatitis C Screening Completed 12/01/2021 Procedures Procedure Name Priority Date/Time Associated Diagnosis Comments PAP AND HIGH RISK HPV, REFLEX TO GENOTYPING Routine 05/06/2022 11:44 AM PUBLIC INFORMATION RELATIONS MANAGER care following delivery HEPATITIS C ANTIBODY Routine 12/01/2021 from Last 3 Months or Most Recently Relevant to Health Maintenance Results * Pap and High Risk HPV, reflex to Genotyping (05/06/2022 11:44 AM PUBLIC INFORMATION RELATIONS MANAGER) Thin prep (Pap test) 05/06/2022 11:44 AM PUBLIC INFORMATION RELATIONS MANAGER 05/06/2022 1:23 PM PUBLIC INFORMATION RELATIONS MANAGER Narrative PATHOLOGY [facility] - 05/17/2022 3:11 PM PUBLIC INFORMATION RELATIONS MANAGER EPIC results best viewed via link to PDF [facility] Marisol Rosa Laboratory [place] [address] Note to Patients: This report may contain [...] Gender: F : 1985 (Age: 36) Address: [address] [place] [address] [address], [place] [address] Hospital #: [id number] Service: EPIC DIRECTOR Location: Patient Type: [facility] Ancillary Taken: 05/06/2022 Received: 05/06/2022 Accessioned: 05/10/2022 [...] 68. This HPV test was performed at [facility] in [place], [place] utilizing the Gen-Probe Aptima assay. ml/05/17/2022 15:11 Jenny Nixon MS, CT (ASCP) Report Electronically Reviewed and Signed Out By Jenny Nioxn MS, CT (ASCP) 05/17/2022 15:11:39 Cervicovaginal Cytology [...] and histologic results be correlated for laboratory clinical quality assurance associate & improvement standards. FOR ALL HIGH-GRADE CASES [...] screening. The HPV test was performed by [facility], [address] [place] [address]. Report Images and scanned documents, if included only viewable in PDF version The performance characteristics of some immunohistochemical stains, in-situ hybridization and fluorescence in-situ hybridization tests and immunophenotyping by flow cytometry cited in this report (if any) were determined by the Surgical Pathology Department at [facility] as part of an ongoing quality lab assoc program and in compliance with federally mandated [...] determined by the Surgical Pathology Department of [facility]. It has not been cleared or approved by the U. S. Food and Drug Administration. Marylu Tariq MD LAB CYTOLOGY ORDERABLES F inal Result PATHOLOGY [facility] 3rd Floor [place], [place] [phone] * Hepatitis C antibody (12/01/2021) SCRIBED HCV ab neg Blood Pricila Le MD LAB MICROBIOLOGY - GENERAL ORDERABLES Final Result from Last 3 Months or Most Recently Relevant to Health Maintenance Insurance [facility] Advance Directives For more information, please contact: [phone] * Full Code (Latest Code Status on File) Date Activated Date Inactivated Comments 03/20/2022 3:50 AM 03/23/2022 3:29 PM * Full Code Date Activated Date Inactivated Comments 03/08/2022 5:08 PM 03/08/2022 10:52 PM Full CPR in case of cardiopulmonary arrest Care Teams Investment Professional Relationship Specialty Start Date End Date No, Physician PCP - General 12/23/22
[2024-11-18] MEDS: SODIUM CHLORIDE 0.9% IV 1,000 ML 999 ML IV CONT (19:47)
[2024-11-18] MEDS: KETOROLAC 15 MG/ML VIAL (*BKC) IV PUSH (19:47)
[2024-11-18] MEDS: METOCLOPRAMIDE HCL INJ 10 MG/2 ML VIAL IV PUSH (19:47)
[2024-11-18 20:00] VITALS: BP 146/83; PULSE 87; RESP 19; TEMP 36.9; O2SAT 99
[2024-11-18 20:34] LABS: Influenza A QL RT-PCR Negative (Negative); Influenza B QL RT-PCR Negative (Negative); RSV RNA, RT-PCR Negative (Negative); SARS-CoV-2 RNA PCR Negative (Negative)
== END 2024-11-18 20:55 | disposition home or self-care (01) ==
PROVIDERS: Physician Assistant; Emergency Provider Emergency Medicine; PCP Nurse Practitioner
DX: J06.9 Acute upper respiratory infection, unspecified (principal); Z20.822 Contact with and (suspected) exposure to COVID-19; J45.909 Unspecified asthma, uncomplicated; K21.9 Gastro-esophageal reflux disease without esophagitis; F17.210 Nicotine dependence, cigarettes, uncomplicated
CPT/HCPCS: 71045; 87637; 96361; 96374; 96375; 99284; J1200; J1885; J2765; J7030

== ENCOUNTER 2025-01-03 10:21 | Emergency (ER) | payer OTHER, SELFPAY ==
--- NOTE | ~2025-01-03 | XR_ITS ---
EXAMINATION: XR chest 2V DATE: 01/03/2025 11:29 INDICATION: Productive cough TECHNIQUE: Frontal and lateral images of the chest were obtained. COMPARISON: Chest x-ray 11/18/2024 FINDINGS: Heart is not enlarged. No pneumothorax. No pleural effusion. No free air the diaphragm. No focal pulmonary consolidation. Grossly stable right clavicular finding. IMPRESSION: 1. No acute pulmonary process identified. Reviewed, dictated and finalized at location Q.
[2025-01-03 10:24] VITALS: BP 129/70; PULSE 72; RESP 20; TEMP 36.6; O2SAT 100
--- NOTE | 2025-01-03 11:50 | ED_ITS ---
HPI - General Adult General Chief complaint: Upper Respiratory Infection Stated complaint: cough, congestion Time Seen by Provider: 01/03/25 10:56 History of Present Illness HPI narrative: 39-year-old female presents to the emergency department for evaluation for cough congestion and sinus pressure. Patient reports symptoms have been ongoing for greater than 1 week. Patient does report that her daughter has similar symptoms. Related Data Allergies Allergy/AdvReac Type Severity Reaction Status Date / Time sulfamethoxazole (From Allergy Unknown Other Verified 01/03/25 10:28 Bactrim) trimethoprim (From Bactrim) Allergy Unknown Other Verified 01/03/25 10:28 Review of Systems Review of Systems: All systems reviewed & are unremarkable except as noted in HPI and below PMFSH Past Medical History Medical History GERD (gastroesophageal reflux disease) Anxiety Asthma Surgical History Surgical History History of section History of tubal ligation [place] teeth removed Family History Family History Grandparent Asthma Sibling Asthma Mother Diabetes mellitus Hypertension Father Hypertension Social History Social History Social History: She lives at home with her 3 children ages 18, 8 and 1-year-old. 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 She has smoked as much as 0.5 packs of cigarettes per day since she was in her early 20s. She occasionally smokes marijuana. Every few months and only in moderation. Code status: Full code Surrogate decision maker: Nikki Crisostomo Smoking packs per day: 0.25 Smoking cigarettes per day: 5.0 Years smoked: 5 Smoking pack-years: 1.25 Smoking status: Current every day smoker Tobacco type: cigarettes Alcohol intake: current Substance use: never Substance use type: does not use Do You Feel Safe in your Home?: Yes Lack of Transportation: No Lack of Food: Sometimes True Current Housing: Decline to Answer Concerned About Future Housing: Decline to Answer Difficulty Paying Gas/Electric Bills: Decline to Answer Difficulty Paying for Meds: Decline to Answer Currently Unemployed: Decline to Answer Education: Decline to Answer Difficulty w/ Childcare or Family Care: Decline to Answer Gender identity (if verbalized by the patient): Female Sexual Orientation (if Verbalized by the Patient): Straight or Heterosexual Spiritual care concerns: No Exam Narrative: APPEARANCE: Well appearing, no pain, no distress, well-nourished. HEAD: normocephalic, atraumatic, sinus tenderness to palpation EYES: PERRLA/EOMI, conjunctivae clear. NOSE: Normal no drainage EARS:TMS clear with good light reflex. THROAT: Pharynx clear, no exudate. NECK: Supple. No adenopathy, no masses. RESPIRATORY: Congested lung sounds bilaterally CARDIOVASCULAR: Regular rate and rhythm without murmurs rubs or gallops. ABDOMINAL: Soft, nontender, nondistended, normal bowel sounds MUSCULOSKELETAL: Moves all extremities. Strength/ROM intact, No edema, No calf tenderness. NEURO: Alert. Cranial nerves II through XII intact. Good gait. Good coordination SKIN: Warm, dry. Normal Color Course Vital Signs Vital signs: Vital Signs Temperature 97.8 F 01/03/25 10:24 Pulse Rate 72 01/03/25 10:24 Respiratory Rate 20 01/03/25 10:24 Blood Pressure 129/70 01/03/25 10:24 Pulse Oximetry 100 01/03/25 10:24 Oxygen Delivery Room Air 01/03/25 10:24 Temperature 97.8 F 01/03/25 10:24 Pulse Rate 72 01/03/25 10:24 Respiratory Rate 20 01/03/25 10:24 Blood Pressure 129/70 01/03/25 10:24 Pulse Oximetry 100 01/03/25 10:24 Oxygen Delivery Room Air 01/03/25 10:24 Medical Decision Making [facility] Narrative Medical decision making narrative: 39-year-old female presents to the emergency department for evaluation for cough and congestion for I week. Differential Diagnosis Differential Diagnosis: Pneumonia, COVID, RSV, influenza, sinusitis, viral etiology Vital Signs Vital Signs: Vital Signs Temperature 97.8 F 01/03/25 10:24 Pulse Rate 72 01/03/25 10:24 Respiratory Rate 20 01/03/25 10:24 Blood Pressure 129/70 01/03/25 10:24 Pulse Oximetry 100 01/03/25 10:24 Oxygen Delivery Room Air 01/03/25 10:24 Temperature 97.8 F 01/03/25 10:24 Pulse Rate 72 01/03/25 10:24 Respiratory Rate 20 01/03/25 10:24 Blood Pressure 129/70 01/03/25 10:24 Pulse Oximetry 100 01/03/25 10:24 Oxygen Delivery Room Air 01/03/25 10:24 Lab Data Labs: Lab Results 01/03/25 Range/Units 11:00 Influenza A (RT-PCR) Negative (Negative) Influenza B (RT-PCR) Negative (Negative) RSV (RT-PCR) Negative (Negative) SARS-CoV-2 RNA (RT-PCR) Negative (Negative) Imaging Data Radiologist's impression: Impressions Chest X-Ray 01/03/25 11:39 IMPRESSION: 1. No acute pulmonary process identified. Discharge Plan Discharge Clinical Impression: Sinusitis Patient Disposition: Home Condition: Stable Instructions: Antibiotic Form, Sinusitis (ED) Additional Instructions: Antibiotic as directed until completed. Have close follow-up with your primary care physician. Patient Language: Serbian Prescriptions: New amoxicillin-pot clavulanate 875-125 mg tablet 1 tablet PO Q12H 7 Days Qty: 14 0RF fluconazole 150 mg tablet 150 mg PO ONCE Qty: 1 0RF Rx Instructions: One tablet after you complete your antibiotics No Action azithromycin 250 mg tablet See Rx Instructions PO .COMPLEX Qty: 6 0RF Rx Instructions: For 250 mg dose pack: take 500 mg today (day 1), then 250 mg for 4 days (days 2-5) PO varenicline tartrate [Chantix Starting Month Box] 0.5 mg (11)- 1 mg (42) tablets,dose pack See Rx Instructions PO PER PKG DIR Qty: 53 0RF Rx Instructions: PO PER PKG DIR albuterol sulfate [Ventolin HFA] 90 mcg/actuation HFA aerosol inhaler 2 inh inhalation Q4H PRN (Reason: shortness of breath or wheezing) Qty: 8.5 1 RF Rx Instructions: DO NOT SUBSTITUTE. Trelegy Ellipta 100-62.5-25 mcg blister with device 1 inh inhalation DAILY Qty: 28 1RF fluconazole 150 mg tablet 150 mg PO ONCE Qty: 2 0RF Rx Instructions: May repeat after 72 hours if needed Follow-up/Referrals: Mattie Yi [employer] [Primary Care Provider, Internal Medicine]
[2025-01-03 11:52] LABS: Influenza A QL RT-PCR Negative (Negative); Influenza B QL RT-PCR Negative (Negative); RSV RNA, RT-PCR Negative (Negative); SARS-CoV-2 RNA PCR Negative (Negative)
== END 2025-01-03 12:33 | disposition home or self-care (01) ==
PROVIDERS: Emergency Provider Emergency Medicine; PCP Nurse Practitioner
DX: J32.9 Chronic sinusitis, unspecified (principal); Z20.822 Contact with and (suspected) exposure to COVID-19; J45.909 Unspecified asthma, uncomplicated; K21.9 Gastro-esophageal reflux disease without esophagitis; F41.9 Anxiety disorder, unspecified; F17.210 Nicotine dependence, cigarettes, uncomplicated
CPT/HCPCS: 71046; 87637; 99283